=== PATIENT | male | born 1945 | race Caucasian/White ===

== ENCOUNTER 2018-06-08 05:07 | Day surgery (SDC) | payer MEDICARE, SELFPAY ==
[2018-06-04 15:15] VITALS: BMI 22.8
[2018-06-08] VITALS (7 sets, daily range): BP systolic 117–153; BP diastolic 70–90; PULSE 62–97; RESP 16–18; TEMP 36.5–36.9; O2SAT 95–98; BMI 22.2
--- NOTE | 2018-06-08 | COLBX_PTH ---
PATIENT: CHELE AHN LOC: EN U#:[id number] AGE/SX: 73/M ROOM: RE06/08/[address]: Dr. Juan Miguel Pulido MD : 1945 BED: DIS: 06/08/2018 SPEC #: [id number] RECD: 06/08/18 13:17 STATUS: DELON RERhea #: [id number] DELMI: 06/08/18 00:[address]: Juan Miguel Pulido DEPT: SURGICAL PATHOLOGY RECD BY: Isaias Bailey ENTERED: 06/08/18 13:20 SP TYPE: COLON BX OTHR DR: Dr. Genaro Pulido III, MD Tissues: Cecum, NOS Procedures: Surgery Specimen Level IV HEADER OPERATION: Colonoscopy (MAC) PRE-OP DIAGNOSIS: Family history of colon cancer TISSUE SUBMITTED: Cecal polyp MICROSCOPIC DIAGNOSIS Cecal polyp, biopsy: Fragments of tubular adenoma. Fragments of fecal material. SJ:mary 12/12/18 MICROSCOPIC DESCRIPTION Slides are reviewed. GROSS DESCRIPTION Received in fixative is one container labeled with the patient's name and designated cecal polyp. The specimen consists of multiple irregular fragments of armijo soft tissue mixed with fecal material that in aggregate measure 1.5 x 0.2 x 0.1 cm. The specimen is totally submitted in one cassette. / SJ:mary 06/08/18 TC:1 CPT: 01138
--- NOTE | 2018-06-08 07:00 | OP.ENDO_ITS ---
Patient Name: Cat Gonzalez Procedure Date: 06/08/2018 6:08 AM Date of : 1945 Age: 73 Procedure: Colonoscopy Indications: Family history of colon cancer in a first-degree relative Providers: Juan Miguel Pulido MD Referring MD: Juan Miguel Pulido MD Medicines: See the Anesthesia note for documentation of the administered medications Patient Profile: Last Colonoscopy: February 2013. Complications: No immediate complications. Procedure: Pre-Anesthesia Assessment: - Prior to the procedure, a History and Physical was performed, and patient medications and allergies were reviewed. The patient's tolerance of previous anesthesia was also reviewed. The risks and benefits of the procedure and the sedation options and risks were discussed with the patient. All questions were answered, and informed consent was obtained. Prior Anticoagulants: The patient has taken no previous anticoagulant or antiplatelet agents. ASA Grade Assessment: II - A patient with mild systemic disease. After reviewing the risks and benefits, the patient was deemed in satisfactory condition to undergo the procedure. After I obtained informed consent, the scope was passed under direct vision. Throughout the procedure, the patient's blood pressure, pulse, and oxygen saturations were monitored continuously. The Colonoscope was introduced through the anus and advanced to the cecum, identified by appendiceal orifice and ileocecal valve. The colonoscopy was performed without difficulty. The patient tolerated the procedure well. The quality of the bowel preparation was good. The ileocecal valve and the appendiceal orifice were photographed. Scope In: 6:40:54 AM Scope Withdrawal Time 0 hours 8 minutes 34 seconds Scope Out: 6:53:36 AM Total Procedure Duration Time 0 hours 12 minutes 42 seconds Findings: Hemorrhoids were found on perianal exam. Prostate normal Multiple diverticula were found in the sigmoid colon and descending colon. A 7 mm polyp was found in the cecum. The polyp was sessile. The polyp was removed with a cold snare. Resection and retrieval were complete. Impression: - Hemorrhoids found on perianal exam. - Diverticulosis in the sigmoid colon and in the descending colon. - One 7 mm polyp in the cecum, removed with a cold snare. Resected and retrieved. Recommendation: - Telephone my office for pathology results in 1 week. - Resume previous diet. - Continue present medications. - Repeat colonoscopy in 5 years for surveillance. Procedure Code(s): --- Professional --- 08238, Colonoscopy, flexible; with removal of tumor(s), polyp(s), or other lesion(s) by snare technique Diagnosis Code(s): --- Professional --- K64.9, Unspecified hemorrhoids D12.0, Benign neoplasm of cecum Z80.0, Family history of malignant neoplasm of digestive organs K57.30, Diverticulosis of large intestine without perforation or abscess without bleeding CPT copyright 2017 [employer]. All rights reserved. The codes documented in this report are preliminary and upon induction heating equipment setter review may be revised to meet current compliance requirements. Juan Miguel Pulido MD 06/08/2018 6:59:37 AM This report has been signed electronically. Number of Addenda: 0 Note Initiated On: 06/08/2018 6:08 AM
--- OUTSIDE RECORDS SUMMARY | 2018-07-25 04:42 | XMS RPT_ITS ---
:1945 Author Organization OHIP Care Team Providers Name Role Phone JACKELIN JAFFE (DIRECTOR OF SAFETY AND SECURITY) Referring Unavailable CEBUL IIIBUTCH Attending Unavailable CEBUL IIIBUTCH Attending Unavailable CEBUL IIIBUTCH Referring Unavailable MARIA T CORONA Referring Unavailable WILLIAM GARCIA (PA) Attending Unavailable CEBUL IIIBUTCH Attending Unavailable CEBUL IIIBUTCH Referring Unavailable RANI MATTSON ([facility]) Attending Unavailable CEBUL IIIBUTCH Attending Unavailable CEBUL IIIBUTCH Referring Unavailable RANI MATTSON ([facility]) Attending Unavailable BHARAT BELL Attending Unavailable CEBUL IIIBUTCH Referring Unavailable RANI MATTSON ([facility]) Attending Unavailable CEBUL IIIBUTCH Referring Unavailable CEBUL IIIBUTCH Attending Unavailable CEBUL IIIBUTCH Referring Unavailable CLAUDIO JOHNS Admitting Unavailable CLAUDIO JOHNS Attending Unavailable Juan Miguel Pulido Attending Unavailable RocklJuan Miguel Attending Unavailable Tess Juan Miguel Referring Unavailable Cebul IIIButch Primary Care Unavailable Juan Miguel Pulido Attending Unavailable Juan Miguel Pulido Referring Unavailable Cebul III, Butch Primary Care Unavailable Nurse, Surgery Attending Unavailable Cebul III, Butch Referring Unavailable RockJuan Miguel kilgore Attending Unavailable Bharat Bell Referring Unavailable PROBLEMS PROBLEMS DATE TYPE CONDITION / CODE ATTENDING STATUS SOURCE 07/19/2018 Active Other [place] [facility] NA Active [place] [facility] Main therapy / [place] Z79.899(ICD-10) Repository 07/13/2018 Unknown Z80.0 - Family CeJuan Miguel gonzalez Active [place] history of malignant Community neoplasm of Hospital digestive organs / Repository Z80.0(ICD-10) 07/13/2018 Unknown 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 Miguel 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 / Community D12.0(ICD-10) Hospital Repository 07/13/2018 Unknown K57.30 - CebulJuan Miguel Active [facility] Diverticulosis of [facility] large intestine Hospital without perforation Repository or abscess without bleeding / K57.30(ICD-10) 07/13/2018 Unknown K64.9 - Unspecified CebuJuan Miguel kilgore Active [facility] hemorrhoids / Community K64.9(ICD-10) Hospital Repository 06/04/2018 Unknown E04.2 - Nontoxic CebuJuan Miguel kilgore Active [place] multinodular goiter Community / E04.2(ICD-10) Hospital Repository 04/13/2018 Active Other intervertebral CLAUDIO JOHNS Active [place] disc degeneration, Clinic Other lumbosacral region / [place] M51.37(ICD-10) Repository 04/13/2018 Active Intervertebral disc CLAUDIO JOHNS Active [place] disorders with Clinic Other radiculopathy, [place] lumbar region / Repository M51.16(ICD-10) 11/19/2017 Active Benign prostatic NA Active [place] hyperplasia with Clinic Main lower urinary tract [place] symptoms / Repository N40.1(ICD-10) 11/19/2017 Active Other obstructive NA Active [place] and reflux uropathy Clinic Main / N13.8(ICD-10) [place] Repository 08/03/2017 Active Cough / R05(ICD-10) NA Active [facility] Main [place] Repository PROCEDURES PROCEDURES No Procedure Records FoundRESULTS RESULTS PROGRESS Observed: 07/20/2018 Status: COMPLETED Source: [place] 12:47 PM [facility] REPOSITORY HNO ID: [id number] Author: Butch Pulido III Service: (none) Author Type: Physician Type: Progress Notes Filed: 07/20/2018 12:47 PM Note Text: Pritesh, Good news?the lab results look fine. Continue healthy, balanced diet and stay physically active. Same medications. Butch Pulido III, MD, FAAFP PROGRESS Observed: 07/20/2018 Status: COMPLETED Source: [place] 10:30 AM [facility] REPOSITORY [facility] ID: [id number] Author: Butch Pulido III Service: (none) Author Type: Physician Type: Progress Notes Filed: 07/20/2018 11:50 AM Note Text: SUBJECTIVE: This is a 73 year old male that is here today for Chronic Medical Conditions. 1. ch insomnia--rare use of ambien [employer] will no longer pay for it. Needs to change to another med 2. paroxysmal atrial fib 3. SA node dysfunction 4. tachy-bora syndrome 5. moderate depression--improved. Smiling and laughing more. Getting out with friends. PAST MEDICAL HISTORY Diagnosis Date - A-fib ([facility]) - Arrhythmia - Asthma - Cardiac syncope 02/05/2016 - Chronic obstructive pulmonary disease (COPD) ([facility]) - Congestive heart failure ([facility]) - Degenerative cervical disc 02/05/2011 - Diverticulosis of colon (without mention of hemorrhage) Diverticulosis - Family history of other specified malignant neoplasm FX HX COLON CA - GERD (gastroesophageal reflux disease) 06/27/2011 - Hypertension 08/09/2012 - Hypertrophy of prostate without urinary obstruction and other lower urinary tract symptoms (LUTS) - Inguinal hernia without mention of obstruction or gangrene, bilateral, (not specified as recurrent) - Lumbar disc disease with radiculopathy 02/10/2014 - Mental disorder - Moderate episode of recurrent major depressive disorder (HCC) 03/24/2017 - Osteoporosis 07/15/2011 - Other and unspecified hyperlipidemia Hyperlipidemia - Other congenital hamartoses, 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 - Pacemaker - Peripheral vascular disease ([facility]) - Renal stone 09/05/2011 - Restless leg syndrome 07/30/2010 - Restless legs syndrome (RLS) 02/22/2015 - Tachy-bora syndrome (HCC) 11/19/2015 - Thyroid disorder - Unspecified functional disorder of intestine SPASTIC COLITIS - Unspecified hemorrhoids without mention of complication Hemorrhoids - Ventricular tachycardia (HCC) 06/28/13 flecainide - Vitamin D deficiency 07/17/2011 Current Outpatient Prescriptions on File Prior to Visit: Pramipexole 0.75 mg tablet TAKE 1 TABLET TWICE DAILY NEEDED atorvastatin (LIPITOR) 10 mg tablet Take 1 tablet by mouth once daily. For cholesterol. metoprolol succinate ER (TOPROL XL) 25 mg 24 hr tablet Take 1 tablet by mouth once daily. flecainide (TAMBOCOR) 100 mg tablet Take 1 tablet by mouth twice daily. tamsulosin ER (FLOMAX) 0.4 mg cap Take 1 capsule by mouth once daily. omeprazole (PRILOSEC) 20 mg capsule TAKE 1 CAPSULE EVERY DAY ON AN EMPTY STOMACH Cholecalciferol, Vitamin D3, 1,000 unit cap Take 1 capsule by mouth once daily. zolpidem (AMBIEN) 5 mg tablet Take 1 tablet by mouth at bedtime as needed for Sedation for up to 30 days. fluticasone (FLONASE) 50 mcg/actuation nasal spray Use 2 Sprays in each nostril once daily. Rinse mouth after use. No current facility-administered medications on file prior to visit. FAMILY HISTORY Problem Relation Age of Onset - Colon Cancer Father - Cancer Sister lung cancer - other (Parkinson's disease) Sister Social History Substance Use Topics - Smoking status: Former Smoker Packs/day: 0.10 Years: 2.00 Types: Cigarettes - Smokeless tobacco: Never Used Comment: 1975 - Alcohol use Yes Comment: occasionally BP 121/74 Pulse 71 Temp 36.1 ?C (96.9 ?F) (Right Tympanic) Resp 10 Wt 73.5 kg (162 lb) BMI 25.16 kg/m? . OBJECTIVE: APPEARANCE Well appearing, alert, in no acute distress, well-hydrated, well nourished. NECK Supple, no adenopathy; thyroid symmetric, normal size, no bruits HEART irregularly irregular pulse with normal S1 and S2, no murmurs, no gallops, no JVD appreciated LUNG clear to auscultation Appearance: well dressed well groomed, cooperative and pleasant Behavior: good eye contact and laughing and joking. Talking about missing his , but adding that he has to find a way to carry on Speech: fluent and coherent Mood: euthymic and happy Affect: appropriate Perceptions: none Thought process: goal directed Thought Content: normal Intelligence level: normal Insight: good Judgment: good Lab Results for Cat AHN ( ) as of 07/20/2018 11:24 Ref. Range 07/19/2018 09:55 Total Cholesterol, Nonfasting Latest Ref Range: <200 mg/dL 156 Triglycerides, Nonfasting Latest Ref Range: <150 mg/dL 141 HDL Cholesterol, Nonfasting Latest Ref Range: >39 mg/dL 43 LDL Cholesterol, Nonfasting Latest Ref Range: <100 mg/dL 85 Non HDL Cholesterol, Nonfasting Latest Ref Range: <130 mg/dL 113 VLDL Cholesterol, Nonfasting Latest Ref Range: <30 mg/dL 28 Total Chol/HDL Ratio, Nonfasting Latest Ref Range: <5.10 mg/dL 3.63 LDL/HDL Ratio, Nonfasting Latest Ref Range: <2.54 mg/dL 1.98 ASSESSMENT: atrial fibrillation--not on anticoagulant since 2013 sinus node dysfunction and tachy-bora syndrome--stable and s/p pacemaker- major depression--much improved normal grieving of 's -- depression /anxiety with insomnia--stable hyperlipidemia--at goal PLAN: healthy diet and stay active discontinue ambien and start hydroxyzine 50mg at bedtime as needed for sleep, You may cut trazodone in half if the med causes too much sedation same other medications Butch Pulido III MD CNOV Observed: 07/20/2018 Status: COMPLETED Source: [place] 10:20 AM [facility] REPOSITORY Office Visit (FAMPWS) Cat AHN ([id number]) 1945 M NFR Date Time Provider Department 07/20/18 10:20 AM BUTCH PULIDO IIIPWS During your visit today, we recorded the following information about you: Temperature Pulse Respiration Blood pressure 96.9 degrees 71/minute 10/minute 121/74 Weight 73.5 kg Butch Pulido III MD 07/20/2018 11:50 AM Signed SUBJECTIVE: This is a 73 year old male that is here today for Chronic Medical Conditions. 1. ch insomnia--rare use of ambien [employer] will no longer pay for it. Needs to change to another med 2. paroxysmal atrial fib 3. SA node dysfunction 4. tachy-bora syndrome 5. moderate depression--improved. Smiling and laughing more. Getting out with friends. PAST MEDICAL HISTORY Diagnosis Date - A-fib ([facility]) - Arrhythmia - Asthma - Cardiac syncope 02/05/2016 - Chronic obstructive pulmonary disease (COPD) ([facility]) - Congestive heart failure ([facility]) - Degenerative cervical disc 02/05/2011 - Diverticulosis of colon (without mention of hemorrhage) Diverticulosis - Family history of other specified malignant neoplasm FX HX COLON CA - GERD (gastroesophageal reflux disease) 06/27/2011 - Hypertension 08/09/2012 - Hypertrophy of prostate without urinary obstruction and other lower urinary tract symptoms (LUTS) - Inguinal hernia without mention of obstruction or gangrene, bilateral, (not specified as recurrent) - Lumbar disc disease with radiculopathy 02/10/2014 - Mental disorder - Moderate episode of recurrent major depressive disorder ([facility]) 03/24/2017 - Osteoporosis 07/15/2011 - Other and unspecified hyperlipidemia Hyperlipidemia - Other congenital hamartoses, not elsewhere classified ([facility]) skull - Pacemaker - Peripheral vascular disease ([facility]) - Renal stone 09/05/2011 - Restless leg syndrome 07/30/2010 - Restless legs syndrome (RLS) 02/22/2015 - Tachy-bora syndrome ([facility]) 11/19/2015 - Thyroid disorder - Unspecified functional disorder of intestine SPASTIC COLITIS - Unspecified hemorrhoids without mention of complication Hemorrhoids - Ventricular tachycardia ([facility]) 06/28/13 flecainide - Vitamin D deficiency 07/17/2011 Current Outpatient Prescriptions on File Prior to Visit: Pramipexole 0.75 mg tablet TAKE 1 TABLET TWICE DAILY NEEDED atorvastatin (LIPITOR) 10 mg tablet Take 1 tablet by mouth once daily. For cholesterol. metoprolol succinate ER (TOPROL XL) 25 mg 24 hr tablet Take 1 tablet by mouth once daily. flecainide (TAMBOCOR) 100 mg tablet Take 1 tablet by mouth twice daily. tamsulosin ER (FLOMAX) 0.4 mg cap Take 1 capsule by mouth once daily. omeprazole (PRILOSEC) 20 mg capsule TAKE 1 CAPSULE EVERY DAY ON AN EMPTY STOMACH Cholecalciferol, Vitamin D3, 1,000 unit cap Take 1 capsule by mouth once daily. zolpidem (AMBIEN) 5 mg tablet Take 1 tablet by mouth at bedtime as needed for Sedation for up to 30 days. fluticasone (FLONASE) 50 mcg/actuation nasal spray Use 2 Sprays in each nostril once daily. Rinse mouth after use. No current facility-administered medications on file prior to visit. FAMILY HISTORY Problem Relation Age of Onset - Colon Cancer Father - Cancer Sister lung cancer - other (Parkinson's disease) Sister Social History Substance Use Topics - Smoking status: Former Smoker Packs/day: 0.10 Years: 2.00 Types: Cigarettes - Smokeless tobacco: Never Used Comment: 1975 - Alcohol use Yes Comment: occasionally BP 121/74 Pulse 71 Temp 36.1 ?C (96.9 ?F) (Right Tympanic) Resp 10 Wt 73.5 kg (162 lb) BMI 25.16 kg/m? . OBJECTIVE: APPEARANCE Well appearing, alert, in no acute distress, well- hydrated, well nourished. NECK Supple, no adenopathy; thyroid symmetric, normal size, no bruits HEART irregularly irregular pulse with normal S1 and S2, no murmurs, no gallops, no JVD appreciated LUNG clear to auscultation Appearance: well dressed well groomed, cooperative and pleasant Behavior: good eye contact and laughing and joking. Talking about missing his , but adding that he has to find a way to carry on Speech: fluent and coherent Mood: euthymic and happy Affect: appropriate Perceptions: none Thought process: goal directed Thought Content: normal Intelligence level: normal Insight: good Judgment: good Lab Results for Cat AHN ( ) as of 07/20/2018 11:24 Ref. Range 07/19/2018 09:55 Total Cholesterol, Nonfasting Latest Ref Range: <200 mg/dL 156 Triglycerides, Nonfasting Latest Ref Range: <150 mg/dL 141 HDL Cholesterol, Nonfasting Latest Ref Range: >39 mg/dL 43 LDL Cholesterol, Nonfasting Latest Ref Range: <100 mg/dL 85 Non HDL Cholesterol, Nonfasting Latest Ref Range: <130 mg/dL 113 VLDL Cholesterol, Nonfasting Latest Ref Range: <30 mg/dL 28 Total Chol/HDL Ratio, Nonfasting Latest Ref Range: <5.10 mg/dL 3.63 LDL/HDL Ratio, Nonfasting Latest Ref Range: <2.54 mg/dL 1.98 ASSESSMENT: atrial fibrillation--not on anticoagulant since 2013 sinus node dysfunction and tachy-bora syndrome--stable and s/p pacemaker- major depression--much improved normal grieving of 's -- depression /anxiety with insomnia--stable hyperlipidemia--at goal PLAN: healthy diet and stay active discontinue ambien and start hydroxyzine 50mg at bedtime as needed for sleep, You may cut trazodone in half if the med causes too much sedation same other medications SANIA Ramon MD, III MD 07/20/2018 10:48 AM Signed PLAN: healthy diet and stay active discontinue ambien and start hydroxyzine 50mg at bedtime as needed for sleep, You may cut trazodone in half if the med causes too much sedation same other medications Butch Pulido III MD Referring Provider: BUTCH PULIDO III [[id number]] Allergies As of Date: 07/20/2018 (No Known Allergies) Date Reviewed: 07/20/2018 Reviewed by: Izabella Silverman Ma - Fully Assessed Reason for Visit: Medication Follow-up [270] Primary Visit Diagnosis:Paroxysmal atrial fibrillation (HCC) [I48.0] Other Visit Diagnoses:Essential hypertension [I10] Tachy-bora syndrome (HCC) [I49.5] Sinus node dysfunction (HCC) [I49.5] Moderate episode of recurrent major depressive disorder (HCC) [F33.1] Pacemaker [Z95.0] Chronic insomnia [F51.04] Hyperlipidemia, unspecified hyperlipidemia type [E78.5] Order(s):traZODone (DESYREL) 50 mg tabletTake 1 tablet by mouth daily at bedtime. as needed for sleepDisp: 90 tabletRfl: 3 Prescriptions as of 07/20/2018 Sig: PRAMIPEXOLE 0.75 MG TABLET TAKE 1 TABLET TWICE DAILY * ATORVASTATIN 10 MG TABLET Take 1 tablet by mouth once d* METOPROLOL SUCCINATE ER 25 MG* Take 1 tablet by mouth once d* FLECAINIDE 100 MG TABLET Take 1 tablet by mouth twice * TAMSULOSIN 0.4 MG CAPSULE Take 1 capsule by mouth once * OMEPRAZOLE 20 MG CAPSULE,CHATA* TAKE 1 CAPSULE EVERY DAY ON A* CHOLECALCIFEROL (VITAMIN D3) * Take 1 capsule by mouth once * TRAZODONE 50 MG TABLET Take 1 tablet by mouth daily * FLUTICASONE 50 MCG/ACTUATION * Use 2 Sprays in each nostril * More... More... More... Problem List As Of Date 07/20/2018 Noted Resolved Unspecified functional disorder of intestine [K* 2018 More... FAMILY HX-MALIGNANCY NEC [Z80.8] More... Inguinal hernia without mention of obstruction * 06/06/2014 ESOPHAGEAL REFLUX [K21.9] INVALID FOR* Anxiety state, unspecified [F41.1] INVALID FOR*07/20/2018 Disorders of bursae and tendons in shoulder reg*INVALID FOR*07/10/2016 HEMORRHOIDS EXTERNAL THROMBOSED [K64.5] INVALID FOR*07/10/2016 MITRAL/AORTIC FAB INSUFF [I08.0] INVALID FOR*10/20/2007 BPH with obstruction/lower urinary tract sympto*INVALID FOR* Chest pain, unspecified [R07.9] INVALID FOR*07/10/2016 LUMB/LUMBOSAC DISC DEGEN [M51.37] INVALID FOR* Skin cancer of anterior chest [C44.509] INVALID FOR*07/20/2018 Restless leg syndrome [G25.81] INVALID FOR* Degenerative cervical disc [M50.30] INVALID FOR* GERD (gastroesophageal reflux disease) [K21.9] INVALID FOR* Osteoporosis [M81.0] INVALID FOR* Vitamin D deficiency [E55.9] INVALID FOR* Renal stone [N20.0] INVALID FOR* Erectile dysfunction [N52.9] INVALID FOR* Testalgia [N50.819] INVALID FOR*07/10/2016 Noncompliance [Z91.19] INVALID FOR*06/06/2014 Paroxysmal atrial fibrillation (HCC) [I48.0] INVALID FOR* More... Congestive heart failure (HCC) [I50.9] INVALID FOR*06/06/2014 More... 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 Mitral valve regurgitation [I34.0] INVALID FOR* More... Hyperlipidemia [E78.5] INVALID FOR* More... More... More... Mechanically assisted ventilation [Z99.11] INVALID FOR*08/07/2012 More... Stress hyperglycemia [R73.9] INVALID FOR*06/06/2014 More... Atelectasis [J98.11] INVALID FOR*06/06/2014 More... Hypotension, unspecified [I95.9] INVALID FOR*08/09/2012 More... Hypertension [I10] INVALID FOR* More... More... SUMMARY [V999.95] INVALID FOR* More... Leukocytosis [D72.829] INVALID FOR*2018 More... Multiple thyroid nodules [E04.2] INVALID FOR* S/P cervical spinal fusion [Z98.1] INVALID FOR* Cervical strain [S16.1XXA] INVALID FOR*2018 Myofascial pain [M79.18] INVALID FOR*2018 Nonsustained ventricular tachycardia (HCC) [I47*INVALID FOR*06/06/2014 Near syncope [R55] INVALID FOR*06/06/2014 S/P mitral valve repair [Z98.890] INVALID FOR* Ventricular tachycardia [I47.2] INVALID FOR* Lumbar disc disease with radiculopathy [M51.16] INVALID FOR*2018 Hip arthritis [M16.10] INVALID FOR*2018 Prostate cancer (HCC) [C61] INVALID FOR* Displacement of lumbar intervertebral disc with*INVALID FOR*2018 Situational depression [F43.21] INVALID FOR*2018 Restless legs syndrome (RLS) [G25.81] INVALID FOR* IT band syndrome [M76.30] INVALID FOR*11/19/2015 Tachy-bora syndrome (HCC) [I49.5] INVALID FOR* Lumbar facet arthropathy (HCC) [M47.816] INVALID FOR* Trochanteric bursitis of left hip [M70.62] INVALID FOR*2018 Sinus node dysfunction (HCC) [I49.5] INVALID FOR* Cardiac syncope [R55] INVALID FOR* Impaired swallowing [R13.10] INVALID FOR* Moderate episode of recurrent major depressive *INVALID FOR* Pacemaker [Z95.0] INVALID FOR* Lumbar disc disease with radiculopathy [M51.16] INVALID FOR*07/20/2018 More... Lumbar disc herniation with radiculopathy [M51.*INVALID FOR*07/20/2018 More... Displacement of lumbar intervertebral disc with*INVALID FOR*07/20/2018 Other instructions from your clinician: PLAN: healthy diet and stay active discontinue ambien and start hydroxyzine 50mg at bedtime as needed for sleep, You may cut trazodone in half if the med causes too much sedation same other medications Butch Pulido III MD Prescriptions ordered this encounter Disp Refills Start End TRAZODONE 50 MG TABLET 90 t* 3 07/20/2018 Route: ORAL Sig: Take 1 tablet by mouth daily at bedtime. as needed for sleep Medications Discontinued During This Encounter zolpidem (AMBIEN) 5 mg tablet 30 t* 2 09/11/2017 07/20/2018 Class: Print RX Route: ORAL Sig: Take 1 tablet by mouth at bedtime as needed for Sedation for up to 30 days. Disc: Not on Formulary Encounter Status:Closed by BUTCH PULIDO III, MD on 07/20/18 LIPID PANEL, NONFAST Collected: 07/19/2018 Status: F Source: [place] 9:55 AM [facility] [place] REPOSITORY TYPE CODE TESTS RESULT OUT OF REFERENCE UNITS RANGE LAB CHOLNF <200 mg/dL Total Cholesterol NF 156 Result Comment: <200 mg/dL, Desirable 200-239 mg/dL, Borderline high >239 mg/dL, High LAB TRIGNF <150 mg/dL Triglycerides, NF 141 Result Comment: <150 mg/dL, Normal 150-199 mg/dL, Borderline high 200-499 mg/dL, High >499 mg/dL, Very high LAB HDLNF >39 mg/dL HDL Cholesterol, NF 43 Result Comment: 40-59 mg/dL, Acceptable >59 mg/dL, High: Negative risk factor for coronary heart disease <40 mg/dL, Low: Positive risk factor for coronary heart disease LAB LDLNF <100 mg/dL LDL Cholesterol, NF 85 Result Comment: <100 mg/dL, Optimal 100-129 mg/dL, Near optimal/above optimal 130-159 mg/dL, Borderline high 160-189 mg/dL, High >189 mg/dL, Very high Secondary prevention optimal LDL Cholesterol levels are recommended to be < 70 mg/dL LAB NOHDLN <130 mg/dL Non HDL Chol, 113 NF Result Comment: <130 mg/dL, Optimal 130-159 mg/dL, Near optimal/above optimal 160-189 mg/dL, Borderline high 190-219 mg/dL, High >219 mg/dL, Very high Secondary prevention optimal non HDL Cholesterol levels are recommended to be < 100 mg/dL LAB VLDLNF <30 mg/dL VLDL Cholesterol, NF 28 LAB TCHDLN <5.10 mg/dL T Chol/HDL Ratio NF 3.63 LAB LDLHDN <2.54 mg/dL LDL/HDL Ratio, NF 1.98 Result Comment: Reference: 1. National Cholesterol Education Program ATP III Guideline At-A-Glance Quick Desk Reference: National Heart, Lung, and Blood [place]. National Institutes of Health. 2001: NIH Publication No. 01-3305. 2. An International Atherosclerosis Society position paper: global recommendations for the management of dyslipidemia: executive summary, Atherosclerosis. 2014: 232(2):410-413. Performed By: #### LIPNF #### [facility] [address] [id number] BASIC METABOLIC PANL Collected: 07/19/2018 Status: F Source: [place] 9:52 AM [facility] REPOSITORY TYPE CODE TESTS RESULT OUT OF REFERENCE UNITS RANGE LAB GLU 74-99 mg/dL Glucose 97 Result Comment: The [place] Diabetes Association (ADA) provides guidance for cutoff values for fasting glucose and random glucose. The ADA defines fasting as no caloric intake for at least 8 hours. Fas ting plasma glucose results between 100 to 125 mg/dL indicate increased risk for diabetes (prediabetes). Fasting plasma glucose results greater than or equal to 126 mg/dL meet the criteria for diagnosis of diabetes. In the absence of unequivocal hyperglycemia, results should be confirmed by repeat testing. In a patient with classic symptoms of hyperglycemia or hyperglycemic crisis, random plasma glucose results greater than or equal to 200 mg/dL meet the criteria for diagnosis of diabetes. Reference: Standards of Medical Care in Diabetes 2016, [place] [employer]. Diabetes Care. 2016.39(Suppl 1). LAB BUN 9-24 mg/dL BUN High 25 LAB CRET 0.73-1.22 mg/dL Creatinine 0.81 LAB NA 136-144 mmol/L Sodium 139 LAB K 3.7-5.1 mmol/L Potassium 4.0 LAB CL 97-105 mmol/L Chloride 102 LAB CO2 22-30 mmol/L CO2 26 LAB AGAP 9-18 mmol/L Anion Gap 11 LAB CA 8.5-10.2 mg/dL Calcium, Total 9.1 LAB GFRAA eGFR- Amer. >60 LAB GFRNAA . eGFR-All Other Races >60 Result Comment: eGFR (Estimated GFR) Units of measure: mL/min/1.73 meters squared eGFR is derived from the reexpressed MDRD Study equation using the following parameters: serum creatinine, age, gender and race. The creatinine assay has been calibrated to be traceable to IDMS. An eGFR <60 mL/min/1.73m2 for >3 months is consistent with chronic kidney disease. Refer to KDOQI guidelines for clinical interpretation. In patients with unstable renal function, e.g. those with acute kidney injury, the eGFR may not accurately reflect actual GFR. Performed By: #### BMP #### [facility] [place], [place] [address] CNOV Observed: 06/14/2018 Status: COMPLETED Source: [place] 9:00 AM [facility] RE[facility] Office Visit (PNMDNA) Cat AHN ([id number]) 1945 M NFR Date Time Provider Department 06/14/18 9:00 AM RANI MATTSON (LUIS F) PNMDMEME During your visit today, we recorded the following information about you: Pulse Weight Height 93/minute 73 kg 1.709 m Rani Mattson APRN.CNP 06/14/2018 9:34 AM Signed SUBJECTIVE: Cat Ahn presents to [facility] for a followup appointment for low back post injection. Since the last visit, Cat Ahn states the pain has been improving. Current pain intensity is 0 on a scale of 0-10. Pain located in Back area and does not radiate. Pain described as N/A The patient Denies weakness, numbness, tingling, morning stiffness, leg pain and leg weakness. Symptoms interfere with nothing. Pain is exacerbated by nothing. Pain is mitigated by nothing. The patient is overall improved with the injections by 99%. REVIEW OF SYSTEMS: Constitutional: (-) Fever (-) Night Sweats (-) Weight Gain (-) Weight Loss (-) Fatigue Cardiovascular: (-) Chest Pain (-) Palpitations (-) Lightheadedness (-) Swelling of Ankles (+) Hx Heart Surgery Respiratory: (-) Shortness of Breath (-) Cough (-) Wheezing (+) Snoring Gastrointestinal: (-) Incontinence (-) Abdominal Pain (-) Diarrhea (-) Constipation (-) Nausea/Vomiting (+) Heart Burn Endocrine: (+) Thyroid Disorder (-) Diabetes Hematologic: (-) Prolonged Bleeding (-) Easy Bruising Genitourinary: (-) Incontinence (-) Frequency (-) Urinary Urgency Skin: (-) Rashes (-) Itching (-) Other Lesions Neurologic: (-) Headache (-) Double Vision (-) Confusion (-) Paralysis Psychiatric: (-) Depression (-) Anxiety (-) Delusions (-) Hallucinations (-) Personal History of Alcohol or Substance Abuse (+) Family History of Alcohol or Substance Abuse OBJECTIVE: Pulse 93 Ht 5' 7.283 (1.71m) Wt 161 lb (73.0kg) SpO2 96% BMI 25.00 kg/(m2). PHYSICAL EXAMINATION: General appearance: Well appearing, in no acute distress, alert Skin: Skin color, texture, turgor normal, no rashes or lesions Neck: No pain to palpation over the cervical paraspinous muscles. No pain with neck flexion, extension, or lateral flexion Cardiovascular: Regular rate Lungs: Normal respiratory rate and rhythm Abdomen: Abdomen soft and non-tender. Back: Intact range of motion with pain reproduction. Facet:positive facet loading Spine: Reports Tenderness on palpation: Lumbar/Pelvic axial Extremities: No deformities, edema, or skin discoloration. Good capillary refill. Musculoskeletal: Joint pain denies Neuro: No loss of sensation is noted. Station and Gait: Normal stance, normal gait. Motor: Exhibits full strength in all four extremities. Trigger points: none. ASSESSMENT: Assessment : Patient reports lower back pain, denies radicular symptoms He had a bilateral L4, 5, S1 facet injections on 11?8?18 and reports 99% improvement He takes baclofen and [place] when necessary Encounter Diagnosis ICD-10-CM 1. Lumbar disc disease with radiculopathy M51.16 2. Lumbar facet arthropathy M47.816 3. Degeneration of lumbar or lumbosacral intervertebral disc M51.37 4. Displacement of lumbar intervertebral disc without myelopathy M51.26 PDMP website checked and validated. All prescriptions have been APPROPRIATELY filled. No suspicious activity was identified. 06/14/2018 by Mahogany Abreu Ma Narcotic Agreement reviewed and signed?: N/A on June 14, 2018 The pain panel was N/A PLAN: Injection history was reviewed. Medication use and compliance were reviewed. 1. Continue medication management through the Pain Management [facility] 2. No refills needed for the baclofen Signed Prescriptions Disp Refills HYDROcodone-acetaminophen (NORCO) 5-325 mg per tablet 12 tablet 0 Sig: Take 1 tablet by mouth every 6 hours as needed for up to 3 days. MIMA Class: C-II JOLIE: No 3. Interventional procedure options discussed. None at this time 4. Encouraged regular home exercise program. 5) F/U in 6 months This note was partially generated using [email or web address] voice recognition system. The above plan and management options were discussed at length with patient. Patient is in agreement with the above and verbalized understanding. Rani Mattson APRN, DIRECTOR OF SAFETY AND SECURITY June 14, 2018 Referring Provider: SELF [200] Allergies As of Date: 06/14/2018 (No Known Allergies) Date Reviewed: 06/14/2018 Reviewed by: Mahogany Abreu Ma - Fully Assessed Reason for Visit: Follow Up [171] Primary Visit Diagnosis:Lumbar disc disease with radiculopathy [M51.16] Other Visit Diagnoses:Lumbar facet arthropathy [M47.816] Degeneration of lumbar or lumbosacral intervertebral disc [M51.37] Displacement of lumbar intervertebral disc without myelopathy [M51.26] Order(s):HYDROcodone-acetaminophen (NORCO) 5-325 mg per tabletTake 1 tablet by mouth every 6 hours as needed for up to 3 days.Disp: 12 tabletRfl: 0 Prescriptions as of 06/14/2018 Sig: ATORVASTATIN 10 MG TABLET Take 1 tablet by mouth once d* CHOLECALCIFEROL (VITAMIN D3) * Take 1 capsule by mouth once * FLECAINIDE 100 MG TABLET Take 1 tablet by mouth twice * FLUTICASONE 50 MCG/ACTUATION * Use 2 Sprays in each nostril * METOPROLOL SUCCINATE ER 25 MG* Take 1 tablet by mouth once d* OMEPRAZOLE 20 MG CAPSULE,CHATA* TAKE 1 CAPSULE EVERY DAY ON A* PRAMIPEXOLE 0.75 MG TABLET Take 0.75 mg by mouth twice d* TAMSULOSIN 0.4 MG CAPSULE Take 1 capsule by mouth once * ZOLPIDEM 5 MG TABLET Take 1 tablet by mouth at bed* HYDROCODONE 5 MG-ACETAMINOPHE* Take 1 tablet by mouth every * More... More... More... Problem List As Of Date 06/14/2018 Noted Resolved Unspecified functional disorder of intestine [K* 2018 More... FAMILY HX-MALIGNANCY NEC [Z80.8] More... Inguinal hernia without mention of obstruction * 06/06/2014 ESOPHAGEAL REFLUX [K21.9] INVALID FOR* ANXIETY STATE NOS [F41.1] INVALID FOR* Disorders of bursae and tendons in shoulder reg*INVALID FOR*07/10/2016 HEMORRHOIDS EXTERNAL THROMBOSED [K64.5] INVALID FOR*07/10/2016 MITRAL/AORTIC FAB INSUFF [I08.0] INVALID FOR*10/20/2007 BPH with obstruction/lower urinary tract sympto*INVALID FOR* HYPERTONICITY OF BLADDER [N31.8] INVALID FOR* Chest pain, unspecified [R07.9] INVALID FOR*07/10/2016 LUMB/LUMBOSAC DISC DEGEN [M51.37] INVALID FOR* Skin Cancer of Anterior Chest [C44.519] INVALID FOR* Restless leg syndrome [G25.81] INVALID FOR* Degenerative cervical disc [M50.30] INVALID FOR* GERD (gastroesophageal reflux disease) [K21.9] INVALID FOR* Osteoporosis [M81.0] INVALID FOR* Vitamin D deficiency [E55.9] INVALID FOR* Renal stone [N20.0] INVALID FOR* Erectile dysfunction [N52.9] INVALID FOR* Testalgia [N50.819] INVALID FOR*07/10/2016 Noncompliance [Z91.19] INVALID FOR*06/06/2014 Paroxysmal atrial fibrillation (HCC) [I48.0] INVALID FOR* More... Congestive heart failure (HCC) [I50.9] INVALID FOR*06/06/2014 More... 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 Mitral valve regurgitation [I34.0] INVALID FOR* More... Hyperlipidemia [E78.5] INVALID FOR* More... More... More... Mechanically assisted ventilation [Z99.11] INVALID FOR*08/07/2012 More... Stress hyperglycemia [R73.9] INVALID FOR*06/06/2014 More... Atelectasis [J98.11] INVALID FOR*06/06/2014 More... Hypotension, unspecified [I95.9] INVALID FOR*08/09/2012 More... Hypertension [I10] INVALID FOR* More... More... SUMMARY [V999.95] INVALID FOR* More... Leukocytosis [D72.829] INVALID FOR*2018 More... Multiple thyroid nodules [E04.2] INVALID FOR* History of atrial fibrillation [Z86.79] INVALID FOR* DDD (degenerative disc disease), cervical [M50.*INVALID FOR* S/P cervical spinal fusion [Z98.1] INVALID FOR* Cervical strain [S16.1XXA] INVALID FOR*2018 Myofascial pain [M79.18] INVALID FOR*2018 Nonsustained ventricular tachycardia (HCC) [I47*INVALID FOR*06/06/2014 Near syncope [R55] INVALID FOR*06/06/2014 S/P mitral valve repair [Z98.890] INVALID FOR* Ventricular tachycardia [I47.2] INVALID FOR* Lumbar disc disease with radiculopathy [M51.16] INVALID FOR*2018 Hip arthritis [M16.10] INVALID FOR*2018 Prostate cancer (HCC) [C61] INVALID FOR* Displacement of lumbar intervertebral disc with*INVALID FOR*2018 Elevated prostate specific antigen (PSA) [R97.2*INVALID FOR* Situational depression [F43.21] INVALID FOR*2018 Restless legs syndrome (RLS) [G25.81] INVALID FOR* IT band syndrome [M76.30] INVALID FOR*11/19/2015 Tachy-bora syndrome (HCC) [I49.5] INVALID FOR* History of lumbar surgery [Z98.890] INVALID FOR* Lumbar facet arthropathy (HCC) [M47.816] INVALID FOR* Trochanteric bursitis of left hip [M70.62] INVALID FOR*2018 Sinus node dysfunction (HCC) [I49.5] INVALID FOR* Cardiac syncope [R55] INVALID FOR* Impaired swallowing [R13.10] INVALID FOR* Moderate episode of recurrent major depressive *INVALID FOR* Pacemaker [Z95.0] INVALID FOR* Lumbar disc disease with radiculopathy [M51.16] INVALID FOR* Degeneration of lumbosacral intervertebral disc*INVALID FOR* More... Lumbar disc herniation with radiculopathy [M51.*INVALID FOR* More... Displacement of lumbar intervertebral disc with*INVALID FOR* Prescriptions ordered this encounter Disp Refills Start End HYDROCODONE 5 MG-ACETAMINOPHEN 325 M* 12 t* 0 06/14/2018 06/17/2018 Class: Print RX Route: ORAL Sig: Take 1 tablet by mouth every 6 hours as needed for up to 3 days. Medications Discontinued During This Encounter HYDROcodone-acetaminophen (NORCO) 5-* 12 t* 0 12/24/2017 06/14/2018 Class: Print RX Route: ORAL Sig: Take 1 tablet by mouth every 6 hours as needed for up to 3 days. Disc: Reason for discontinue is not on file. Encounter Status:Closed by RANI MATTSON on 06/14/18 PROGRESS Observed: 06/14/2018 Status: COMPLETED Source: [place] 8:59 AM [facility] REPOSITORY O ID: [id number] Author: Rani Lazo (Survey Supervisor) Kelly Service: (none) Author Type: Nurse Practitioner Type: Progress Notes Filed: 06/14/2018 9:34 AM Note Text: SUBJECTIVE: [facility] for a followup appointment for low back post injection. Since the last visit, Cat Ahn states the pain has been improving. Current pain intensity is 0 on a scale of 0-10. Pain located in Back area and does not radiate. Pain described as N/A The patient Denies weakness, numbness, tingling, morning stiffness, leg pain and leg weakness. Symptoms interfere with nothing. Pain is exacerbated by nothing. Pain is mitigated by nothing. The patient is overall improved with the injections by 99%. REVIEW OF SYSTEMS: Constitutional: (-) Fever (-) Night Sweats (-) Weight Gain (-) Weight Loss (-) Fatigue Cardiovascular: (-) Chest Pain (-) Palpitations (-) Lightheadedness (-) Swelling of Ankles (+) Hx Heart Surgery Respiratory: (-) Shortness of Breath (-) Cough (-) Wheezing (+) Snoring Gastrointestinal: (-) Incontinence (-) Abdominal Pain (-) Diarrhea (-) Constipation (-) Nausea/Vomiting (+) Heart Burn Endocrine: (+) Thyroid Disorder (-) Diabetes Hematologic: (-) Prolonged Bleeding (-) Easy Bruising Genitourinary: (-) Incontinence (-) Frequency (-) Urinary Urgency Skin: (-) Rashes (-) Itching (-) Other Lesions Neurologic: (-) Headache (-) Double Vision (-) Confusion (-) Paralysis Psychiatric: (-) Depression (-) Anxiety (-) Delusions (-) Hallucinations (-) Personal History of Alcohol or Substance Abuse (+) Family History of Alcohol or Substance Abuse OBJECTIVE: Pulse 93 Ht 5' 7.283 (1.71m) Wt 161 lb (73.0kg) SpO2 96% BMI 25.00 kg/(m2). PHYSICAL EXAMINATION: General appearance: Well appearing, in no acute distress, alert Skin: Skin color, texture, turgor normal, no rashes or lesions Neck: No pain to palpation over the cervical paraspinous muscles. No pain with neck flexion, extension, or lateral flexion Cardiovascular: Regular rate Lungs: Normal respiratory rate and rhythm Abdomen: Abdomen soft and non-tender. Back: Intact range of motion with pain reproduction. Facet:positive facet loading Spine: Reports Tenderness on palpation: Lumbar/Pelvic axial Extremities: No deformities, edema, or skin discoloration. Good capillary refill. Musculoskeletal: Joint pain denies Neuro: No loss of sensation is noted. Station and Gait: Normal stance, normal gait. Motor: Exhibits full strength in all four extremities. Trigger points: none. ASSESSMENT: Assessment : Patient reports lower back pain, denies radicular symptoms He had a bilateral L4, 5, S1 facet injections on ? and reports 99% improvement He takes baclofen and [place] when necessary Encounter Diagnosis ICD-10-CM 1. Lumbar disc disease with radiculopathy M51.16 2. Lumbar facet arthropathy M47.816 3. Degeneration of lumbar or lumbosacral intervertebral disc M51.37 4. Displacement of lumbar intervertebral disc without myelopathy M51.26 PDMP website checked and validated. All prescriptions have been APPROPRIATELY filled. No suspicious activity was identified. 06/14/2018 by Mahogany Abreu Ma Narcotic Agreement reviewed and signed?: N/A on June 14, 2018 The pain panel was N/A PLAN: Injection history was reviewed. Medication use and compliance were reviewed. 1. Continue medication management through the Pain Management Center 2. No refills needed for the baclofen Signed Prescriptions Disp Refills HYDROcodone-acetaminophen (NORCO) 5-325 mg per tablet 12 tablet 0 Sig: Take 1 tablet by mouth every 6 hours as needed for up to 3 days. MIMA Class: C-II JOLIE: No 3. Interventional procedure options discussed. None at this time 4. Encouraged regular home exercise program. 5) F/U in 6 months This note was partially generated using [email or web address] voice recognition system. The above plan and management options were discussed at length with patient. Patient is in agreement with the above and verbalized understanding. Rani Mattson APRN, DIRECTOR OF SAFETY AND SECURITY June 14, 2018 THYROID Observed: 06/09/2018 Status: F Source: [place] 10:34 AM [facility] REPOSITORY [facility] Imaging Services [address] [place] [address] Thyroid MR#: [id number] Acct: [id number] Name: Cat AHN Rep #: [id number] : 1945 M 73 From: José Mendez MD PCP: Butch Pulido III, MD Status: REG CLI Study: Thyroid Date of Exam: 06/09/18 Exam# [id number] Ordering Dr: Juan Miguel Pulido MD STUDY: THYROID ULTRASOUND REASON FOR EXAM: Male, 73 years old. Nodules TECHNIQUE: Ultrasound evaluation of the thyroid was performed with real-time and static xavier-scale imaging. COMPARISON: None. FINDINGS: RIGHT LOBE: The right lobe of the thyroid gland measures 4.1 x 1.7 x 1.5 cm. There is a homogeneous echotexture. There is a solid hypoechoic 1.5 x 0.7 x 0.8 cm nodule LEFT LOBE: The left lobe of the thyroid gland measures 4.3 x 2.0 x 2.2 cm. There is a homogeneous echotexture. There are multiple hypoechoic nodules, pick and shovel worker notes at least 5 measuring between 0.5 and 1.8 cm. ISTHMUS: The isthmus measures 2 mm. The regional lymph nodes are normal. US/Thyroid IMPRESSION: Normal sized homogeneous thyroid gland with multiple bilateral solid nodules more numerous in the left lobe than the right. Findings suggest goiter. However, sonography cannot distinguish between benign and aggressive nodules and further evaluation with thyroid uptake study is recommended to assess uptake characteristics. If there are suspicious uptake characteristics, biopsy would be recommended. If not a six-month follow-up would be recommended to assure stability Electronically Signed: Pierre Mendez MD at 10:23 EST , Service support , CC: Butch Pulido III, MD; Juan Miguel Pulido MD Brand Marketing Specialist: Signed OPERATIVE REPORT - Observed: 06/08/2018 Status: F Source: [place] ENDOSCOPY 7:00 AM [facility] REPOSITORY [facility] Medical Records Department [address] [place] [address] Operative Report - Endoscopy MR#: [id number] Acct: [id number] Name: Cat AHN Rep #: [id number] : 1945 73 From: Juan Miguel Pulido MD PCP: Butch Pulido III, MD Status: REG [facility] Patient Name: Cat Ahn Procedure Date: 06/08/2018 6:08 AM Date of : 1945 Age: 73 Procedure: Colonoscopy Indications: Family history of colon cancer in a first-degree relative Providers: Juan Miguel Pulido MD Referring MD: Juan Miguel Pulido MD Medicines: See the Anesthesia note for documentation of the administered medications Patient Profile: Last Colonoscopy: February 2013. Complications: No immediate complications. Procedure: Pre-Anesthesia Assessment: - Prior to the procedure, a History and Physical was performed, and patient medications and allergies were reviewed. The patient's tolerance of previous anesthesia was also reviewed. The risks and benefits of the procedure and the sedation options and risks were discussed with the patient. All questions were answered, and informed consent was obtained. Prior Anticoagulants: The patient has taken no previous anticoagulant or antiplatelet agents. ASA Grade Assessment: II - A patient with mild systemic disease. After reviewing the risks and benefits, the patient was deemed in satisfactory condition to undergo the procedure. After I obtained informed consent, the scope was passed under direct vision. Throughout the procedure, the patient's blood pressure, pulse, and oxygen saturations were monitored continuously. The Colonoscope was introduced through the anus and advanced to the cecum, identified by appendiceal orifice and ileocecal valve. The colonoscopy was performed without difficulty. The patient tolerated the procedure well. The quality of the bowel preparation was good. The ileocecal valve and the appendiceal orifice were photographed. Scope In: 6:40:54 AM Scope Withdrawal Time 0 hours 8 minutes 34 seconds Scope Out: 6:53:36 AM Total Procedure Duration Time 0 hours 12 minutes 42 seconds Findings: Hemorrhoids were found on perianal exam. Prostate normal Multiple diverticula were found in the sigmoid colon and descending colon. A 7 mm polyp was found in the cecum. The polyp was sessile. The polyp was removed with a cold snare. Resection and retrieval were complete. Impression: - Hemorrhoids found on perianal exam. - Diverticulosis in the sigmoid colon and in the descending colon. - One 7 mm polyp in the cecum, removed with a cold snare. Resected and retrieved. Recommendation: - Telephone my office for pathology results in 1 week. - Resume previous diet. - Continue present medications. - Repeat colonoscopy in 5 years for surveillance. Procedure Code(s): --- Professional --- 62445, Colonoscopy, flexible; with removal of tumor(s), polyp(s), or other lesion(s) by snare technique Diagnosis Code(s): --- Professional --- K64.9, Unspecified hemorrhoids D12.0, Benign neoplasm of cecum Z80.0, Family history of malignant neoplasm of digestive organs K57.30, Diverticulosis of large intestine without perforation or abscess without bleeding CPT copyright 2017 [employer]. All rights reserved. The codes documented in this report are preliminary and upon senior maintenance mechanic review may be revised to meet current compliance requirements. Juan Miguel Pulido MD 06/08/2018 6:59:37 AM This report has been signed electronically. Number of Addenda: 0 Note Initiated On: 06/08/2018 6:08 AM 06/08/1859 Date Juan Miguel Pulido MD Cosigner Signature: Date (if indicated) CC: Butch Pulido III, MD; Juan Miguel Pulido MD Date Dictated: 06/08/18607 Date Transcribed: Brand Marketing Specialist: KAMINI Signed COLON BIOPSY (CHOOSE Observed: 06/08/2018 Status: F Source: [place] SITE) 12:00 AM [facility] REPOSITORY Patient: Cat AHN : 1945 (73/M) Acct Num: [id number] Phys: Juan Miguel Pulido MD Unit Num: [id number] Loc: EN Specimen: [id number] Received: 06/08/18 - 1317 Spec Type: COLON BX TISSUES 1 TISSUES: Cecum, NOS GROSS DESCRIPTION Received in fixative is one container labeled with the patient's name and designated cecal polyp. The specimen consists of multiple irregular fragments of armijo soft tissue mixed with fecal material that in aggregate measure 1.5 x 0.2 x 0.1 cm. The specimen is totally submitted in one cassette. / Zia 06/08/18 TC:1 CPT: 42601 HEADER OPERATION: Colonoscopy (MAC) PRE-OP DIAGNOSIS: Family history of colon cancer TISSUE SUBMITTED: Cecal polyp MICROSCOPIC DESCRIPTION Slides are reviewed. MICROSCOPIC DIAGNOSIS Cecal polyp, biopsy: Fragments of tubular adenoma. Fragments of fecal material. Zia 06/09/18 Signed Scott Sutton 06/09/18 <signature on file> Performed By: #### PCOLBX #### [facility] [address] [place], [address] SURGERY VISIT REPORT Observed: 06/04/2018 Status: F Source: [place] 4:05 PM [facility] REPOSITORY [facility] [address] [place] [address] OFFICE VISIT Date of Service: 06/04/18 MR#: [id number] Acct: [id number] Name: Cat AHN Rep #: [id number] : 1945 Provider: Juan Miguel Pulido MD Age/Sex: 73/M Location: [facility] Status: Signed Intake Vital Signs06/04/18 Height 5 ft 9.5 in 06/04/18 Weight: 157 lb 1 oz 06/04/18 Body Mass Index (BMI) 22.8 06/04/18 Blood Pressure 174/74 H Intake Visit Reasons: C-SCOPE ADEEL PER DR BELL Chief Complaint: discuss colonoscopy, fam hx colon cancer Planting Material Unloader Required: No Is patient in pain?: No Allergies levofloxacin [From Levaquin] Adverse Reaction (Verified 06/04/18 15:16) Unknown Medications Cholecalciferol (Vitamin D3) [Vitamin D3] 1,000 unit PO DAILY 06/08/13 [History Confirmed 06/04/18] Omeprazole [Prilosec] 20 mg PO DAILY 06/08/13 [History Confirmed 06/04/18] Flecainide [Tambocor] 100 mg PO BID #60 tab 06/10/13 [Rx Confirmed 06/04/18] atorvastatin 10 mg tablet 10 mg PO DAILY 06/04/18 [History Confirmed 06/04/18] metoprolol succinate ER 25 mg tablet,extended release 24 hr 25 mg PO DAILY 06/04/18 [History Confirmed 06/04/18] pramipexole 0.75 mg tablet 0.75 mg PO BID PRN tab 06/04/18 [History Confirmed 06/04/18] tamsulosin 0.4 mg capsule 0.4 mg PO DAILY 06/04/18 [History Confirmed 06/04/18] [facility] Medical History Multiple thyroid nodules (Acute) Family history of colon cancer in father (Acute) History of sleep apnea (Chronic) History of mitral valve prolapse (Chronic) History of hyperlipidemia (Chronic) History of atrial fibrillation (Chronic) BPH (benign prostatic hyperplasia) (Acute) Depression (Acute) GERD (gastroesophageal reflux disease) (Acute) PVD (peripheral vascular disease) (Acute) Renal calculi (Acute) Spastic colon (Acute) Thyroid nodule (Acute) Ventricular tachycardia (Acute) HTN (hypertension) (Chronic) Surgical History History of arthroscopy of shoulder (Acute) History of colonoscopy (Acute) History of esophagogastroduodenoscopy (EGD) (Acute) History of heart surgery (Acute) History of hemorrhoidectomy (Acute) History of mitral valve replacement (Acute) History of rotator cuff surgery (Acute) History of spinal surgery (Acute) History of total knee replacement (Acute) S/P TURP (status post transurethral resection of prostate) (Acute) Status post placement of cardiac pacemaker (Acute) Family History Father Colon cancer Sister Cancer lung Social History Smoking Status: Former smoker HPI HPI HPI: H CARLOS, is a 73 M who presents to the office today for surgical planning for a colonoscopy. He also has multi nodular thyroid disease. 73-year-old gentleman. He lost his to ovarian cancer this past year. He has had a very difficult time. His primary care physician is Dr. Butch Pulido III and his freight sales broker is Dr. Toan Bell. The patient has had a mitral valve repair. He has paroxysmal atrial fibrillation. He is supposed to be on anticoagulation for his A. fib. He has made it very clearly known today that he is not interested in resuming anticoagulation. His most recent colonoscopy was February 2013. The patient has a family history with a father who had colon cancer. It is additionally of note that October 02, 2016 he had a thyroid ultrasound performed. At that time the largest nodule in the left was 2.4 cm with an additional 1.7 and an additional 1.7 cm nodule. On the right there is a small 0.7 cm nodule. This was unchanged from previous exams. It is of note that previously 2012 I performed an ultrasound- guided fine-needle aspiration of the left thyroid consistent with benign disease. He has had some mild intermittent left lower quadrant spasm type pain. No bright red blood per rectum or melena. He has had a modified barium swallow study performed at the [facility] October 23, 2016 which was essentially normal. It is of additional note that he has a left chest pacemaker in place ROS General General: Yes weight change and fatigue; no appetite, colon cancer, breast cancer or weakness HEENT HEENT: No difficulty swallowing, eye injury, eye surgery, swollen glands or hoarseness Endo Endocrine: Yes thyroid disease; no diabetes mellitus, thyroid cancer, Hair loss, heat intolerance or cold intolerance Musc Musculoskeletal: Yes arthritis; no back problems, rheumatoid arthritis, gout or joint pain Cardio Cardiovascular: Yes pacemaker, heart disease and high blood pressure; no murmur, atrial fibrillation, heart attack, heart stent, palpitations, shortness of breat with exertion or chest pain Resp Respiratory: No shortness of breath, No sleep apnea, No cough, No COPD, No asthma, No emphysema, No wheezing Gastro Gastrointestinal: No abdominal pain, No nausea or vomiting, No diarrhea, No constipation, No blood in stool, Yes acid reflux, Yes hemorrhoids, No ulcers, No gallbladder problem, No black,tarry stools Ken Hematologic: No blood thinners, No blood disorders, No bleeding, No anemia, No blood clots Neuro Neurologic: No weakness Exam Const General: cooperative, healthy appearing, comfortable Nutritional Appearance: average body habitus Orientation: alert, awake [facility] Head: normal to inspection Neck Other: Kyphosis noted. Anterior neck is nontender. Thyroid is actually difficult to feel Resp Effort AND Inspection: normal respiratory effort Cardio Rate: regular rate Heart Sounds: no murmurs GI Inspection: normal to inspection Palpation: soft, no hepatosplenomegaly Auscultation: normal bowel sounds Extrem General: no clubbing, cyanosis or edema Psych Other: Speech and thoughts consistent with grieving for his Assessment AND Plan Problems 1. Family history of colon cancer in father Z80.0 2. Multiple thyroid nodules E04.2 Plan I have recommended the patient an updated thyroid ultrasound. He has had an opportunity to ask and have questions answered and is comfortable with this. I am recommending the patient a colonoscopy with possible biopsy or polypectomy is indicated. He has had an opportunity to ask and have questions answered. We will provided MiraLAX split prep. We will utilize monitored anesthesia care because of the patient's history of mitral valve repair and pacemaker placement. He is not currently on anticoagulation and is noted above he declines resuming it. CC: Dr. Butch Pulido III and Dr. Toan Pulido M.D., F.A.C.S. Orders Orders: Coding Level of Care Code Off vis,est,level 3 Diagnoses Family history of colon cancer in father Z80.0 Multiple thyroid nodules E04.2 06/04/18 1605 <Electronically signed by Juna Miguel Pulido MD> Date Juan Miguel Pulido MD Cosigner Signature: Date (if applicable) CC: Butch Pulido III, MD; Bharat Bell MD PROGRESS Observed: 06/01/2018 Status: COMPLETED Source: [place] 5:00 PM [facility] RE[facility] HNO ID: [id number] Author: Bharat Bell Service: (none) Author Type: Physician Type: Progress Notes Filed: 06/01/2018 5:08 PM Note Text: PERTINENT CARDIAC HISTORY Severe mitral regurgitation due to mitral valve prolapse corrected by mitral valve repair 08/07/12 (Dr. Tate) Pt had MAZE and Left atrial appendage ligation at time of surgery Non-cardiac chest pain (normal coronaries on cath 08/06/12) Pre and Post op atrial fibrillation. Recurrent PAF with DCC 11/09/12 SSS - PPM 2016 HL ADHERENCE TO GUIDELINES LORI-I or ARB for HF with prior LVEF<40 (NQF 0081) - N/A ASA or Plavix for ASHD (NQF 0067) - N/A Beta ishmael for ASHD with prior MN or prior LVEF<40 (NQF 0070) - N/A Beta ishmael for HF with prior LVEF<40 (NQF 0083) - N/A LORI-I or ARB for ASHD with DM or prior LVEF<40 (NQF 0066) - N/A Statin therapy for ASHD or FHL or DM - met BMI documented and plan if >25 (NQF 0421) - lifestyle recommendation form Tobacco use screening and referral (NQ 0028) - lifestyle recommendation form Recommendation for whole food, plant based diet - lifestyle recommendation form CLINICAL IMPRESSION/PLAN: Cat Ahn is clinically stable. There is no evidence of decompensated ischemia, arrhythmia or heart failure. He is well compensated. There is no contraindication to colonoscopy as planned. No further studies are recommended. Risk of perioperative cardiac complications is low. No guarantees are made. We will have him get an extra device check so we can see if he has been having atrial fibrillation. I will start him on anti-coagulation following his colonoscopy, if there is evidence for atrial fibrillation. There is no recent evidence of ventricular ectopy. This appears to be well suppressed with flecainide. His current medication will be continued. I will see him in 4 months, at which time we will do an echocardiogram for follow-up of his valvular heart disease. Written and verbal health teaching given to patient, patient verbalizes understanding and agrees with treatment plan. DIAGNOSIS FOR VISIT: Preoperative risk assessment Mitral valve repair HISTORY OF PRESENT ILLNESS Cat Ahn returns for preoperative cardiac risk assessment. He has multiple cardiac issues, as noted above. He was previously followed by Dr. Sequeira. He has been caring for his , who recently . He has been very active. He's had no pacemaker check, since his device was implanted 2 years ago. He was lost to follow-up at that time. His phone checks have shown no atrial or ventricular tachycardia events. He Reports Stable Exercise Tolerance. He's Had No Chest Discomfort. He Denies Orthopnea, Edema, Syncope, Palpitations, TIAs, Amaurosis and Claudication. ALLERGIES: ALLERGIES No Known Allergies CURRENT OUTPATIENT MEDICATIONS: atorvastatin (LIPITOR) 10 mg tablet Take 1 tablet by mouth once daily. For cholesterol. metoprolol succinate ER (TOPROL XL) 25 mg 24 hr tablet Take 1 tablet by mouth once daily. flecainide (TAMBOCOR) 100 mg tablet Take 1 tablet by mouth twice daily. tamsulosin ER (FLOMAX) 0.4 mg cap Take 1 capsule by mouth once daily. omeprazole (PRILOSEC) 20 mg capsule TAKE 1 CAPSULE EVERY DAY ON AN EMPTY STOMACH zolpidem (AMBIEN) 5 mg tablet Take 1 tablet by mouth at bedtime as needed for Sedation for up to 30 days. fluticasone (FLONASE) 50 mcg/actuation nasal spray Use 2 Sprays in each nostril once daily. Rinse mouth after use. Pramipexole (MIRAPEX) 0.75 mg tablet Take 0.75 mg by mouth twice daily as needed. Cholecalciferol, Vitamin D3, 1,000 unit cap Take 1 capsule by mouth once daily. PAST MEDICAL HISTORY Diagnosis Date - A-fib ([facility]) - Arrhythmia - Asthma - Cardiac syncope 02/05/2016 - Chronic obstructive pulmonary disease (COPD) ([facility]) - Congestive heart failure ([facility]) - Degenerative cervical disc 02/05/2011 - Diverticulosis of colon (without mention of hemorrhage) Diverticulosis - Family history of other specified malignant neoplasm FX HX COLON CA - GERD (gastroesophageal reflux disease) 06/27/2011 - Hypertension 08/09/2012 - Hypertrophy of prostate without urinary obstruction and other lower urinary tract symptoms (LUTS) - Inguinal hernia without mention of obstruction or gangrene, bilateral, (not specified as recurrent) - Lumbar disc disease with radiculopathy 02/10/2014 - Mental disorder - Moderate episode of recurrent major depressive disorder ([facility]) 03/24/2017 - Osteoporosis 07/15/2011 - Other and unspecified hyperlipidemia Hyperlipidemia - Other congenital hamartoses, 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 - Peripheral vascular disease ([facility]) - Renal stone 09/05/2011 - Restless leg syndrome 07/30/2010 - Restless legs syndrome (RLS) 02/22/2015 - Tachy-bora syndrome ([facility]) 11/19/2015 - Thyroid disorder - Unspecified functional disorder of intestine SPASTIC COLITIS - Unspecified hemorrhoids without mention of complication Hemorrhoids - Ventricular tachycardia ([facility]) 06/28/13 flecainide - Vitamin D deficiency 07/17/2011 PAST SURGICAL HISTORY Procedure Laterality Date - IRAIS REDMAN IGE - ARTHROSCOPIC RELEASE SHOULDER JOINT 09/05 adhesive capsulitis L shoulder - COLONOSCOP W/ OR W/O BRSH SPEC 07/05/2001 - COLONOSCOP W/ OR W/O BRSH SPEC 12/08/2006 Colonoscopy - COLONOSCOP W/ OR W/O BRSH SPEC 03/21/13 Colonoscopy - EGD W/O OR W/BRUSH/WASH - EGD W/O OR W/BRUSH/WASH 03/21/13 EGD - FNA WITH IMAGING 7/17/13 U/S FNA left thyroid x 2 - HEART SURGERY HX Mitral valve repair- Jul 2012 - INCISE EXTERNAL HEMORRHOID 04/22/06 - INCISE EXTERNAL HEMORRHOID 11/30/13 Exc. 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 - MAZE PROCEDURE 2012 - PAST SURGICAL HISTORY OF 05/2011 C5-6-7 diskectomy, fusion - REPAIR ING HERNIA,5+Y/O,REDUCIBL LAPAROSCOPIC, BILAT - REPAIR ROTATOR CUFF,ACUTE 08/2005 R Rotator cuff repair - REPLACEMENT OF MITRAL VALVE 2012 - TOTAL KNEE REPLACEMENT Knee replacement, total - TRANSURETHRAL ELEC-SURG PROSTATECTOM 07/08 FAMILY HISTORY Problem Relation Age of Onset - Colon Cancer Father - Cancer Sister lung cancer - other (Parkinson's disease) Sister Social History Marital status: Spouse name: Betsy Years of education: Number of children: 2 Occupational History Occupation Employer [employer] Social History Main Topics Smoking status: Former Smoker Packs/day: 0.10 Years: 2.00 Types: Cigarettes Smokeless tobacco: Never Used Comment: 1974 Alcohol use: Yes Comment: occasionally Drug use: No Sexual activity: Yes Partners with: Female REVIEW OF SYSTEMS: General: No chills, fever, weight loss, night sweats. Respiratory: No productive cough. Cardiac: As noted above. GI: No melena. : No dysuria. Musculoskeletal: No myalgias. PHYSICAL EXAMINATION: S/he is alert and in no distress. VITAL SIGNS: BP 126/70 Pulse 80 Resp 17 Wt 157 lb (71.2kg) SHEENT: Skin is warm and dry. No xanthelasmas appreciated. Pharynx is benign. There is no oral cyanosis. Neck: supple. No adenopathy or thyroid enlargement. Chest: Clear to auscultation. Trachea is midline. Air entry is equal. There is no chest wall tenderness. Cardiac: Regular rhythm. S1 and S2 are normal. PMI is nondisplaced. There is a soft systolic ejection murmur without radiation. No mitral insufficiency is heard.. Carotids are brisk without bruits. JVP is less than 10 cm. Abdomen: Soft and nontender. There are no pulsatile masses or bruits. No liver enlargement. Bowel sounds are active. Extremities: No edema. Pulses are intact and symmetrical. No clubbing or cyanosis. No femoral bruits. Neurologic: Grossly normal motor and sensory. S/he is alert and oriented x4. EKG shows a supraventricular rhythm, possibly atrial fibrillation. There is significant baseline artifact despite multiple attempts. The rhythm is slightly irregular. No convincing atrial pacing artifact is noted. Most recent transtelephonic pacemaker check was reviewed. This showed no evidence of atrial or ventricular tachycardia events. Extensive previous record was reviewed. His most recent echocardiogram was 3 years ago. Recent labs were reviewed. CBC was normal. Renal function is normal. LDL was 80. Electronically Signed: Bharat Bell MD June 01, 2018 5:00 PM CC:Butch Pulido III MD EKG1 Observed: 06/01/2018 Status: F Source: [place] 4:20 PM [facility] REPOSIT[facility] NAME : Cat AHN PID : [id number] : 1945 Gender : Male Race : ORD : Procedure Date : Jun 01 2018 16:20:35 Edit Date : Jun 03 2018 08:53:56 Diagnosis:ELECTRONIC ATRIAL PACEMAKER WITH 1ST DEGREE AV BLOCK INCOMPLETE LEFT BUNDLE BRANCH BLOCK NON-SPECIFIC ST AND T WAVE CHANGES BORDERLINE ECG PPM IS NEW Confirmed by BHARAT BELL MD ([id number]) on 06/03/2018 8:53:51 AM Ventricular Rate : 81 BPM Atrial Rate : 96 BPM QRS Duration : 116 ms Q-T Interval : 404 ms QTC Calculation(Bezet) : 469 ms R [place] : -9 degrees T [place] : 3 degrees Test Reason : Location : 136 : [place] Overread By : BHARAT BELL MD Edited By : BHARAT BELL MD Referred By : BUTCH PULIDO III Acquired by : LUISA REYNOLDS Observed: 06/01/2018 Status: COMPLETED Source: [place] 3:15 PM [facility] RE[facility] Office Visit ([facility]) Cat AHN ([id number]) 1945 M NFR Date Time Provider Department 06/01/18 3:15 PM BHARAT BELL During your visit today, we recorded the following information about you: Pulse Respiration Blood pressure Weight 80/minute 17/minute 126/70 71.2 kg Bharat Bell MD 06/01/2018 5:08 PM Signed PERTINENT CARDIAC HISTORY Severe mitral regurgitation due to mitral valve prolapse corrected by mitral valve repair 08/07/12 (Dr. Tate) Pt had MAZE and Left atrial appendage ligation at time of surgery Non-cardiac chest pain (normal coronaries on cath 08/06/12) Pre and Post op atrial fibrillation. Recurrent PAF with DCC 11/09/12 SSS - PPM 2015 HL ADHERENCE TO GUIDELINES LORI-I or ARB for HF with prior LVEF<40 (NQF 0081) - N/A ASA or Plavix for ASHD (NQF 0067) - N/A Beta ishmael for ASHD with prior MN or prior LVEF<40 (NQF 0070) - N/A Beta ishmael for HF with prior LVEF<40 (NQF 0083) - N/A LORI-I or ARB for ASHD with DM or prior LVEF<40 (NQF 0066) - N/A Statin therapy for ASHD or FHL or DM - met BMI documented and plan if >25 (NQF 0421) - lifestyle recommendation form Tobacco use screening and referral (NQF 0028) - lifestyle recommendation form Recommendation for whole food, plant based diet - lifestyle recommendation form CLINICAL IMPRESSION/PLAN: Cat Ahn is clinically stable. There is no evidence of decompensated ischemia, arrhythmia or heart failure. He is well compensated. There is no contraindication to colonoscopy as planned. No further studies are recommended. Risk of perioperative cardiac complications is low. No guarantees are made. We will have him get an extra device check so we can see if he has been having atrial fibrillation. I will start him on anti-coagulation following his colonoscopy, if there is evidence for atrial fibrillation. There is no recent evidence of ventricular ectopy. This appears to be well suppressed with flecainide. His current medication will be continued. I will see him in 4 months, at which time we will do an echocardiogram for follow-up of his valvular heart disease. Written and verbal health teaching given to patient, patient verbalizes understanding and agrees with treatment plan. DIAGNOSIS FOR VISIT: Preoperative risk assessment Mitral valve repair HISTORY OF PRESENT ILLNESS Cat Ahn returns for preoperative cardiac risk assessment. He has multiple cardiac issues, as noted above. He was previously followed by Dr. Sequeira. He has been caring for his , who recently . He has been very active. He's had no pacemaker check, since his device was implanted 2 years ago. He was lost to follow-up at that time. His phone checks have shown no atrial or ventricular tachycardia events. He Reports Stable Exercise Tolerance. He's Had No Chest Discomfort. He Denies Orthopnea, Edema, Syncope, Palpitations, TIAs, Amaurosis and Claudication. ALLERGIES: ALLERGIES No Known Allergies CURRENT OUTPATIENT MEDICATIONS: atorvastatin (LIPITOR) 10 mg tablet Take 1 tablet by mouth once daily. For cholesterol. metoprolol succinate ER (TOPROL XL) 25 mg 24 hr tablet Take 1 tablet by mouth once daily. flecainide (TAMBOCOR) 100 mg tablet Take 1 tablet by mouth twice daily. tamsulosin ER (FLOMAX) 0.4 mg cap Take 1 capsule by mouth once daily. omeprazole (PRILOSEC) 20 mg capsule TAKE 1 CAPSULE EVERY DAY ON AN EMPTY STOMACH zolpidem (AMBIEN) 5 mg tablet Take 1 tablet by mouth at bedtime as needed for Sedation for up to 30 days. fluticasone (FLONASE) 50 mcg/actuation nasal spray Use 2 Sprays in each nostril once daily. Rinse mouth after use. Pramipexole (MIRAPEX) 0.75 mg tablet Take 0.75 mg by mouth twice daily as needed. Cholecalciferol, Vitamin D3, 1,000 unit cap Take 1 capsule by mouth once daily. PAST MEDICAL HISTORY Diagnosis Date - A-fib (HCC) - Arrhythmia - Asthma - Cardiac syncope 02/05/2016 - Chronic obstructive pulmonary disease (COPD) ([facility]) - Congestive heart failure ([facility]CC) - Degenerative cervical disc 02/05/2011 - Diverticulosis of colon (without mention of hemorrhage) Diverticulosis - Family history of other specified malignant neoplasm FX HX COLON CA - GERD (gastroesophageal reflux disease) 06/27/2011 - Hypertension 08/09/2012 - Hypertrophy of prostate without urinary obstruction and other lower urinary tract symptoms (LUTS) - Inguinal hernia without mention of obstruction or gangrene, bilateral, (not specified as recurrent) - Lumbar disc disease with radiculopathy 02/10/2014 - Mental disorder - Moderate episode of recurrent major depressive disorder (HCC) 03/24/2017 - Osteoporosis 07/15/2011 - Other and unspecified hyperlipidemia Hyperlipidemia - Other congenital hamartoses, 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 - Peripheral vascular disease (HCC) - Renal stone 09/05/2011 - Restless leg syndrome 07/30/2010 - Restless legs syndrome (RLS) 02/22/2015 - Tachy-bora syndrome (HCC) 11/19/2015 - Thyroid disorder - Unspecified functional disorder of intestine SPASTIC COLITIS - Unspecified hemorrhoids without mention of complication Hemorrhoids - Ventricular tachycardia (HCC) 06/28/13 flecainide - Vitamin D deficiency 07/17/2011 PAST SURGICAL HISTORY Procedure Laterality Date - IRAIS REDMAN IGE - ARTHROSCOPIC RELEASE SHOULDER JOINT 09/05 adhesive capsulitis L shoulder - COLONOSCOP W/ OR W/O BRSH SPEC 07/05/2001 - COLONOSCOP W/ OR W/O BRSH SPEC 12/08/2006 Colonoscopy - COLONOSCOP W/ OR W/O BRSH SPEC 03/21/13 Colonoscopy - EGD W/O OR W/BRUSH/WASH - EGD W/O OR W/BRUSH/WASH 03/21/13 EGD - FNA WITH IMAGING 01/12/13 U/S FNA left thyroid x 2 - HEART SURGERY HX Mitral valve repair- Jul 2012 - INCISE EXTERNAL HEMORRHOID 04/22/06 - INCISE EXTERNAL HEMORRHOID 11/30/13 Exc. 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 - MAZE PROCEDURE 2012 - PAST SURGICAL HISTORY OF 05/2011 C5-6-7 diskectomy, fusion - REPAIR ING HERNIA,5+Y/O,REDUCIBL LAPAROSCOPIC, BILAT - REPAIR ROTATOR CUFF,ACUTE 08/2005 R Rotator cuff repair - REPLACEMENT OF MITRAL VALVE 2012 - TOTAL KNEE REPLACEMENT Knee replacement, total - TRANSURETHRAL ELEC-SURG PROSTATECTOM 07/08 FAMILY HISTORY Problem Relation Age of Onset - Colon Cancer Father - Cancer Sister lung cancer - other (Parkinson's disease) Sister Social History Marital status: Spouse name: Betsy Years of education: Number of children: 2 Occupational History Occupation Employer Comment [employer] Social History Main Topics Smoking status: Former Smoker Packs/day: 0.10 Years: 2.00 Types: Cigarettes Smokeless tobacco: Never Used Comment: 1974 Alcohol use: Yes Comment: occasionally Drug use: No Sexual activity: Yes Partners with: Female REVIEW OF SYSTEMS: General: No chills, fever, weight loss, night sweats. Respiratory: No productive cough. Cardiac: As noted above. GI: No melena. : No dysuria. Musculoskeletal: No myalgias. PHYSICAL EXAMINATION: S/he is alert and in no distress. VITAL SIGNS: BP 126/70 Pulse 80 Resp 17 Wt 157 lb (71.2kg) SHEENT: Skin is warm and dry. No xanthelasmas appreciated. Pharynx is benign. There is no oral cyanosis. Neck: supple. No adenopathy or thyroid enlargement. Chest: Clear to auscultation. Trachea is midline. Air entry is equal. There is no chest wall tenderness. Cardiac: Regular rhythm. S1 and S2 are normal. PMI is nondisplaced. There is a soft systolic ejection murmur without radiation. No mitral insufficiency is heard.. Carotids are brisk without bruits. JVP is less than 10 cm. Abdomen: Soft and nontender. There are no pulsatile masses or bruits. No liver enlargement. Bowel sounds are active. Extremities: No edema. Pulses are intact and symmetrical. No clubbing or cyanosis. No femoral bruits. Neurologic: Grossly normal motor and sensory. S/he is alert and oriented x4. EKG shows a supraventricular rhythm, possibly atrial fibrillation. There is significant baseline artifact despite multiple attempts. The rhythm is slightly irregular. No convincing atrial pacing artifact is noted. Most recent transtelephonic pacemaker check was reviewed. This showed no evidence of atrial or ventricular tachycardia events. Extensive previous record was reviewed. His most recent echocardiogram was 3 years ago. Recent labs were reviewed. CBC was normal. Renal function is normal. LDL was 80. Electronically Signed: Bharat Bell MD June 01, 2018 5:00 PM CC:SANIA Ramon MD, MD 06/01/2018 5:08 PM Signed LIFESTYLE CHANGE A healthy lifestyle is the most important component of your overall treatment plan. Please give serious thought to the following areas and commit to making [facility] changes. EAT A WHOLE FOOD, PLANT BASED DIET The nutrition your body gets is more important than the medicine you take. What matters most is the overall way you eat. We encourage you to minimize the use of animal products (which include dairy and all meats except fatty fish) and use whole, unprocessed plant foods to provide your protein, vitamins and other nutrients. We have a lot of information to share with you on this topic. This is not a diet. It is a way of life that you will keep with you. EXERCISE REGULARLY It is not important to spend hours in the gym, lifting weights and perspiring heavily. A total of 2-3 hours per week of aerobic (causing you to be moderately short of breath) exercise is sufficient to improve your health. Talk to us before you begin a new exercise program, if you have heart disease or experience shortness of breath or chest pain. REDUCE STRESS Chronic emotional and physical stress leads to disease. Ways of reducing stress include meditation, visualization, prayer, yoga and other forms of relaxation therapy. Consistency is the littlejohn. Find a technique that works for you and do it every day. CULTIVATE RELATIONSHIPS Loneliness and isolation have a major negative impact on health. Seek out others who can love, care for and nurture you. Avoid hurtful relationships. MAINTAIN IDEAL BODY WEIGHT The best way to do this is to do all the things above. Our bodies naturally find the right weight if we keep moving and feed ourselves the right food. If your BMI is greater than 25, we strongly recommend a referral to a weight management program. Please speak to us or your family physician about available programs. AVOID NICOTINE IN ALL FORMS This includes all tobacco products, whether chewed, smoked, vaped, or rubbed on the skin. Smoking cessation programs, which can make use of tobacco substitutes, medications to suppress cravings and behavior management, are available. Please contact your family physician about programs in your area. Neris Pate MA 06/02/2018 8:58 AM Signed Addended by: NERIS PATE MA on: 06/02/2018 08:58 AM Modules accepted: Orders Bharat Bell MD 06/03/2018 9:41 AM Signed Addended by: BHARAT BELL MD on: 06/03/2018 09:41 AM Modules accepted: Orders Referring Provider: BUTCH PULIDO III [[id number]] Allergies As of Date: 06/01/2018 (No Known Allergies) Date Reviewed: 06/01/2018 Reviewed by: Cherelle Daniel LPN - Fully Assessed Reason for Visit: Established Patient [175] Cmt: AF Primary Visit Diagnosis:Preop cardiovascular exam [Z01.810] Other Visit Diagnosis:S/P MVR (mitral valve replacement) [Z95.2] Order(s):COMPLETE ECG [] Order #: [id number]. #:[id number]--[id number]: 1 ECHO [[id number]] Order #: [id number]: 1 FUTURE ECG COMPLETE W INTERPRETATION [ECG01] Order #: [id number] FUTURE Prescriptions as of 06/01/2018 Sig: ATORVASTATIN 10 MG TABLET Take 1 tablet by mouth once d* METOPROLOL SUCCINATE ER 25 MG* Take 1 tablet by mouth once d* FLECAINIDE 100 MG TABLET Take 1 tablet by mouth twice * TAMSULOSIN 0.4 MG CAPSULE Take 1 capsule by mouth once * OMEPRAZOLE 20 MG CAPSULE,CHATA* TAKE 1 CAPSULE EVERY DAY ON A* ZOLPIDEM 5 MG TABLET Take 1 tablet by mouth at bed* FLUTICASONE 50 MCG/ACTUATION * Use 2 Sprays in each nostril * PRAMIPEXOLE 0.75 MG TABLET Take 0.75 mg by mouth twice d* CHOLECALCIFEROL (VITAMIN D3) * Take 1 capsule by mouth once * More... More... More... Problem List As Of Date 06/01/2018 Noted Resolved Unspecified functional disorder of intestine [K* 2018 More... FAMILY HX-MALIGNANCY NEC [Z80.8] More... Inguinal hernia without mention of obstruction * 06/06/2014 ESOPHAGEAL REFLUX [K21.9] INVALID FOR* ANXIETY STATE NOS [F41.1] INVALID FOR* Disorders of bursae and tendons in shoulder reg*INVALID FOR*07/10/2016 HEMORRHOIDS EXTERNAL THROMBOSED [K64.5] INVALID FOR*07/10/2016 MITRAL/AORTIC FAB INSUFF [I08.0] INVALID FOR*10/20/2007 BPH with obstruction/lower urinary tract sympto*INVALID FOR* HYPERTONICITY OF BLADDER [N31.8] INVALID FOR* Chest pain, unspecified [R07.9] INVALID FOR*07/10/2016 LUMB/LUMBOSAC DISC DEGEN [M51.37] INVALID FOR* Skin Cancer of Anterior Chest [C44.519] INVALID FOR* Restless leg syndrome [G25.81] INVALID FOR* Degenerative cervical disc [M50.30] INVALID FOR* GERD (gastroesophageal reflux disease) [K21.9] INVALID FOR* Osteoporosis [M81.0] INVALID FOR* Vitamin D deficiency [E55.9] INVALID FOR* Renal stone [N20.0] INVALID FOR* Erectile dysfunction [N52.9] INVALID FOR* Testalgia [N50.819] INVALID FOR*07/10/2016 Noncompliance [Z91.19] INVALID FOR*06/06/2014 Paroxysmal atrial fibrillation (HCC) [I48.0] INVALID FOR* More... Congestive heart failure (HCC) [I50.9] INVALID FOR*06/06/2014 More... 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 Mitral valve regurgitation [I34.0] INVALID FOR* More... Hyperlipidemia [E78.5] INVALID FOR* More... More... More... Mechanically assisted ventilation [Z99.11] INVALID FOR*08/07/2012 More... Stress hyperglycemia [R73.9] INVALID FOR*06/06/2014 More... Atelectasis [J98.11] INVALID FOR*06/06/2014 More... Hypotension, unspecified [I95.9] INVALID FOR*08/09/2012 More... Hypertension [I10] INVALID FOR* More... More... SUMMARY [V999.95] INVALID FOR* More... Leukocytosis [D72.829] INVALID FOR*2018 More... Multiple thyroid nodules [E04.2] INVALID FOR* History of atrial fibrillation [Z86.79] INVALID FOR* DDD (degenerative disc disease), cervical [M50.*INVALID FOR* S/P cervical spinal fusion [Z98.1] INVALID FOR* Cervical strain [S16.1XXA] INVALID FOR*2018 Myofascial pain [M79.18] INVALID FOR*2018 Nonsustained ventricular tachycardia (HCC) [I47*INVALID FOR*06/06/2014 Near syncope [R55] INVALID FOR*06/06/2014 S/P mitral valve repair [Z98.890] INVALID FOR* Ventricular tachycardia [I47.2] INVALID FOR* Lumbar disc disease with radiculopathy [M51.16] INVALID FOR*2018 Hip arthritis [M16.10] INVALID FOR*2018 Prostate cancer (HCC) [C61] INVALID FOR* Displacement of lumbar intervertebral disc with*INVALID FOR*2018 Elevated prostate specific antigen (PSA) [R97.2*INVALID FOR* Situational depression [F43.21] INVALID FOR*2018 Restless legs syndrome (RLS) [G25.81] INVALID FOR* IT band syndrome [M76.30] INVALID FOR*11/19/2015 Tachy-bora syndrome (HCC) [I49.5] INVALID FOR* History of lumbar surgery [Z98.890] INVALID FOR* Lumbar facet arthropathy (HCC) [M47.816] INVALID FOR* Trochanteric bursitis of left hip [M70.62] INVALID FOR*2018 Sinus node dysfunction (HCC) [I49.5] INVALID FOR* Cardiac syncope [R55] INVALID FOR* Impaired swallowing [R13.10] INVALID FOR* Moderate episode of recurrent major depressive *INVALID FOR* Pacemaker [Z95.0] INVALID FOR* Lumbar disc disease with radiculopathy [M51.16] INVALID FOR* Degeneration of lumbosacral intervertebral disc*INVALID FOR* More... Lumbar disc herniation with radiculopathy [M51.*INVALID FOR* More... Other instructions from your clinician: LIFESTYLE CHANGE A healthy lifestyle is the most important component of your overall treatment plan. 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 EAT A WHOLE FOOD, PLANT BASED DIET The nutrition your body gets is more important than the medicine you take. What matters most is the overall way you eat. We encourage you to minimize the use of animal products (which include dairy and all meats except fatty fish) and use whole, unprocessed plant foods to provide your protein, vitamins and other nutrients. We have a lot of information to share with you on this topic. This is not a diet. It is a way of life that you will keep with you. EXERCISE REGULARLY It is not important to spend hours in the gym, lifting weights and perspiring heavily. A total of 2-3 hours per week of aerobic (causing you to be moderately short of breath) exercise is sufficient to improve your health. Talk to us before you begin a new exercise program, if you have heart disease or experience shortness of breath or chest pain. REDUCE STRESS Chronic emotional and physical stress leads to disease. Ways of reducing stress include meditation, visualization, prayer, yoga and other forms of relaxation therapy. Consistency is the littlejohn. Find a technique that works for you and do it every day. CULTIVATE RELATIONSHIPS Loneliness and isolation have a major negative impact on health. Seek out others who can love, care for and nurture you. Avoid hurtful relationships. MAINTAIN IDEAL BODY WEIGHT The best way to do this is to do all the things above. Our bodies naturally find the right weight if we keep moving and feed ourselves the right food. If your BMI is greater than 25, we strongly recommend a referral to a weight management program. Please speak to us or your family physician about available programs. AVOID NICOTINE IN ALL FORMS This includes all tobacco products, whether chewed, smoked, vaped, or rubbed on the skin. Smoking cessation programs, which can make use of tobacco substitutes, medications to suppress cravings and behavior management, are available. Please contact your family physician about programs in your area. Follow-up and Disposition History Recorded Encounter Status:Closed by BHARAT BELL MD on 06/01/18 CNNURSE Observed: 06/01/2018 Status: COMPLETED Source: [place] 11:30 AM [facility] REPOSITORY Nurse Visit ([facility]) Cat AHN ([id number]) 1945 M NFR Date Time Provider Department 06/01/18 11:30 AM NURSE CARD ADMIN [facility] During your visit today, we recorded the following information about you: Sami Eng RN 06/03/2018 11:52 AM Signed Ekg completed per order. Pt tolerated procedure without distress. Sami Eng RN Referring Provider: BHARAT BELL [[id number]] Allergies As of Date: 06/01/2018 (No Known Allergies) Date Reviewed: 06/01/2018 Reviewed by: Cherelle Daniel LPN - Fully Assessed Reason for Visit: Nurse Visit [792] Visit Diagnoses:Preop cardiovascular exam [Z01.810] S/P MVR (mitral valve replacement) [Z95.2] Prescriptions as of 06/01/2018 Sig: ATORVASTATIN 10 MG TABLET Take 1 tablet by mouth once d* METOPROLOL SUCCINATE ER 25 MG* Take 1 tablet by mouth once d* FLECAINIDE 100 MG TABLET Take 1 tablet by mouth twice * TAMSULOSIN 0.4 MG CAPSULE Take 1 capsule by mouth once * OMEPRAZOLE 20 MG CAPSULE,CHATA* TAKE 1 CAPSULE EVERY DAY ON A* FLUTICASONE 50 MCG/ACTUATION * Use 2 Sprays in each nostril * PRAMIPEXOLE 0.75 MG TABLET Take 0.75 mg by mouth twice d* CHOLECALCIFEROL (VITAMIN D3) * Take 1 capsule by mouth once * More... More... More... Problem List As Of Date 06/01/2018 Noted Resolved Unspecified functional disorder of intestine [K* 2018 More... FAMILY HX-MALIGNANCY NEC [Z80.8] More... Inguinal hernia without mention of obstruction * 06/06/2014 ESOPHAGEAL REFLUX [K21.9] INVALID FOR* ANXIETY STATE NOS [F41.1] INVALID FOR* Disorders of bursae and tendons in shoulder reg*INVALID FOR*07/10/2016 HEMORRHOIDS EXTERNAL THROMBOSED [K64.5] INVALID FOR*07/10/2016 MITRAL/AORTIC FAB INSUFF [I08.0] INVALID FOR*10/20/2007 BPH with obstruction/lower urinary tract sympto*INVALID FOR* HYPERTONICITY OF BLADDER [N31.8] INVALID FOR* Chest pain, unspecified [R07.9] INVALID FOR*07/10/2016 LUMB/LUMBOSAC DISC DEGEN [M51.37] INVALID FOR* Skin Cancer of Anterior Chest [C44.519] INVALID FOR* Restless leg syndrome [G25.81] INVALID FOR* Degenerative cervical disc [M50.30] INVALID FOR* GERD (gastroesophageal reflux disease) [K21.9] INVALID FOR* Osteoporosis [M81.0] INVALID FOR* Vitamin D deficiency [E55.9] INVALID FOR* Renal stone [N20.0] INVALID FOR* Erectile dysfunction [N52.9] INVALID FOR* Testalgia [N50.819] INVALID FOR*07/10/2016 Noncompliance [Z91.19] INVALID FOR*06/06/2014 Paroxysmal atrial fibrillation (HCC) [I48.0] INVALID FOR* More... Congestive heart failure (HCC) [I50.9] INVALID FOR*06/06/2014 More... 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 Mitral valve regurgitation [I34.0] INVALID FOR* More... Hyperlipidemia [E78.5] INVALID FOR* More... More... More... Mechanically assisted ventilation [Z99.11] INVALID FOR*08/07/2012 More... Stress hyperglycemia [R73.9] INVALID FOR*06/06/2014 More... Atelectasis [J98.11] INVALID FOR*06/06/2014 More... Hypotension, unspecified [I95.9] INVALID FOR*08/09/2012 More... Hypertension [I10] INVALID FOR* More... More... SUMMARY [V999.95] INVALID FOR* More... Leukocytosis [D72.829] INVALID FOR*2018 More... Multiple thyroid nodules [E04.2] INVALID FOR* History of atrial fibrillation [Z86.79] INVALID FOR* DDD (degenerative disc disease), cervical [M50.*INVALID FOR* S/P cervical spinal fusion [Z98.1] INVALID FOR* Cervical strain [S16.1XXA] INVALID FOR*2018 Myofascial pain [M79.18] INVALID FOR*2018 Nonsustained ventricular tachycardia (HCC) [I47*INVALID FOR*06/06/2014 Near syncope [R55] INVALID FOR*06/06/2014 S/P mitral valve repair [Z98.890] INVALID FOR* Ventricular tachycardia [I47.2] INVALID FOR* Lumbar disc disease with radiculopathy [M51.16] INVALID FOR*2018 Hip arthritis [M16.10] INVALID FOR*2018 Prostate cancer (HCC) [C61] INVALID FOR* Displacement of lumbar intervertebral disc with*INVALID FOR*2018 Elevated prostate specific antigen (PSA) [R97.2*INVALID FOR* Situational depression [F43.21] INVALID FOR*2018 Restless legs syndrome (RLS) [G25.81] INVALID FOR* IT band syndrome [M76.30] INVALID FOR*11/19/2015 Tachy-bora syndrome (HCC) [I49.5] INVALID FOR* History of lumbar surgery [Z98.890] INVALID FOR* Lumbar facet arthropathy (HCC) [M47.816] INVALID FOR* Trochanteric bursitis of left hip [M70.62] INVALID FOR*2018 Sinus node dysfunction (HCC) [I49.5] INVALID FOR* Cardiac syncope [R55] INVALID FOR* Impaired swallowing [R13.10] INVALID FOR* Moderate episode of recurrent major depressive *INVALID FOR* Pacemaker [Z95.0] INVALID FOR* Lumbar disc disease with radiculopathy [M51.16] INVALID FOR* Degeneration of lumbosacral intervertebral disc*INVALID FOR* More... Lumbar disc herniation with radiculopathy [M51.*INVALID FOR* More... Visit Notes: >> Sami Eng RN Kathy Jun 03, 2018 11:52 AM Status: Signed Ekg completed per order. Pt tolerated procedure without distress. Sami Eng RN Encounter Status:Closed by SAMI ENG RN on 06/03/18 NURSING PROG Observed: 05/06/2018 Status: COMPLETED Source: [place] 10:40 AM [facility] OTHER [facility]AMPUS REPOSITORY HNO ID: [id number] Author: Kimberly (Rn) DALTON Rosenthal Service: Nursing Author Type: Registered Nurse Type: Nursing Progress Note Filed: 05/06/2018 11:03 AM Note Text: Nursing Progress Note Patient Name: Cat Ahn Patient Location: ID Surgery/ME Surgery 1032 Pt received in PACU on cart from Endo post injection. VSS. Snack given. This note was completed by: Kimberly Rosenthal RN 1045 IV removed. Site without redness or swelling. Homegoing instructions given. Pt verbalizes understanding. Pt able to stand and ambulate with steady gait. 1100 Pt discharged to home via wheelchair to car accomp by staff and family in stable cond. PT ED Observed: 05/06/2018 Status: COMPLETED Source: [place] 10:39 AM [facility] REPOSITORY HNO ID: [id number] Author: Kimberly (Rn) DALTON Rosenthal Service: Nursing Author Type: Registered Nurse Type: Patient Education Filed: 05/06/2018 10:40 AM Note Text: POST OP LEARNING RESPONSE INSTRUCTION PROVIDED TO: Patient METHOD OF INSTRUCTION: Individual instruction Written instruction - handouts Verbal instruction PATIENT / FAMILY RESPONSE: Information received as demonstrated by interest and questions FOLLOW-UP PLAN: Patient instructed to call with any further issues SUPPLEMENTAL MATERIAL: Post op discharge instructions REFERRAL (RECOMMENDATION): None Electronically Signed By: Kimberly Rosenthal RN In Department: [facility] SURGERY XR FLUOROSCOPY Observed: 05/06/2018 Status: F Source: [place] 10:31 AM [facility] REPOSITORY * * *Final Report* * * DATE OF EXAM: May 06 2018 10:31AM [id number] - XR FLUOROSCOPY / PROCEDURE REASON: pain * * * * Physician Interpretation * * * * INDICATION: Pain management TECHNIQUE: 4 submitted fluoroscopic spot images Fluoroscopic Radiation Summary: Plane A, Air Kerma: 7.3 mGy Plane B, Air Kerma: 0.0 mGy Dose Area Product (DAP): 1008.5 mGy*cmS2 Fluoro time: 0:34 min:sec FINDINGS/ IMPRESSION: 4 submitted fluoroscopic spot images demonstrate multiple needles directed at the lower lumbar spine/lumbosacral junction bilaterally. Refer to the procedure note for details regarding this procedure. Brand Marketing Specialist: OSWALDO Transcribe Date/Time: May 06 2018 10:46A Dictated by : MARCOS SHRESTHA MD This examination was interpreted and the report reviewed and electronically signed by: MARCOS SHRESTHA MD on May 06 2018 10:47AM EST [id number] OPERATIVE NO Observed: 05/06/2018 Status: COMPLETED Source: [place] 10:29 AM [facility] OTHER CAMPUS REPOSITORY O ID: [id number] Author: Claudio Johns Service: Pain Management Author Type: Physician Type: Operative Report Filed: 05/06/2018 10:30 AM Note Text: PATIENT NAME: Cat Ahn SERVICE DATE: 05/06/2018 PROCEDURE NOTE PREOPERATIVE DIAGNOSIS(ES) Lumbar degenerative disc disease. Lumbar spondylosis. Lumbar facet arthropathy POSTOPERATIVE DIAGNOSIS(ES): same OPERATION:?Bilateral L4-5, L5-S1 facet??Lumbar Facet Medial Branch Nerve Blockunder fluoroscopy. ? ANESTHESIA: Versed 3 mg IV ? INDICATIONS:??Cat Ahn presents for facet joint injection.??The pain is persistent. Cat Ahn denies any new neurological or pain complaints. The patient has spondylosis at lower lumbar segments with predominant changes at L4-5 and L5-S1 levels.??As discussed in the office and confirmed today, the plan is to proceed with lumbar facet joint injection.??The risks and benefits of the procedure were discussed.??Specifically, the risks of bleeding, infection, inadvertent dural puncture, spinal heaches, vasovagal reaction, epidural hematoma, partial or permanent nerve injury were covered. The potential side effects of medications used in procedures including increase in lumbar pain, headaches, facial redness or warmth (flushing),??anxiety or mood swings, sleeplessness, fever, high blood sugar,??brief reduction in immunity were discussed.??The patient expressed understanding of potential risks and wishes to proceed with the procedure. ? ? OPERATIVE PROCEDURE: The patient was brought to the OR. The patient was positioned prone on the fluoroscopy table. Continuous hemodynamic monitoring was initiated including blood pressure, EKG, and pulse oximetry. IV sedation was administered incrementally to allow the patient to remain comfortable and conversant throughout the procedure. The area of the lumbar spine was prepped povidone-iodine three times and draped into a sterile field. Fluoroscopy was rotated to right oblique projection to identify the location of the L4-5 and L5-S1 medial branch nerves at the junctions of the superior articular process and the transverse processes of L4, L5, and the sacral ala respectively. Skin anesthesia was achieved using 10 cc of marcaine 0.25% over the injection sites. A 22 gauge, 3 1/2 spinal needle was slowly inserted at each level using AP, lateral and oblique fluoroscopic imaging. Negative aspiration for blood or CSF was confirmed. The fluoroscopy was then rotated to the contralateral side and the needle placement sites were identified.??Same technique was used to place the needles on the contralateral side.??There were total of 6 needle placements. A combination of 6ml marcaine 0.25% and 40 mg of Kenalog was injected. A total of 6 sites were injected in equal and divided doses. The needles were removed and bleeding was nil. A sterile dressing was applied.??The patient tolerated the procedure well. The patient was taken to the recovery room in stable condition. EBL: nil Start time: 10:19 AM End time: 10:27 AM I was present the entire time and personally performed the procedure. SIGNATURE: Claudio Johns MD DATE: May 06, 2018 TIME: 10:29 AM HISTORY PHYSICAL Observed: 05/06/2018 Status: COMPLETED Source: [place] 9:49 AM [facility] REPOSITORY [facility] ID: [id number] Author: Claudio Johns Service: Pain Management Author Type: Physician Type: HANDP Filed: 05/06/2018 9:49 AM Note Text: HISTORY AND PHYSICAL EXAMINATION PATIENT NAME: Cat Ahn DATE of SERVICE: 05/06/2018 Cat Ahn is here for the pain mangement procedure. The patient presents with persistent pain complaints. Cat Ahn denies any interval changes or new pain complaints or focal neurologic deficits. PAST MEDICAL HISTORY Diagnosis Date - A-fib ([facility]) - Arrhythmia - Asthma - Cardiac syncope 02/05/2016 - Chronic obstructive pulmonary disease (COPD) ([facility]) - Congestive heart failure (HCC) - Degenerative cervical disc 02/05/2011 - Diverticulosis of colon (without mention of hemorrhage) Diverticulosis - Family history of other specified malignant neoplasm FX HX COLON CA - GERD (gastroesophageal reflux disease) 06/27/2011 - Hypertension 08/09/2012 - Hypertrophy of prostate without urinary obstruction and other lower urinary tract symptoms (LUTS) - Inguinal hernia without mention of obstruction or gangrene, bilateral, (not specified as recurrent) - Lumbar disc disease with radiculopathy 02/10/2014 - Mental disorder - Moderate episode of recurrent major depressive disorder (HCC) 03/24/2017 - Osteoporosis 07/15/2011 - Other and unspecified hyperlipidemia Hyperlipidemia - Other congenital hamartoses, 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 - Peripheral vascular disease (HCC) - Renal stone 09/05/2011 - Restless leg syndrome 07/30/2010 - Restless legs syndrome (RLS) 02/22/2015 - Tachy-bora syndrome (HCC) 11/19/2015 - Thyroid disorder - Unspecified functional disorder of intestine SPASTIC COLITIS - Unspecified hemorrhoids without mention of complication Hemorrhoids - Ventricular tachycardia (HCC) 06/28/13 flecainide - Vitamin D deficiency 07/17/2011 PAST SURGICAL HISTORY Procedure Laterality Date - ALGN JUSTYNAA IGE - ARTHROSCOPIC RELEASE SHOULDER JOINT 09/05 adhesive capsulitis L shoulder - COLONOSCOP W/ OR W/O BRS SPEC 07/05/2001 - COLONOSCOP W/ OR W/O BRSH SPEC 12/08/2006 Colonoscopy - COLONOSCOP W/ OR W/O BRS SPEC 03/21/13 Colonoscopy - EGD W/O OR W/BRUSH/WASH - EGD W/O OR W/BRUSH/WASH 03/21/13 EGD - FNA WITH IMAGING 01/12/13 U/S FNA left thyroid x 2 - HEART SURGERY HX Mitral valve repair- Jul 2012 - INCISE EXTERNAL HEMORRHOID 04/22/06 - INCISE EXTERNAL HEMORRHOID 11/30/13 Exc. 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 - MAZE PROCEDURE 2012 - PAST SURGICAL HISTORY OF 05/2011 C5-6-7 diskectomy, fusion - REPAIR ING HERNIA,5+Y/O,REDUCIBL LAPAROSCOPIC, BILAT - REPAIR ROTATOR CUFF,ACUTE 08/2005 R Rotator cuff repair - REPLACEMENT OF MITRAL VALVE 2012 - TOTAL KNEE REPLACEMENT Knee replacement, total - TRANSURETHRAL ELEC-SURG PROSTATECTOM 07/08 Social History Marital status: Spouse name: Betsy Years of education: Number of children: 2 Occupational History Occupation Employer Comment [employer] Social History Main Topics Smoking status: Former Smoker Packs/day: 0.10 Years: 2.00 Types: Cigarettes Smokeless tobacco: Never Used Comment: 1974 Alcohol use: Yes Comment: occasionally Drug use: No Sexual activity: Yes Partners with: Female FAMILY HISTORY Problem Relation Age of Onset - Colon Cancer Father - Cancer Sister lung cancer - other (Parkinson's disease) Sister ALLERGIES No Known Allergies No current facility-administered medications for this encounter. Physical Exam: Performed in conjunction with observation. The patient is alert and oriented x3. The patient is in no acute distress. Neck: Supple. The range of motion is intact. Lungs: clear CVR: RRR. Extremities: no reported edema or erythema. Examination indicates no changes Impression: Lumbar spondylosis Lumbar facet arthropathy Plan: The informed consent has been obtained. The plan is to proceed with the procedure as planned. SIGNATURE: Claudio Johns MD DATE: May 06, 2018 TIME: 9:49 AM PT ED Observed: 05/06/2018 Status: COMPLETED Source: [place] 9:02 AM [facility] OTHER [place] REPOSITORY HNO ID: [id number] Author: Fiorella (Rn) DALTON Montero Service: (none) Author Type: Registered Nurse Type: Patient Education Filed: 05/06/2018 9:03 AM Note Text: PRE OP LEARNING ASSESSMENT PROCEDURE/SURGERY: SURGERY: Nerve block READINESS TO LEARN COGNITIVE ABILITY: Alert and oriented MOTIVATION TO LEARN: Interested FAMILY SUPPORT: Unable to assess - Family not present PATIENT LEARNS BEST BY: Individual Instruction Verbal Instruction FACTORS AFFECTING LEARNING: None PHYSICAL LIMITATIONS AFFECTING LEARNING: None Electronically Signed By: Fiorella Montero RN In Department: [facility] SURGERY CNNURSE Observed: 04/23/2018 Status: COMPLETED Source: [place] 10:00 AM [facility] [place] REPOSITORY Nurse Visit (FAMPWS) Cat AHN ([id number]) 1945 M NFR Date Time Provider Department 04/23/18 10:00 AM [place] NURSE [facility] During your visit today, we recorded the following information about you: Temperature 96.7 degrees Sharla Palener TRAFFIC CONTROL TECHNICIAN 04/23/2018 9:49 AM Signed 73 year old male here for INACTIVATED INFLUENZA VACCINE. Season Patient is identified by name and date of : Yes [] CONTRAINDICATIONS color enhanced section Age less than 6 months? No Allergy to eggs, chicken, chicken feathers, or chicken dander? No Allergy to thimerosal (a preservative) or formaldehyde, gelatin? No History of severe reaction to any vaccine component or a previous dose of influenza vaccination? No History of Guillain-Clio Syndrome within 6 weeks after a previous influenza vaccine? No Patient is not moderately or severely ill? No Current temperature greater or equal to 100.4F? No History of Bone Marrow Transplant prior 6 months or solid organ transplant in the past 3 months ? No History of fainting after a prior injection or medical procedure? No- ? If patient has fainted in the past, the CDC recommends sitting or lying down for 15 minutes after the vaccination. [] VERIFICATION color enhanced section Was the answer Yes for any of the above contraindications? No contraindications present. Acceptable to proceed with vaccine. Patient/guardian agrees the above answers are true to the best of their knowledge? Yes Flu vaccine information sheet given? Yes See immunization activity in [facility] for details of immunizations adminstered today. Patient age: [age] year old For The Flu Season 6-35 months old: Fluzone 0.25 ml - IM (Preservative Free) 3 years of age: Fluzone 0.5 ml - IM (Preservative Free) 3 years and older: Fluzone 0.5 ml- IM-(with Preservatives) 65+ years old: 2-49 years old Fluzone High-Dose 0.5 ml - IM (Preservative Free) FLUMIST- intranasal REMEMBER: If patient is less than 9 years of age and this is the first vaccine of Influenza to be received in any flu season, they should receive a second dose in one months time. Referring Provider: SELF [[id number]] Allergies As of Date: 04/23/2018 (No Known Allergies) Date Reviewed: 04/13/2018 Reviewed by: Tabitha Vasquez MA - Fully Assessed Reason for Visit: Imm/Inj [58] Cmt: Flu Vaccine Primary Visit Diagnosis:Need for vaccination [Z23] Order(s):INFLUENZA SEASONAL HIGH DOSE AGE 65+ [[id number]] Order #: [id number] Prescriptions as of 04/23/2018 Sig: ATORVASTATIN 10 MG TABLET Take 1 tablet by mouth once d* METOPROLOL SUCCINATE ER 25 MG* Take 1 tablet by mouth once d* FLECAINIDE 100 MG TABLET Take 1 tablet by mouth twice * TAMSULOSIN 0.4 MG CAPSULE Take 1 capsule by mouth once * OMEPRAZOLE 20 MG CAPSULE,CHATA* TAKE 1 CAPSULE EVERY DAY ON A* ZOLPIDEM 5 MG TABLET Take 1 tablet by mouth at bed* FLUTICASONE 50 MCG/ACTUATION * Use 2 Sprays in each nostril * PRAMIPEXOLE 0.75 MG TABLET Take 0.75 mg by mouth twice d* CHOLECALCIFEROL (VITAMIN D3) * Take 1 capsule by mouth once * More... More... More... Problem List As Of Date 04/23/2018 Noted Resolved Unspecified functional disorder of intestine [K* 2018 More... FAMILY HX-MALIGNANCY NEC [Z80.8] More... Inguinal hernia without mention of obstruction * 06/06/2014 ESOPHAGEAL REFLUX [K21.9] INVALID FOR* ANXIETY STATE NOS [F41.1] INVALID FOR* Disorders of bursae and tendons in shoulder reg*INVALID FOR*07/10/2016 HEMORRHOIDS EXTERNAL THROMBOSED [K64.5] INVALID FOR*07/10/2016 MITRAL/AORTIC FAB INSUFF [I08.0] INVALID FOR*10/20/2007 BPH with obstruction/lower urinary tract sympto*INVALID FOR* HYPERTONICITY OF BLADDER [N31.8] INVALID FOR* Chest pain, unspecified [R07.9] INVALID FOR*07/10/2016 LUMB/LUMBOSAC DISC DEGEN [M51.37] INVALID FOR* Skin Cancer of Anterior Chest [C44.519] INVALID FOR* Restless leg syndrome [G25.81] INVALID FOR* Degenerative cervical disc [M50.30] INVALID FOR* GERD (gastroesophageal reflux disease) [K21.9] INVALID FOR* Osteoporosis [M81.0] INVALID FOR* Vitamin D deficiency [E55.9] INVALID FOR* Renal stone [N20.0] INVALID FOR* Erectile dysfunction [N52.9] INVALID FOR* Testalgia [N50.819] INVALID FOR*07/10/2016 Noncompliance [Z91.19] INVALID FOR*06/06/2014 Paroxysmal atrial fibrillation (HCC) [I48.0] INVALID FOR* Priority: A More... Congestive heart failure (HCC) [I50.9] INVALID FOR*06/06/2014 More... 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 Mitral valve regurgitation [I34.0] INVALID FOR* Priority: A More... Hyperlipidemia [E78.5] INVALID FOR* Priority: E More... More... More... Mechanically assisted ventilation [Z99.11] INVALID FOR*08/07/2012 Priority: B More... Stress hyperglycemia [R73.9] INVALID FOR*06/06/2014 Priority: E More... Atelectasis [J98.11] INVALID FOR*06/06/2014 Priority: B More... Hypotension, unspecified [I95.9] INVALID FOR*08/09/2012 Priority: C More... Hypertension [I10] INVALID FOR* Priority: D More... More... SUMMARY [V999.95] INVALID FOR* Priority: Mild More... Leukocytosis [D72.829] INVALID FOR*2018 Priority: D More... Multiple thyroid nodules [E04.2] INVALID FOR* History of atrial fibrillation [Z86.79] INVALID FOR* DDD (degenerative disc disease), cervical [M50.*INVALID FOR* S/P cervical spinal fusion [Z98.1] INVALID FOR* Cervical strain [S16.1XXA] INVALID FOR*2018 Myofascial pain [M79.18] INVALID FOR*2018 Nonsustained ventricular tachycardia (HCC) [I47*INVALID FOR*06/06/2014 Near syncope [R55] INVALID FOR*06/06/2014 S/P mitral valve repair [Z98.890] INVALID FOR* Ventricular tachycardia [I47.2] INVALID FOR* Lumbar disc disease with radiculopathy [M51.16] INVALID FOR*2018 Hip arthritis [M16.10] INVALID FOR*2018 Prostate cancer (HCC) [C61] INVALID FOR* Displacement of lumbar intervertebral disc with*INVALID FOR*2018 Elevated prostate specific antigen (PSA) [R97.2*INVALID FOR* Situational depression [F43.21] INVALID FOR*2018 Restless legs syndrome (RLS) [G25.81] INVALID FOR* IT band syndrome [M76.30] INVALID FOR*11/19/2015 Tachy-bora syndrome (HCC) [I49.5] INVALID FOR* History of lumbar surgery [Z98.890] INVALID FOR* Lumbar facet arthropathy (HCC) [M47.816] INVALID FOR* Trochanteric bursitis of left hip [M70.62] INVALID FOR*2018 Sinus node dysfunction (HCC) [I49.5] INVALID FOR* Cardiac syncope [R55] INVALID FOR* Impaired swallowing [R13.10] INVALID FOR* Moderate episode of recurrent major depressive *INVALID FOR* Pacemaker [Z95.0] INVALID FOR* Lumbar disc disease with radiculopathy [M51.16] INVALID FOR* Degeneration of lumbosacral intervertebral disc*INVALID FOR* More... Lumbar disc herniation with radiculopathy [M51.*INVALID FOR* More... Encounter Status:Closed by SHARLA COBOS LPN on 04/23/18 PROGRESS Observed: 04/23/2018 Status: COMPLETED Source: [place] 9:47 AM [facility] REPOSITORY O ID: [id number] Author: Sharla Cobos LPN Service: (none) Author Type: (none) Type: Progress Notes Filed: 04/23/2018 9:49 AM Note Text: 73 year old male here for INACTIVATED INFLUENZA VACCINE. [id number] Season Patient is identified by name and date of : Yes [] CONTRAINDICATIONS color enhanced section Age less than 6 months? No Allergy to eggs, chicken, chicken feathers, or chicken dander? No Allergy to thimerosal (a preservative) or formaldehyde, gelatin? No History of severe reaction to any vaccine component or a previous dose of influenza vaccination? No History of Guillain-Clio Syndrome within 6 weeks after a previous influenza vaccine? No Patient is not moderately or severely ill? No Current temperature greater or equal to 100.4F? No History of Bone Marrow Transplant prior 6 months or solid organ transplant in the past 3 months ? No History of fainting after a prior injection or medical procedure? No- ? If patient has fainted in the past, the CDC recommends sitting or lying down for 15 minutes after the vaccination. [] VERIFICATION color enhanced section Was the answer Yes for any of the above contraindications? No contraindications present. Acceptable to proceed with vaccine. Patient/guardian agrees the above answers are true to the best of their knowledge? Yes Flu vaccine information sheet given? Yes See immunization activity in [facility] for details of immunizations adminstered today. Patient age: [age] year old For The 0848-7246 Flu Season 6-35 months old: Fluzone 0.25 ml - IM (Preservative Free) 3 years of age: Fluzone 0.5 ml - IM (Preservative Free) 3 years and older: Fluzone 0.5 ml- IM-(with Preservatives) 65+ years old: 2-49 years old Fluzone High-Dose 0.5 ml - IM (Preservative Free) FLUMIST- intranasal REMEMBER: If patient is less than 9 years of age and this is the first vaccine of Influenza to be received in any flu season, they should receive a second dose in one months time. CNOV Observed: 04/13/2018 Status: COMPLETED Source: [place] 10:30 AM [facility] REPOSITORY Office Visit (PNMDNA) Cat AHN ([id number]) 1945 M NFR Date Time Provider Department 04/13/18 10:30 AM RANI MATTSON (LUIS F) PNMDMEME During your visit today, we recorded the following information about you: Pulse Weight 88/minute 71.7 kg Rani Mattson APRN.CNP 04/13/2018 12:05 PM Signed SUBJECTIVE: Cat Ahn presents to [facility] for a followup appointment for low back and right hip. Since the last visit, Cat Ahn states the pain has been staying the same. Current pain intensity is 5 on a scale of 0-10. Pain located in Back and right hip area and radiates down the posterior leg. Pain described as aching The patient Reports morning stiffness. Symptoms interfere with physical activity. Pain is exacerbated by standing, forward flexion, lifting, getting up from sitting and walking. Pain is mitigated by ice and heat. The medications are effective. The patient states the last dose of Baclofen was taken two nights ago. REVIEW OF SYSTEMS: Constitutional: (-) Fever (-) Night Sweats (-) Weight Gain (-) Weight Loss (+) Fatigue Cardiovascular: (-) Chest Pain (-) Palpitations (-) Lightheadedness (-) Swelling of Ankles (+) Hx Heart Surgery Respiratory: (-) Shortness of Breath (-) Cough (-) Wheezing (+) Snoring Gastrointestinal: (-) Incontinence (-) Abdominal Pain (-) Diarrhea (-) Constipation (-) Nausea/Vomiting (-) Heart Burn Endocrine: (+) Thyroid Disorder (-) Diabetes Hematologic: (-) Prolonged Bleeding (-) Easy Bruising Genitourinary: (-) Incontinence (-) Frequency (-) Urinary Urgency Skin: (-) Rashes (-) Itching (-) Other Lesions Neurologic: (-) Headache (-) Double Vision (-) Confusion (-) Paralysis Psychiatric: (-) Depression (-) Anxiety (-) Delusions (-) Hallucinations (-) Personal History of Alcohol or Substance Abuse (-) Family History of Alcohol or Substance Abuse OBJECTIVE: Pulse 88 Wt 158 lb (71.7kg) SpO2 97% PHYSICAL EXAMINATION: General appearance: Well appearing, in no acute distress, alert Skin: Skin color, texture, turgor normal, no rashes or lesions Neck: No pain to palpation over the cervical paraspinous muscles. No pain with neck flexion, extension, or lateral flexion Cardiovascular: Regular rate Lungs: Normal respiratory rate and rhythm Abdomen: Abdomen soft and non-tender. Back: Intact range of motion without pain reproduction. Facet:positive facet loading bilaterally Spine: Reports Tenderness on palpation: Lumbar/Pelvic axial Extremities: No deformities, edema, or skin discoloration. Good capillary refill. Musculoskeletal: Joint pain denies Neuro: No loss of sensation is noted. Station and Gait: antalgic gait Motor: Exhibits full strength in all four extremities. Trigger points: none. ASSESSMENT: Assessment : Patient reports lower back pain, denies radicular symptoms down the lower extremities He had a bilateral L4, 5, S1 facet injections 11?16?17. He would like to repeat He takes baclofen and [place] very sparingly He still continues to grieve for his that 11 months ago. He reports that he has support with his family and friends Encounter Diagnosis ICD-10-CM 1. Lumbar disc disease with radiculopathy M51.16 2. Lumbar facet arthropathy M47.816 3. Degeneration of lumbar or lumbosacral intervertebral disc M51.37 PDMP website checked and validated. All prescriptions have been APPROPRIATELY filled. No suspicious activity was identified. 04/13/2018 by Tabitha Vasquez MA Narcotic Agreement reviewed and signed?: N/A on April 13, 2018 The pain panel was N/A PLAN: Injection history was reviewed. Medication use and compliance were reviewed. 1. Continue medication management through the [facility] 2. He takes baclofen and [place] 5/325 very sparingly. No refills needed today 3. Interventional procedure options discussed. Ordered and schedule bilateral L4, 5, S1 facet injections 4. Patient is active his pain is tolerated 5) F/U in 3 months This note was partially generated using [email or web address] voice recognition system. The above plan and management options were discussed at length with patient. Patient is in agreement with the above and verbalized understanding. Rani Mattson APRN, DIRECTOR OF SAFETY AND SECURITY April 13, 2018 Referring Provider: SELF [200] Allergies As of Date: 04/13/2018 (No Known Allergies) Date Reviewed: 04/13/2018 Reviewed by: Tabitha Vasquez MA - Fully Assessed Reason for Visit: Established Patient [175] Low Back Pain [126] Right Hip Pain [1554] Primary Visit Diagnosis:Lumbar disc disease with radiculopathy [M51.16] Other Visit Diagnoses:Lumbar facet arthropathy [M47.816] Degeneration of lumbar or lumbosacral intervertebral disc [M51.37] Order(s):NJX DX/THER AGT PVRT FACET JT LMBR/SAC 1 LEVEL [[id number]] Order #: [id number] NJX DX/THER AGT PVRT FACET JT LMBR/SAC 2ND LEVEL [[id number]] Order #: [id number] Prescriptions as of 04/13/2018 Sig: ATORVASTATIN 10 MG TABLET Take 1 tablet by mouth once d* METOPROLOL SUCCINATE ER 25 MG* Take 1 tablet by mouth once d* FLECAINIDE 100 MG TABLET Take 1 tablet by mouth twice * TAMSULOSIN 0.4 MG CAPSULE Take 1 capsule by mouth once * OMEPRAZOLE 20 MG CAPSULE,CHATA* TAKE 1 CAPSULE EVERY DAY ON A* FLUTICASONE 50 MCG/ACTUATION * Use 2 Sprays in each nostril * PRAMIPEXOLE 0.75 MG TABLET Take 0.75 mg by mouth twice d* CHOLECALCIFEROL (VITAMIN D3) * Take 1 capsule by mouth once * ZOLPIDEM 5 MG TABLET Take 1 tablet by mouth at bed* More... More... More... Problem List As Of Date 04/13/2018 Noted Resolved Unspecified functional disorder of intestine [K* 2018 More... FAMILY HX-MALIGNANCY NEC [Z80.8] More... Inguinal hernia without mention of obstruction * 06/06/2014 ESOPHAGEAL REFLUX [K21.9] INVALID FOR* ANXIETY STATE NOS [F41.1] INVALID FOR* Disorders of bursae and tendons in shoulder reg*INVALID FOR*07/10/2016 HEMORRHOIDS EXTERNAL THROMBOSED [K64.5] INVALID FOR*07/10/2016 MITRAL/AORTIC FAB INSUFF [I08.0] INVALID FOR*10/20/2007 BPH with obstruction/lower urinary tract sympto*INVALID FOR* HYPERTONICITY OF BLADDER [N31.8] INVALID FOR* Chest pain, unspecified [R07.9] INVALID FOR*07/10/2016 LUMB/LUMBOSAC DISC DEGEN [M51.37] INVALID FOR* Skin Cancer of Anterior Chest [C44.519] INVALID FOR* Restless leg syndrome [G25.81] INVALID FOR* Degenerative cervical disc [M50.30] INVALID FOR* GERD (gastroesophageal reflux disease) [K21.9] INVALID FOR* Osteoporosis [M81.0] INVALID FOR* Vitamin D deficiency [E55.9] INVALID FOR* Renal stone [N20.0] INVALID FOR* Erectile dysfunction [N52.9] INVALID FOR* Testalgia [N50.819] INVALID FOR*07/10/2016 Noncompliance [Z91.19] INVALID FOR*06/06/2014 Paroxysmal atrial fibrillation (HCC) [I48.0] INVALID FOR* Priority: A More... Congestive heart failure (HCC) [I50.9] INVALID FOR*06/06/2014 More... 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 Mitral valve regurgitation [I34.0] INVALID FOR* Priority: A More... Hyperlipidemia [E78.5] INVALID FOR* Priority: E More... More... More... Mechanically assisted ventilation [Z99.11] INVALID FOR*08/07/2012 Priority: B More... Stress hyperglycemia [R73.9] INVALID FOR*06/06/2014 Priority: E More... Atelectasis [J98.11] INVALID FOR*06/06/2014 Priority: B More... Hypotension, unspecified [I95.9] INVALID FOR*08/09/2012 Priority: C More... Hypertension [I10] INVALID FOR* Priority: D More... More... SUMMARY [V999.95] INVALID FOR* Priority: Mild More... Leukocytosis [D72.829] INVALID FOR*2018 Priority: D More... Multiple thyroid nodules [E04.2] INVALID FOR* History of atrial fibrillation [Z86.79] INVALID FOR* DDD (degenerative disc disease), cervical [M50.*INVALID FOR* S/P cervical spinal fusion [Z98.1] INVALID FOR* Cervical strain [S16.1XXA] INVALID FOR*2018 Myofascial pain [M79.18] INVALID FOR*2018 Nonsustained ventricular tachycardia (HCC) [I47*INVALID FOR*06/06/2014 Near syncope [R55] INVALID FOR*06/06/2014 S/P mitral valve repair [Z98.890] INVALID FOR* Ventricular tachycardia [I47.2] INVALID FOR* Lumbar disc disease with radiculopathy [M51.16] INVALID FOR*2018 Hip arthritis [M16.10] INVALID FOR*2018 Prostate cancer (HCC) [C61] INVALID FOR* Displacement of lumbar intervertebral disc with*INVALID FOR*2018 Elevated prostate specific antigen (PSA) [R97.2*INVALID FOR* Situational depression [F43.21] INVALID FOR*2018 Restless legs syndrome (RLS) [G25.81] INVALID FOR* IT band syndrome [M76.30] INVALID FOR*11/19/2015 Tachy-bora syndrome (HCC) [I49.5] INVALID FOR* History of lumbar surgery [Z98.890] INVALID FOR* Lumbar facet arthropathy (HCC) [M47.816] INVALID FOR* Trochanteric bursitis of left hip [M70.62] INVALID FOR*2018 Sinus node dysfunction (HCC) [I49.5] INVALID FOR* Cardiac syncope [R55] INVALID FOR* Impaired swallowing [R13.10] INVALID FOR* Moderate episode of recurrent major depressive *INVALID FOR* Pacemaker [Z95.0] INVALID FOR* Lumbar disc disease with radiculopathy [M51.16] INVALID FOR* Degeneration of lumbosacral intervertebral disc*INVALID FOR* More... Lumbar disc herniation with radiculopathy [M51.*INVALID FOR* More... Encounter Status:Closed by RANI MATTSON on 04/13/18 PROGRESS Observed: 04/13/2018 Status: COMPLETED Source: [place] 10:18 AM [facility] REPOSITORY HNO ID: [id number] Author: Rani Lazo (Agnieszka Mattson Service: (none) Author Type: Nurse Practitioner Type: Progress Notes Filed: 04/13/2018 12:05 PM Note Text: SUBJECTIVE: Cat Ahn presents to [facility] for a followup appointment for low back and right hip. Since the last visit, Cat Ahn states the pain has been staying the same. Current pain intensity is 5 on a scale of 0-10. Pain located in Back and right hip area and radiates down the posterior leg. Pain described as aching The patient Reports morning stiffness. Symptoms interfere with physical activity. Pain is exacerbated by standing, forward flexion, lifting, getting up from sitting and walking. Pain is mitigated by ice and heat. The medications are effective. The patient states the last dose of Baclofen was taken two nights ago. REVIEW OF SYSTEMS: Constitutional: (-) Fever (-) Night Sweats (-) Weight Gain (-) Weight Loss (+) Fatigue Cardiovascular: (-) Chest Pain (-) Palpitations (-) Lightheadedness (-) Swelling of Ankles (+) Hx Heart Surgery Respiratory: (-) Shortness of Breath (-) Cough (-) Wheezing (+) Snoring Gastrointestinal: (-) Incontinence (-) Abdominal Pain (-) Diarrhea (-) Constipation (-) Nausea/Vomiting (-) Heart Burn Endocrine: (+) Thyroid Disorder (-) Diabetes Hematologic: (-) Prolonged Bleeding (-) Easy Bruising Genitourinary: (-) Incontinence (-) Frequency (-) Urinary Urgency Skin: (-) Rashes (-) Itching (-) Other Lesions Neurologic: (-) Headache (-) Double Vision (-) Confusion (-) Paralysis Psychiatric: (-) Depression (-) Anxiety (-) Delusions (-) Hallucinations (-) Personal History of Alcohol or Substance Abuse (-) Family History of Alcohol or Substance Abuse OBJECTIVE: Pulse 88 Wt 158 lb (71.7kg) SpO2 97% PHYSICAL EXAMINATION: General appearance: Well appearing, in no acute distress, alert Skin: Skin color, texture, turgor normal, no rashes or lesions Neck: No pain to palpation over the cervical paraspinous muscles. No pain with neck flexion, extension, or lateral flexion Cardiovascular: Regular rate Lungs: Normal respiratory rate and rhythm Abdomen: Abdomen soft and non-tender. Back: Intact range of motion without pain reproduction. Facet:positive facet loading bilaterally Spine: Reports Tenderness on palpation: Lumbar/Pelvic axial Extremities: No deformities, edema, or skin discoloration. Good capillary refill. Musculoskeletal: Joint pain denies Neuro: No loss of sensation is noted. Station and Gait: antalgic gait Motor: Exhibits full strength in all four extremities. Trigger points: none. ASSESSMENT: Assessment : Patient reports lower back pain, denies radicular symptoms down the lower extremities He had a bilateral L4, 5, S1 facet injections 11?16?17. He would like to repeat He takes baclofen and [place] very sparingly He still continues to grieve for his that 11 months ago. He reports that he has support with his family and friends Encounter Diagnosis ICD-10-CM 1. Lumbar disc disease with radiculopathy M51.16 2. Lumbar facet arthropathy M47.816 3. Degeneration of lumbar or lumbosacral intervertebral disc M51.37 PDMP website checked and validated. All prescriptions have been APPROPRIATELY filled. No suspicious activity was identified. 04/13/2018 by Tabitha Vasquez MA Narcotic Agreement reviewed and signed?: N/A on April 13, 2018 The pain panel was N/A PLAN: Injection history was reviewed. Medication use and compliance were reviewed. 1. Continue medication management through the [facility] 2. He takes baclofen and [place] 5/325 very sparingly. No refills needed today 3. Interventional procedure options discussed. Ordered and schedule bilateral L4, 5, S1 facet injections 4. Patient is active his pain is tolerated 5) F/U in 3 months This note was partially generated using [email or web address] voice recognition system. The above plan and management options were discussed at length with patient. Patient is in agreement with the above and verbalized understanding. Rani Mattson APRN, LUIS F April 13, 2018 HOSP Observed: 04/13/2018 Status: COMPLETED Source: [place] 12:00 AM CLINIC OTHER CAMPUS REPOSITORY Patient:Cat Ahn MRN: <[id number]> Height:5' 10(1.778 m) Weight:150 lb (68.04 kg) Outpatient Medications as of 05/06/18: atorvastatin (LIPITOR) 10 mg tablet metoprolol succinate ER (TOPROL XL) 25 mg 24 hr tablet flecainide (TAMBOCOR) 100 mg tablet tamsulosin ER (FLOMAX) 0.4 mg cap omeprazole (PRILOSEC) 20 mg capsule zolpidem (AMBIEN) 5 mg tablet fluticasone (FLONASE) 50 mcg/actuation nasal spray Pramipexole (MIRAPEX) 0.75 mg tablet Cholecalciferol, Vitamin D3, 1,000 unit cap Admission/Clinic Administered Medications as of 05/06/18: Patient has no admission medications. 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] Degeneration of lumbar or lumbosacral intervertebral disc [M51.37] Skin cancer of anterior chest [C44.519] Restless leg syndrome [G25.81] Degenerative cervical disc [M50.30] GERD (gastroesophageal reflux disease) [K21.9] Osteoporosis [M81.0] Vitamin D deficiency [E55.9] Renal stone [N20.0] Erectile dysfunction [N52.9] Paroxysmal atrial fibrillation (HCC) [I48.0] Mitral valve regurgitation [I34.0] Hyperlipidemia [E78.5] Hypertension [I10] SUMMARY [V999.95] Multiple thyroid nodules [E04.2] History of atrial fibrillation [Z86.79] DDD (degenerative disc disease), cervical [M50.30] S/P cervical spinal fusion [Z98.1] S/P mitral valve repair [Z98.890] Ventricular tachycardia (HCC) [I47.2] Prostate cancer (HCC) [C61] Elevated prostate specific antigen (PSA) [R97.20] Restless legs syndrome (RLS) [G25.81] Tachy-bora syndrome (HCC) [I49.5] History of lumbar surgery [Z98.890] Lumbar facet arthropathy [M47.816] Sinus node dysfunction (HCC) [I49.5] Cardiac syncope [R55] Impaired swallowing [R13.10] Moderate episode of recurrent major depressive disorder (HCC) [F33.1] Pacemaker [Z95.0] Lumbar disc disease with radiculopathy [M51.16] Degeneration of lumbosacral intervertebral disc [M51.37] Lumbar disc herniation with radiculopathy [M51.16] Allergies: No Known Allergies Date Verified:05/06/18 Lab Values No results within the last 30 days for the following basenames: K,HCT Progress Notes ([facility]): Sharla Cobos MENDY 04/23/2018 9:49 AM Signed 73 year old male here for INACTIVATED INFLUENZA VACCINE. Season Patient is identified by name and date of : Yes [] CONTRAINDICATIONS color enhanced section Age less than 6 months? No Allergy to eggs, chicken, chicken feathers, or chicken dander? No Allergy to thimerosal (a preservative) or formaldehyde, gelatin? No History of severe reaction to any vaccine component or a previous dose of influenza vaccination? No History of Guillain-Clio Syndrome within 6 weeks after a previous influenza vaccine? No Patient is not moderately or severely ill? No Current temperature greater or equal to 100.4F? No History of Bone Marrow Transplant prior 6 months or solid organ transplant in the past 3 months ? No History of fainting after a prior injection or medical procedure? No- ? If patient has fainted in the past, the CDC recommends sitting or lying down for 15 minutes after the vaccination. [] VERIFICATION color enhanced section Was the answer Yes for any of the above contraindications? No contraindications present. Acceptable to proceed with vaccine. Patient/guardian agrees the above answers are true to the best of their knowledge? Yes Flu vaccine information sheet given? Yes See immunization activity in [facility] for details of immunizations adminstered today. Patient age: [age] year old For The [id number] Flu Season 6-35 months old: Fluzone 0.25 ml - IM (Preservative Free) 3 years of age: Fluzone 0.5 ml - IM (Preservative Free) 3 years and older: Fluzone 0.5 ml- IM-(with Preservatives) 65+ years old: 2-49 years old Fluzone High-Dose 0.5 ml - IM (Preservative Free) FLUMIST- intranasal REMEMBER: If patient is less than 9 years of age and this is the first vaccine of Influenza to be received in any flu season, they should receive a second dose in one months time. Progress Notes ([facility]): Rani Mattson APRN.DIRECTOR OF SAFETY AND SECURITY 04/13/2018 12:05 PM Signed SUBJECTIVE: Cat Ahn presents to [facility] for a followup appointment for low back and right hip. Since the last visit, Cat Ahn states the pain has been staying the same. Current pain intensity is 5 on a scale of 0-10. Pain located in Back and right hip area and radiates down the posterior leg. Pain described as aching The patient Reports morning stiffness. Symptoms interfere with physical activity. Pain is exacerbated by standing, forward flexion, lifting, getting up from sitting and walking. Pain is mitigated by ice and heat. The medications are effective. The patient states the last dose of Baclofen was taken two nights ago. REVIEW OF SYSTEMS: Constitutional: (-) Fever (-) Night Sweats (-) Weight Gain (-) Weight Loss (+) Fatigue Cardiovascular: (-) Chest Pain (-) Palpitations (-) Lightheadedness (-) Swelling of Ankles (+) Hx Heart Surgery Respiratory: (-) Shortness of Breath (-) Cough (-) Wheezing (+) Snoring Gastrointestinal: (-) Incontinence (-) Abdominal Pain (-) Diarrhea (-) Constipation (-) Nausea/Vomiting (-) Heart Burn Endocrine: (+) Thyroid Disorder (-) Diabetes Hematologic: (-) Prolonged Bleeding (-) Easy Bruising Genitourinary: (-) Incontinence (-) Frequency (-) Urinary Urgency Skin: (-) Rashes (-) Itching (-) Other Lesions Neurologic: (-) Headache (-) Double Vision (-) Confusion (-) Paralysis Psychiatric: (-) Depression (-) Anxiety (-) Delusions (-) Hallucinations (-) Personal History of Alcohol or Substance Abuse (-) Family History of Alcohol or Substance Abuse OBJECTIVE: Pulse 88 Wt 158 lb (71.7kg) SpO2 97% PHYSICAL EXAMINATION: General appearance: Well appearing, in no acute distress, alert Skin: Skin color, texture, turgor normal, no rashes or lesions Neck: No pain to palpation over the cervical paraspinous muscles. No pain with neck flexion, extension, or lateral flexion Cardiovascular: Regular rate Lungs: Normal respiratory rate and rhythm Abdomen: Abdomen soft and non-tender. Back: Intact range of motion without pain reproduction. Facet:positive facet loading bilaterally Spine: Reports Tenderness on palpation: Lumbar/Pelvic axial Extremities: No deformities, edema, or skin discoloration. Good capillary refill. Musculoskeletal: Joint pain denies Neuro: No loss of sensation is noted. Station and Gait: antalgic gait Motor: Exhibits full strength in all four extremities. Trigger points: none. ASSESSMENT: Assessment : Patient reports lower back pain, denies radicular symptoms down the lower extremities He had a bilateral L4, 5, S1 facet injections 11?16?17. He would like to repeat He takes baclofen and [place] very sparingly He still continues to grieve for his that 11 months ago. He reports that he has support with his family and friends Encounter Diagnosis ICD-10-CM 1. Lumbar disc disease with radiculopathy M51.16 2. Lumbar facet arthropathy M47.816 3. Degeneration of lumbar or lumbosacral intervertebral disc M51.37 PDMP website checked and validated. All prescriptions have been APPROPRIATELY filled. No suspicious activity was identified. 04/13/2018 by Tabitha Vasquez MA Narcotic Agreement reviewed and signed?: N/A on April 13, 2018 The pain panel was N/A PLAN: Injection history was reviewed. Medication use and compliance were reviewed. 1. Continue medication management through the [facility] 2. He takes baclofen and [place] 5/325 very sparingly. No refills needed today 3. Interventional procedure options discussed. Ordered and schedule bilateral L4, 5, S1 facet injections 4. Patient is active his pain is tolerated 5) F/U in 3 months This note was partially generated using [email or web address] voice recognition system. The above plan and management options were discussed at length with patient. Patient is in agreement with the above and verbalized understanding. Rani Mattson APRN, DIRECTOR OF SAFETY AND SECURITY April 13, 2018 Previous Version PROGRESS Observed: 2018 Status: COMPLETED Source: [place] 9:56 AM [facility] RE[facility]IT[facility] ID: [id number] Author: Butch Pulido III Service: (none) Author Type: Physician Type: Progress Notes Filed: 2018 12:32 PM Note Text: SUBJECTIVE: This is a 73 year old male that is here today for 1. med refills 2. discuss screening colonoscopy. States he is weak from colon prep. Father with colon cancer. Reviewed colonoscopy report from 02/2013=normal 3. past 3 mos he has been more tearful and emotional. Notes that he is grieving , anniversary, her birthday during past 3 mos. he is not suicidal, and experience December, and still has ambition to do things. He repeatedly refused to take a medication for depression. PAST MEDICAL HISTORY Diagnosis Date - A-fib ([facility]) - Arrhythmia - Asthma - Cardiac syncope 02/05/2016 - Chronic obstructive pulmonary disease (COPD) ([facility]) - Congestive heart failure ([facility]) - Degenerative cervical disc 02/05/2011 - Diverticulosis of colon (without mention of hemorrhage) Diverticulosis - Family history of other specified malignant neoplasm FX HX COLON CA - GERD (gastroesophageal reflux disease) 06/27/2011 - Hypertension 08/09/2012 - Hypertrophy of prostate without urinary obstruction and other lower urinary tract symptoms (LUTS) - Inguinal hernia without mention of obstruction or gangrene, bilateral, (not specified as recurrent) - Lumbar disc disease with radiculopathy 02/10/2014 - Mental disorder - Moderate episode of recurrent major depressive disorder (HCC) 03/24/2017 - Osteoporosis 07/15/2011 - Other and unspecified hyperlipidemia Hyperlipidemia - Other congenital hamartoses, 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 - Peripheral vascular disease ([facility]) - Renal stone 09/05/2011 - Restless leg syndrome 07/30/2010 - Restless legs syndrome (RLS) 02/22/2015 - Tachy-bora syndrome (HCC) 11/19/2015 - Thyroid disorder - Unspecified functional disorder of intestine SPASTIC COLITIS - Unspecified hemorrhoids without mention of complication Hemorrhoids - Ventricular tachycardia (HCC) 06/28/13 flecainide - Vitamin D deficiency 07/17/2011 Current Outpatient Prescriptions on File Prior to Visit: omeprazole (PRILOSEC) 20 mg capsule TAKE 1 CAPSULE EVERY DAY ON AN EMPTY STOMACH flecainide (TAMBOCOR) 100 mg tablet Take 1 tablet by mouth twice daily. zolpidem (AMBIEN) 5 mg tablet Take 1 tablet by mouth at bedtime as needed for Sedation for up to 30 days. fluticasone (FLONASE) 50 mcg/actuation nasal spray Use 2 Sprays in each nostril once daily. Rinse mouth after use. tamsulosin ER (FLOMAX) 0.4 mg cp24 Take 1 capsule by mouth once daily. metoprolol succinate ER (TOPROL XL) 25 mg 24 hr tablet Take 1 tablet by mouth once daily. Pramipexole (MIRAPEX) 0.75 mg tablet Take 0.75 mg by mouth twice daily as needed. Cholecalciferol, Vitamin D3, 1,000 unit cap Take 1 capsule by mouth once daily. atorvastatin (LIPITOR) 10 mg tablet Take 1 tablet by mouth once daily. For cholesterol. (Patient not taking: Reported on 2018 ) albuterol (PROVENTIL) 5 mg/mL nebu Inhale 0.5 mL as instructed one time only for 1 dose. 1 DOSE NOW - BACK OFFICE. PLACE 0.5 ML PER DROPPER AND 2.5 ML OF NORMAL SALINE INTO RESERVOIR. Nebulizer NEBULIZER FOR HOME USE. (Patient not taking: Reported on 2018 ) albuterol (PROVENTIL) 2.5 mg /3 mL (0.083 %) nebulizer solution Use 3 mL via nebulizer every 4 hours as needed for Wheezing/Shortness of Breath. Use over 5-15minutes. (Patient not taking: Reported on 2018 ) sertraline (ZOLOFT) 50 mg tablet Take 2 tablets by mouth once daily. (Patient not taking: Reported on 11/19/2017 ) HYDROcodone-acetaminophen (NORCO) 5-325 mg per tablet Take 1-2 tablets by mouth every 6 hours as needed for Pain. (Patient not taking: Reported on 2018 ) No current facility-administered medications on file prior to visit. FAMILY HISTORY Problem Relation Age of Onset - Colon Cancer Father - Cancer Sister lung cancer - other (Parkinson's disease) Sister Social History Substance Use Topics - Smoking status: Former Smoker Packs/day: 0.10 Years: 2.00 Types: Cigarettes - Smokeless tobacco: Never Used Comment: 1975 - Alcohol use Yes Comment: occasionally BP 129/75 Pulse 71 Resp 16 Ht 176.5 cm (5' 9.5) Wt 69.9 kg (154 lb) BMI 22.42 kg/m? . OBJECTIVE: APPEARANCE Well appearing, alert, in no acute distress, well-hydrated, well nourished. and Appearance: well dressed well groomed, cooperative and pleasant Behavior: poor eye contact Speech: fluent and coherent Mood: depressed Affect: constricted Perceptions: none Thought process: goal directed Thought Content: normal Intelligence level: normal Insight: fair Judgment: fair ASSESSMENT: situational depression grieving paroxysmal atrial fibrillation BPH with outlet obstruction PLAN: healthy diet and stay active remain socially active and connected with family and friends same medications Butch Pulido III MD CNOV Observed: 2018 Status: COMPLETED Source: [place] 9:40 AM [facility] REPOSIT[facility] Office Visit ([facility]) Cat AHN ([id number]) 1945 M NF Date Time Provider Department 03/15/18 9:40 AM BUTCH PULIDO III During your visit today, we recorded the following information about you: Pulse Respiration Blood pressure Weight 71/minute 16/minute 129/75 69.9 kg Height 1.765 m Butch Pulido III MD 2018 12:32 PM Signed SUBJECTIVE: This is a 73 year old male that is here today for 1. med refills 2. discuss screening colonoscopy. States he is weak from colon prep. Father with colon cancer. Reviewed colonoscopy report from 02/2013=normal 3. past 3 mos he has been more tearful and emotional. Notes that he is grieving , anniversary, her birthday during past 3 mos. he is not suicidal, and experience December, and still has ambition to do things. He repeatedly refused to take a medication for depression. PAST MEDICAL HISTORY Diagnosis Date - A-fib (HCC) - Arrhythmia - Asthma - Cardiac syncope 02/05/2016 - Chronic obstructive pulmonary disease (COPD) ([facility]) - Congestive heart failure ([facility]) - Degenerative cervical disc 02/05/2011 - Diverticulosis of colon (without mention of hemorrhage) Diverticulosis - Family history of other specified malignant neoplasm FX HX COLON CA - GERD (gastroesophageal reflux disease) 06/27/2011 - Hypertension 08/09/2012 - Hypertrophy of prostate without urinary obstruction and other lower urinary tract symptoms (LUTS) - Inguinal hernia without mention of obstruction or gangrene, bilateral, (not specified as recurrent) - Lumbar disc disease with radiculopathy 02/10/2014 - Mental disorder - Moderate episode of recurrent major depressive disorder ([facility]) 03/24/2017 - Osteoporosis 07/15/2011 - Other and unspecified hyperlipidemia Hyperlipidemia - Other congenital hamartoses, 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 - Peripheral vascular disease ([facility]) - Renal stone 09/05/2011 - Restless leg syndrome 07/30/2010 - Restless legs syndrome (RLS) 02/22/2015 - Tachy-bora syndrome ([facility]) 11/19/2015 - Thyroid disorder - Unspecified functional disorder of intestine SPASTIC COLITIS - Unspecified hemorrhoids without mention of complication Hemorrhoids - Ventricular tachycardia ([facility]) 06/28/13 flecainide - Vitamin D deficiency 07/17/2011 Current Outpatient Prescriptions on File Prior to Visit: omeprazole (PRILOSEC) 20 mg capsule TAKE 1 CAPSULE EVERY DAY ON AN EMPTY STOMACH flecainide (TAMBOCOR) 100 mg tablet Take 1 tablet by mouth twice daily. zolpidem (AMBIEN) 5 mg tablet Take 1 tablet by mouth at bedtime as needed for Sedation for up to 30 days. fluticasone (FLONASE) 50 mcg/actuation nasal spray Use 2 Sprays in each nostril once daily. Rinse mouth after use. tamsulosin ER (FLOMAX) 0.4 mg cp24 Take 1 capsule by mouth once daily. metoprolol succinate ER (TOPROL XL) 25 mg 24 hr tablet Take 1 tablet by mouth once daily. Pramipexole (MIRAPEX) 0.75 mg tablet Take 0.75 mg by mouth twice daily as needed. Cholecalciferol, Vitamin D3, 1,000 unit cap Take 1 capsule by mouth once daily. atorvastatin (LIPITOR) 10 mg tablet Take 1 tablet by mouth once daily. For cholesterol. (Patient not taking: Reported on 2018 ) albuterol (PROVENTIL) 5 mg/mL nebu Inhale 0.5 mL as instructed one time only for 1 dose. 1 DOSE NOW - BACK OFFICE. PLACE 0.5 ML PER DROPPER AND 2.5 ML OF NORMAL SALINE INTO RESERVOIR. Nebulizer NEBULIZER FOR HOME USE. (Patient not taking: Reported on 2018 ) albuterol (PROVENTIL) 2.5 mg /3 mL (0.083 %) nebulizer solution Use 3 mL via nebulizer every 4 hours as needed for Wheezing/Shortness of Breath. Use over 5-15minutes. (Patient not taking: Reported on 2018 ) sertraline (ZOLOFT) 50 mg tablet Take 2 tablets by mouth once daily. (Patient not taking: Reported on 11/19/2017 ) HYDROcodone-acetaminophen (NORCO) 5-325 mg per tablet Take 1-2 tablets by mouth every 6 hours as needed for Pain. (Patient not taking: Reported on 2018 ) No current facility-administered medications on file prior to visit. FAMILY HISTORY Problem Relation Age of Onset - Colon Cancer Father - Cancer Sister lung cancer - other (Parkinson's disease) Sister Social History Substance Use Topics - Smoking status: Former Smoker Packs/day: 0.10 Years: 2.00 Types: Cigarettes - Smokeless tobacco: Never Used Comment: 1975 - Alcohol use Yes Comment: occasionally BP 129/75 Pulse 71 Resp 16 Ht 176.5 cm (5' 9.5) Wt 69.9 kg (154 lb) BMI 22.42 kg/m? . OBJECTIVE: APPEARANCE Well appearing, alert, in no acute distress, well- hydrated, well nourished. and Appearance: well dressed well groomed, cooperative and pleasant Behavior: poor eye contact Speech: fluent and coherent Mood: depressed Affect: constricted Perceptions: none Thought process: goal directed Thought Content: normal Intelligence level: normal Insight: fair Judgment: fair ASSESSMENT: situational depression grieving paroxysmal atrial fibrillation BPH with outlet obstruction PLAN: healthy diet and stay active remain socially active and connected with family and friends same medications SANIA Ramon MD, III MD 2018 10:19 AM Signed PLAN: healthy diet and stay active remain socially active and connected with family and friends same medications Butch Pulido III MD Referring Provider: BUTCH PULIDO III [[id number]] Allergies As of Date: 2018 (No Known Allergies) Date Reviewed: 2018 Reviewed by: Suni ([facility]) KITTY Dominguez - Fully Assessed Reason for Visit: 6 month check up [Other] Primary Visit Diagnosis:Grieving [F43.21] Other Visit Diagnoses:History of atrial fibrillation [Z86.79] Ventricular tachycardia (HCC) [I47.2] Sinus node dysfunction (HCC) [I49.5] Paroxysmal atrial fibrillation (HCC) [I48.0] Moderate episode of recurrent major depressive disorder (HCC) [F33.1] Screening for colon cancer [Z12.11] Order(s):metoprolol succinate ER (TOPROL XL) 25 mg 24 hr tabletTake 1 tablet by mouth once daily.Disp: 90 tabletRfl: 3 flecainide (TAMBOCOR) 100 mg tabletTake 1 tablet by mouth twice daily.Disp: 180 tabletRfl: 3 tamsulosin ER (FLOMAX) 0.4 mg capTake 1 capsule by mouth once daily.Disp: 90 capsuleRfl: 3 CONSULT TO GENERAL SURGERY [9011] Order #: [id number]: 1 Prescriptions as of 2018 Sig: METOPROLOL SUCCINATE ER 25 MG* Take 1 tablet by mouth once d* FLECAINIDE 100 MG TABLET Take 1 tablet by mouth twice * TAMSULOSIN 0.4 MG CAPSULE Take 1 capsule by mouth once * OMEPRAZOLE 20 MG CAPSULE,CHATA* TAKE 1 CAPSULE EVERY DAY ON A* ZOLPIDEM 5 MG TABLET Take 1 tablet by mouth at bed* FLUTICASONE 50 MCG/ACTUATION * Use 2 Sprays in each nostril * PRAMIPEXOLE 0.75 MG TABLET Take 0.75 mg by mouth twice d* CHOLECALCIFEROL (VITAMIN D3) * Take 1 capsule by mouth once * More... More... More... Problem List As Of Date 2018 Noted Resolved Unspecified functional disorder of intestine [K* 2018 More... FAMILY HX-MALIGNANCY NEC [Z80.8] More... Inguinal hernia without mention of obstruction * 06/06/2014 ESOPHAGEAL REFLUX [K21.9] INVALID FOR* ANXIETY STATE NOS [F41.1] INVALID FOR* Disorders of bursae and tendons in shoulder reg*INVALID FOR*07/10/2016 HEMORRHOIDS EXTERNAL THROMBOSED [K64.5] INVALID FOR*07/10/2016 MITRAL/AORTIC FAB INSUFF [I08.0] INVALID FOR*10/20/2007 BPH with obstruction/lower urinary tract sympto*INVALID FOR* HYPERTONICITY OF BLADDER [N31.8] INVALID FOR* Chest pain, unspecified [R07.9] INVALID FOR*07/10/2016 LUMB/LUMBOSAC DISC DEGEN [M51.37] INVALID FOR* Skin Cancer of Anterior Chest [C44.519] INVALID FOR* Restless leg syndrome [G25.81] INVALID FOR* Degenerative cervical disc [M50.30] INVALID FOR* GERD (gastroesophageal reflux disease) [K21.9] INVALID FOR* Osteoporosis [M81.0] INVALID FOR* Vitamin D deficiency [E55.9] INVALID FOR* Renal stone [N20.0] INVALID FOR* Erectile dysfunction [N52.9] INVALID FOR* Testalgia [N50.819] INVALID FOR*07/10/2016 Noncompliance [Z91.19] INVALID FOR*06/06/2014 Paroxysmal atrial fibrillation (HCC) [I48.0] INVALID FOR* Priority: A More... Congestive heart failure (HCC) [I50.9] INVALID FOR*06/06/2014 More... 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 Mitral valve regurgitation [I34.0] INVALID FOR* Priority: A More... Hyperlipidemia [E78.5] INVALID FOR* Priority: E More... More... More... Mechanically assisted ventilation [Z99.11] INVALID FOR*08/07/2012 Priority: B More... Stress hyperglycemia [R73.9] INVALID FOR*06/06/2014 Priority: E More... Atelectasis [J98.11] INVALID FOR*06/06/2014 Priority: B More... Hypotension, unspecified [I95.9] INVALID FOR*08/09/2012 Priority: C More... Hypertension [I10] INVALID FOR* Priority: D More... More... SUMMARY [V999.95] INVALID FOR* Priority: Mild More... Leukocytosis [D72.829] INVALID FOR*2018 Priority: D More... Multiple thyroid nodules [E04.2] INVALID FOR* History of atrial fibrillation [Z86.79] INVALID FOR* DDD (degenerative disc disease), cervical [M50.*INVALID FOR* S/P cervical spinal fusion [Z98.1] INVALID FOR* Cervical strain [S16.1XXA] INVALID FOR*2018 Myofascial pain [M79.18] INVALID FOR*2018 Nonsustained ventricular tachycardia (HCC) [I47*INVALID FOR*06/06/2014 Near syncope [R55] INVALID FOR*06/06/2014 S/P mitral valve repair [Z98.890] INVALID FOR* Ventricular tachycardia [I47.2] INVALID FOR* Lumbar disc disease with radiculopathy [M51.16] INVALID FOR*2018 Hip arthritis [M16.10] INVALID FOR*2018 Prostate cancer (HCC) [C61] INVALID FOR* Displacement of lumbar intervertebral disc with*INVALID FOR*2018 Elevated prostate specific antigen (PSA) [R97.2*INVALID FOR* Situational depression [F43.21] INVALID FOR*2018 Restless legs syndrome (RLS) [G25.81] INVALID FOR* IT band syndrome [M76.30] INVALID FOR*11/19/2015 Tachy-bora syndrome (HCC) [I49.5] INVALID FOR* History of lumbar surgery [Z98.890] INVALID FOR* Lumbar facet arthropathy (HCC) [M47.816] INVALID FOR* Trochanteric bursitis of left hip [M70.62] INVALID FOR*2018 Sinus node dysfunction (HCC) [I49.5] INVALID FOR* Cardiac syncope [R55] INVALID FOR* Impaired swallowing [R13.10] INVALID FOR* Moderate episode of recurrent major depressive *INVALID FOR* Other instructions from your clinician: PLAN: healthy diet and stay active remain socially active and connected with family and friends same medications Butch Pulido III MD Prescriptions ordered this encounter Disp Refills Start End METOPROLOL SUCCINATE ER 25 MG TABLET* 90 t* 3 2018 Route: ORAL Sig: Take 1 tablet by mouth once daily. FLECAINIDE 100 MG TABLET 180 * 3 2018 Route: ORAL Sig: Take 1 tablet by mouth twice daily. TAMSULOSIN 0.4 MG CAPSULE 90 c* 3 2018 Route: ORAL Sig: Take 1 capsule by mouth once daily. Medications Discontinued During This Encounter atorvastatin (LIPITOR) 10 mg tablet 90 t* 3 09/11/2017 2018 Route: ORAL Sig: Take 1 tablet by mouth once daily. For cholesterol. Patient not taking: Reported on 2018 Disc: Discontinued by Patient HYDROcodone-acetaminophen (NORCO) 5-* 50 t* 0 01/01/2016 2018 Class: Print RX Route: ORAL Sig: Take 1-2 tablets by mouth every 6 hours as needed for Pain. Patient not taking: Reported on 2018 Disc: Course of therapy completed sertraline (ZOLOFT) 50 mg tablet 270 * 3 07/16/2017 2018 Class: Med Update Route: ORAL Sig: Take 2 tablets by mouth once daily. Patient not taking: Reported on 11/19/2017 Disc: Course of therapy completed Nebulizer 1 Kit 0 08/03/2017 2018 Class: Print RX Sig: NEBULIZER FOR HOME USE. Patient not taking: Reported on 2018 Disc: Course of therapy completed albuterol (PROVENTIL) 2.5 mg /3 mL (* 1 Pa* 0 08/03/2017 2018 Route: NEBULIZATION -UNSPEC Sig: Use 3 mL via nebulizer every 4 hours as needed for Wheezing/Shortness of Breath. Use over 5-15minutes. Patient not taking: Reported on 2018 Disc: Course of therapy completed albuterol (PROVENTIL) 5 mg/mL nebu 0.5 * 0 08/03/2017 2018 Class: Back Office Route: INHALATION Sig: Inhale 0.5 mL as instructed one time only for 1 dose. 1 DOSE NOW - BACK OFFICE. PLACE 0.5 ML PER DROPPER AND 2.5 ML OF NORMAL SALINE INTO RESERVOIR. Disc: Course of therapy completed metoprolol succinate ER (TOPROL XL) * 90 t* 3 03/24/2017 2018 Class: [employer] Route: ORAL Sig: Take 1 tablet by mouth once daily. Disc: Reason for discontinue is not on file. flecainide (TAMBOCOR) 100 mg tablet 180 * 1 11/10/2017 2018 Class: [employer] Route: ORAL Sig: Take 1 tablet by mouth twice daily. Disc: Reason for discontinue is not on file. tamsulosin ER (FLOMAX) 0.4 mg cp24 90 c* 3 04/23/2017 2018 Class: [employer] Route: ORAL Sig: Take 1 capsule by mouth once daily. Disc: Reason for discontinue is not on file. Encounter Status:Closed by BUTCH PULIDO III, MD on 03/15/18 PROGRESS Observed: 12/24/2017 Status: COMPLETED Source: [place] 9:55 AM [facility] ID: [id number] Author: Rani Lazo (Agniezska Mattson Service: (none) Author Type: Nurse Practitioner Type: Progress Notes Filed: 12/24/2017 10:42 AM Note Text: SUBJECTIVE: Cat Ahn presents to [facility] for a followup appointment for staus post injection and right shoulder pain. Since the last visit, Cat Ahn states the pain has been staying about the same. Current pain intensity is 6 on a scale of 0-10. Pain located in Back and Right shoulder area and radiates down the posterior leg. Pain described as aching The patient Reports weakness and morning stiffness. Symptoms interfere with physical activity. Pain is exacerbated by standing, lifting, getting up from sitting and walking. Pain is mitigated by medications and ice . The patient is overall improved with the injections by 90%. REVIEW OF SYSTEMS: Constitutional: (-) Fever (-) Night Sweats (-) Weight Gain (-) Weight Loss (+) Fatigue Cardiovascular: (-) Chest Pain (-) Palpitations (-) Lightheadedness (-) Swelling of Ankles (-) Hx Heart Surgery Respiratory: (-) Shortness of Breath (-) Cough (-) Wheezing (+) Snoring Gastrointestinal: (-) Incontinence (-) Abdominal Pain (-) Diarrhea (-) Constipation (-) Nausea/Vomiting (+) Heart Burn Endocrine: (+) Thyroid Disorder (-) Diabetes Hematologic: (-) Prolonged Bleeding (-) Easy Bruising Genitourinary: (-) Incontinence (-) Frequency (-) Urinary Urgency Skin: (-) Rashes (-) Itching (-) Other Lesions Neurologic: (-) Headache (-) Double Vision (-) Confusion (-) Paralysis Psychiatric: (+) Depression (-) Anxiety (-) Delusions (-) Hallucinations (-) Personal History of Alcohol or Substance Abuse (-) Family History of Alcohol or Substance Abuse OBJECTIVE: Pulse 84 Wt 161 lb (73.0kg) SpO2 97% PHYSICAL EXAMINATION: General appearance: Well appearing, in no acute distress, alert Skin: Skin color, texture, turgor normal, no rashes or lesions Neck: No pain to palpation over the cervical paraspinous muscles. No pain with neck flexion, extension, or lateral flexion Cardiovascular: Regular rate Lungs: Normal respiratory rate and rhythm Abdomen: Abdomen soft and non-tender. Back: Intact range of motion with mild pain reproduction. Spine: Reports Tenderness on palpation: Lumbar/Pelvic, axial Extremities: No deformities, edema, or skin discoloration. Good capillary refill. Musculoskeletal: Bilateral upper and lower extremity strength is normal and symmetric. No atrophy or tone abnormalities are noted. Neuro: No loss of sensation is noted. Station and Gait: antalgic gait Motor: Exhibits full strength in all four extremities. Trigger points: right periscapular muscles. ASSESSMENT: Assessment : Pt reports lower back pain that radiates intermittently left lateral LE to mid thigh He is experiencing right periscapular muscle spasms with pain that radiates into the right shoulder. He has taken baclofen to help with the spasms Pt reports he had a TPI in the periscapular region in 2011 which was very helpful. It pain persists he would like to have repeated He had a bilateral L4,5,S1 facet injection in 05-14-2017 with great results. He is going to try and wait to repeat the facet injection. Encounter Diagnosis ICD-10-CM 1. Displacement of lumbar intervertebral disc without myelopathy M51.26 HYDROcodone-acetaminophen (NORCO) 5-325 mg per tablet 2. Lumbar disc disease with radiculopathy M51.16 HYDROcodone-acetaminophen (NORCO) 5-325 mg per tablet 3. Lumbar facet arthropathy (HCC) M46.96 HYDROcodone-acetaminophen (NORCO) 5-325 mg per tablet OARRS website checked and validated. All prescriptions have been APPROPRIATELY filled. No suspicious activity was identified.- 12/24/2017 by Tabitha Vasquez MA Narcotic Agreement reviewed and signed?: N/A on December 24, 2017 The pain panel was N/A PLAN: 1) Short rx for norco 5/325 mg #12 pills for acute exacerbation of pain 2) Continue baclofen 10 mg prn for muscle spams 3) Pt remains active as pain is tolerated 4) Pt will call to schedule an appt with Andreas Burgos for TPI if pain is persistent in the right scapular region 5) RTC 6 months The above plan and management options were discussed at length with patient. Patient is in agreement with the above and verbalized understanding. Rani Mattson APRN, CNP December 24, 2017 CNOV Observed: 12/24/2017 Status: COMPLETED Source: [place] 9:40 AM [facility] Office Visit (PNMDNA) Cat AHN ([id number]) 1945 M NFR Date Time Provider Department 12/24/17 9:40 AM RANI MATTSON (LUIS F) FELIPE During your visit today, we recorded the following information about you: Pulse Weight 84/minute 73 kg Rani Mattson APRN.LUIS F 12/24/2017 10:42 AM Signed SUBJECTIVE: Cat Ahn presents to [facility] for a followup appointment for staus post injection and right shoulder pain. Since the last visit, Cat Jose Carlos states the pain has been staying about the same. Current pain intensity is 6 on a scale of 0-10. Pain located in Back and Right shoulder area and radiates down the posterior leg. Pain described as aching The patient Reports weakness and morning stiffness. Symptoms interfere with physical activity. Pain is exacerbated by standing, lifting, getting up from sitting and walking. Pain is mitigated by medications and ice . The patient is overall improved with the injections by 90%. REVIEW OF SYSTEMS: Constitutional: (-) Fever (-) Night Sweats (-) Weight Gain (-) Weight Loss (+) Fatigue Cardiovascular: (-) Chest Pain (-) Palpitations (-) Lightheadedness (-) Swelling of Ankles (-) Hx Heart Surgery Respiratory: (-) Shortness of Breath (-) Cough (-) Wheezing (+) Snoring Gastrointestinal: (-) Incontinence (-) Abdominal Pain (-) Diarrhea (-) Constipation (-) Nausea/Vomiting (+) Heart Burn Endocrine: (+) Thyroid Disorder (-) Diabetes Hematologic: (-) Prolonged Bleeding (-) Easy Bruising Genitourinary: (-) Incontinence (-) Frequency (-) Urinary Urgency Skin: (-) Rashes (-) Itching (-) Other Lesions Neurologic: (-) Headache (-) Double Vision (-) Confusion (-) Paralysis Psychiatric: (+) Depression (-) Anxiety (-) Delusions (-) Hallucinations (-) Personal History of Alcohol or Substance Abuse (-) Family History of Alcohol or Substance Abuse OBJECTIVE: Pulse 84 Wt 161 lb (73.0kg) SpO2 97% PHYSICAL EXAMINATION: General appearance: Well appearing, in no acute distress, alert Skin: Skin color, texture, turgor normal, no rashes or lesions Neck: No pain to palpation over the cervical paraspinous muscles. No pain with neck flexion, extension, or lateral flexion Cardiovascular: Regular rate Lungs: Normal respiratory rate and rhythm Abdomen: Abdomen soft and non-tender. Back: Intact range of motion with mild pain reproduction. Spine: Reports Tenderness on palpation: Lumbar/Pelvic, axial Extremities: No deformities, edema, or skin discoloration. Good capillary refill. Musculoskeletal: Bilateral upper and lower extremity strength is normal and symmetric. No atrophy or tone abnormalities are noted. Neuro: No loss of sensation is noted. Station and Gait: antalgic gait Motor: Exhibits full strength in all four extremities. Trigger points: right periscapular muscles. ASSESSMENT: Assessment : Pt reports lower back pain that radiates intermittently left lateral LE to mid thigh He is experiencing right periscapular muscle spasms with pain that radiates into the right shoulder. He has taken baclofen to help with the spasms Pt reports he had a TPI in the periscapular region in 2011 which was very helpful. It pain persists he would like to have repeated He had a bilateral L4,5,S1 facet injection in 05-14-2017 with great results. He is going to try and wait to repeat the facet injection. Encounter Diagnosis ICD-10-CM 1. Displacement of lumbar intervertebral disc without myelopathy M51.26 HYDROcodone-acetaminophen (NORCO) 5-325 mg per tablet 2. Lumbar disc disease with radiculopathy M51.16 HYDROcodone-acetaminophen (NORCO) 5-325 mg per tablet 3. Lumbar facet arthropathy (HCC) M46.96 HYDROcodone-acetaminophen (NORCO) 5-325 mg per tablet OARRS website checked and validated. All prescriptions have been APPROPRIATELY filled. No suspicious activity was identified.- 12/24/2017 by Tabitha Vasquez MA Narcotic Agreement reviewed and signed?: N/A on December 24, 2017 The pain panel was N/A PLAN: 1) Short rx for norco 5/325 mg #12 pills for acute exacerbation of pain 2) Continue baclofen 10 mg prn for muscle spams 3) Pt remains active as pain is tolerated 4) Pt will call to schedule an appt with Andreas Burgos for TPI if pain is persistent in the right scapular region 5) RTC 6 months The above plan and management options were discussed at length with patient. Patient is in agreement with the above and verbalized understanding. Rani Mattson APRN, DIRECTOR OF SAFETY AND SECURITY December 24, 2017 Referring Provider: SELF [200] Allergies As of Date: 12/24/2017 (No Known Allergies) Date Reviewed: 12/24/2017 Reviewed by: Tabitha Vasquez MA - Fully Assessed Reason for Visit: Established Patient [175] Post Injection [Other] Primary Visit Diagnosis:Displacement of lumbar intervertebral disc without myelopathy [M51.26] Other Visit Diagnoses:Lumbar disc disease with radiculopathy [M51.16] Lumbar facet arthropathy (HCC) [M46.96] Order(s):HYDROcodone-acetaminophen (NORCO) 5-325 mg per tabletTake 1 tablet by mouth every 6 hours as needed for up to 3 days.Disp: 12 tabletRfl: 0 Prescriptions as of 12/24/2017 Sig: FLECAINIDE 100 MG TABLET Take 1 tablet by mouth twice * ATORVASTATIN 10 MG TABLET Take 1 tablet by mouth once d* FLUTICASONE 50 MCG/ACTUATION * Use 2 Sprays in each nostril * COMPOUNDED PRESCRIPTION NEBULIZER FOR HOME USE. ALBUTEROL SULFATE 2.5 MG/3 ML* Use 3 mL via nebulizer every * TAMSULOSIN 0.4 MG CAPSULE Take 1 capsule by mouth once * METOPROLOL SUCCINATE ER 25 MG* Take 1 tablet by mouth once d* PRAMIPEXOLE 0.75 MG TABLET Take 0.75 mg by mouth twice d* OMEPRAZOLE 20 MG CAPSULE,CHATA* Take 1 capsule by mouth once * HYDROCODONE 5 MG-ACETAMINOPHE* Take 1-2 tablets by mouth daryn* CHOLECALCIFEROL (VITAMIN D3) * Take 1 capsule by mouth once * HYDROCODONE 5 MG-ACETAMINOPHE* Take 1 tablet by mouth every * ZOLPIDEM 5 MG TABLET Take 1 tablet by mouth at bed* ALBUTEROL SULFATE CONCENTRATE* Inhale 0.5 mL as instructed o* SERTRALINE 50 MG TABLET Take 2 tablets by mouth once * Patient not taking: Reported on 11/19/2017 More... More... More... Problem List As Of Date 12/24/2017 Noted Resolved FUNCT DIS INTESTINE NOS [K59.9] More... FAMILY HX-MALIGNANCY NEC [Z80.8] More... Inguinal hernia without mention of obstruction * 06/06/2014 ESOPHAGEAL REFLUX [K21.9] INVALID FOR* ANXIETY STATE NOS [F41.1] INVALID FOR* Disorders of bursae and tendons in shoulder reg*INVALID FOR*07/10/2016 HEMORRHOIDS EXTERNAL THROMBOSED [K64.5] INVALID FOR*07/10/2016 MITRAL/AORTIC FAB INSUFF [I08.0] INVALID FOR*10/20/2007 BPH with obstruction/lower urinary tract sympto*INVALID FOR* HYPERTONICITY OF BLADDER [N31.8] INVALID FOR* Chest pain, unspecified [R07.9] INVALID FOR*07/10/2016 LUMB/LUMBOSAC DISC DEGEN [M51.37] INVALID FOR* Skin Cancer of Anterior Chest [C44.519] INVALID FOR* Restless leg syndrome [G25.81] INVALID FOR* Degenerative cervical disc [M50.30] INVALID FOR* GERD (gastroesophageal reflux disease) [K21.9] INVALID FOR* Osteoporosis [M81.0] INVALID FOR* Vitamin D deficiency [E55.9] INVALID FOR* Renal stone [N20.0] INVALID FOR* Erectile dysfunction [N52.9] INVALID FOR* Testalgia [N50.819] INVALID FOR*07/10/2016 Noncompliance [Z91.19] INVALID FOR*06/06/2014 Atrial fibrillation [I48.91] INVALID FOR*06/06/2014 Priority: A More... Congestive heart failure (HCC) [I50.9] INVALID FOR*06/06/2014 More... 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 Mitral valve regurgitation [I34.0] INVALID FOR* Priority: A More... Hyperlipidemia [E78.5] INVALID FOR* Priority: E More... More... More... Mechanically assisted ventilation [Z99.11] INVALID FOR*08/07/2012 Priority: B More... Stress hyperglycemia [R73.9] INVALID FOR*06/06/2014 Priority: E More... Atelectasis [J98.11] INVALID FOR*06/06/2014 Priority: B More... Hypotension, unspecified [I95.9] INVALID FOR*08/09/2012 Priority: C More... Hypertension [I10] INVALID FOR* Priority: D More... More... SUMMARY [V999.95] INVALID FOR* Priority: Mild More... Leukocytosis [D72.829] INVALID FOR* Priority: D More... Multiple thyroid nodules [E04.2] INVALID FOR* History of atrial fibrillation [Z86.79] INVALID FOR* DDD (degenerative disc disease), cervical [M50.*INVALID FOR* S/P cervical spinal fusion [Z98.1] INVALID FOR* Cervical strain [S16.1XXA] INVALID FOR* Myofascial pain [M79.1] INVALID FOR* Nonsustained ventricular tachycardia (HCC) [I47*INVALID FOR*06/06/2014 Near syncope [R55] INVALID FOR*06/06/2014 S/P mitral valve repair [Z98.890] INVALID FOR* Ventricular tachycardia [I47.2] INVALID FOR* Lumbar disc disease with radiculopathy [M51.16] INVALID FOR* Hip arthritis [M16.10] INVALID FOR* Prostate cancer (HCC) [C61] INVALID FOR* Displacement of lumbar intervertebral disc with*INVALID FOR* Elevated prostate specific antigen (PSA) [R97.2*INVALID FOR* Situational depression [F43.21] INVALID FOR* Restless legs syndrome (RLS) [G25.81] INVALID FOR* IT band syndrome [M76.30] INVALID FOR*11/19/2015 Tachy-bora syndrome (HCC) [I49.5] INVALID FOR* History of lumbar surgery [Z98.890] INVALID FOR* Lumbar facet arthropathy (HCC) [M46.96] INVALID FOR* Trochanteric bursitis of left hip [M70.62] INVALID FOR* Sinus node dysfunction (HCC) [I49.5] INVALID FOR* Cardiac syncope [R55] INVALID FOR* Medication management [Z79.899] INVALID FOR* Impaired swallowing [R13.10] INVALID FOR* Moderate episode of recurrent major depressive *INVALID FOR* Prescriptions ordered this encounter Disp Refills Start End HYDROCODONE 5 MG-ACETAMINOPHEN 325 M* 12 t* 0 12/24/2017 12/27/2017 Class: Print RX Route: ORAL Sig: Take 1 tablet by mouth every 6 hours as needed for up to 3 days. Encounter Status:Closed by RANI MATTSON on 12/24/17 PROGRESS Observed: 11/20/2017 Status: COMPLETED Source: [place] 6:16 PM [facility] O ID: [id number] Author: Butch Pulido III Service: (none) Author Type: Physician Type: Progress Notes Filed: 11/20/2017 6:16 PM Note Text: Pritesh, The PSA value is actually lower than it was a month ago which would confirm my suspicion of benign disease. No further evaluation is required at this time Butch Pulido III, MD, FAAFP PSA, FREE Collected: 11/19/2017 Status: F Source: [place] 4:43 PM [facility] TYPE CODE TESTS RESULT OUT OF REFERENCE UNITS RANGE LAB PSA 0.00-2.59 ng/mL PSA, High Diagnostic 4.58 Result Comment: Total PSA test methodology used is the Electrochemiluminescence Immunoassay. For an individual patient, the significance of a PSA level should be interpreted in a broad clinical context, including age, race, family history, digital rectal exam, prostate size, results of prior te sting (prostate biopsy, free PSA, PCA3), and use of 5-alpha reductase inhibitors. Considering the high incidence of asymptomatic cancer in the general population that may not pose an ultimate risk to a patient, the decision to recommend urological evaluation or prostate biopsy should be individualized after consideration of all these factors. REFERENCE: Ruth Ann Hurtado M.D., M.P.H., Jamir Nunez M.D., Ph.D., Kevin Camargo M.D., Suni Brush, M.P.H., Allison Cho Sc.D. Effect of Verification Bias on Screening for Prostate Cancer by Measurement of Prostatic Specific Antigen. N Engl J Med 2003,349:335-42. LAB PSAPER % PSA, Percent Free 10 DO NOT ORDER FOR SUPERIOR ONLY Result Comment: Less than 11% suggestive of prostate cancer. Greater than 23% suggestive of benign condition. Performed By: #### PSATF #### [facility] [address] [place], [place] [address] PROGRESS Observed: 11/19/2017 Status: COMPLETED Source: [place] 4:13 PM [facility] HNO ID: [id number] Author: Butch Pulido III Service: (none) Author Type: Physician Type: Progress Notes Filed: 11/19/2017 4:37 PM Note Text: SUBJECTIVE: This is a 72 year old male that is here today for 1. lab review: PSA 5.61 in September, 4.50 in Apr 2016 Pt has seen urologist at [facility] and discussed tx plan for elevated psa. They mutually agreed to conservative course of observation. Pt states he has a good quality of active life, and he does not want any aggressive evaluation or treatment for the elevated psa. PAST MEDICAL HISTORY Diagnosis Date - A-fib (HCC) - Arrhythmia - Asthma - Cardiac syncope 02/05/2016 - Chronic obstructive pulmonary disease (COPD) (HCC) - Congestive heart failure (HCC) - Degenerative cervical disc 02/05/2011 - Diverticulosis of colon (without mention of hemorrhage) Diverticulosis - Family history of other specified malignant neoplasm FX HX COLON CA - GERD (gastroesophageal reflux disease) 06/27/2011 - Hypertension 08/09/2012 - Hypertrophy of prostate without urinary obstruction and other lower urinary tract symptoms (LUTS) - Inguinal hernia without mention of obstruction or gangrene, bilateral, (not specified as recurrent) - Lumbar disc disease with radiculopathy 02/10/2014 - Mental disorder - Moderate episode of recurrent major depressive disorder (HCC) 03/24/2017 - Osteoporosis 07/15/2011 - Other and unspecified hyperlipidemia Hyperlipidemia - Other congenital hamartoses, 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 atorvastatin (LIPITOR) 10 mg tablet Take 1 tablet by mouth once daily. For cholesterol. fluticasone (FLONASE) 50 mcg/actuation nasal spray Use 2 Sprays in each nostril once daily. Rinse mouth after use. Nebulizer NEBULIZER FOR HOME USE. albuterol (PROVENTIL) 2.5 mg /3 mL (0.083 %) nebulizer solution Use 3 mL via nebulizer every 4 hours as needed for Wheezing/Shortness of Breath. Use over 5-15minutes. tamsulosin ER (FLOMAX) 0.4 mg cp24 Take 1 capsule by mouth once daily. metoprolol succinate ER (TOPROL XL) 25 mg 24 hr tablet Take 1 tablet by mouth once daily. Pramipexole (MIRAPEX) 0.75 mg tablet Take 0.75 mg by mouth twice daily as needed. omeprazole (PRILOSEC) 20 mg capsule Take 1 capsule by mouth once daily. ON AN EMPTY STOMACH HYDROcodone-acetaminophen (NORCO) 5-325 mg per tablet Take 1-2 tablets by mouth every 6 hours as needed for Pain. Cholecalciferol, Vitamin D3, 1,000 unit cap Take 1 capsule by mouth once daily. zolpidem (AMBIEN) 5 mg tablet Take 1 tablet by mouth at bedtime as needed for Sedation for up to 30 days. albuterol (PROVENTIL) 5 mg/mL nebu Inhale 0.5 mL as instructed one time only for 1 dose. 1 DOSE NOW - BACK OFFICE. PLACE 0.5 ML PER DROPPER AND 2.5 ML OF NORMAL SALINE INTO RESERVOIR. sertraline (ZOLOFT) 50 mg tablet Take 2 tablets by mouth once daily. (Patient not taking: Reported on 11/19/2017 ) No current facility-administered medications on file prior to visit. FAMILY HISTORY Problem Relation Age of Onset - Colon Cancer Father - Cancer Sister lung cancer - Parkinson's disease [OTHER] Sister Social History Substance Use Topics - Smoking status: Former Smoker Packs/day: 0.10 Years: 2.00 Types: Cigarettes - Smokeless tobacco: Never Used Comment: 1975 - Alcohol use Yes Comment: occasionally BP 130/69 Pulse 70 Resp 16 Wt 74.8 kg (165 lb) BMI 24.02 kg/m? . OBJECTIVE: APPEARANCE Well appearing, alert, in no acute distress, well-hydrated, well nourished. Appearance: well dressed well groomed, cooperative and pleasant Behavior: good eye contact Speech: fluent and coherent Mood: euthymic Affect: appropriate Perceptions: none Thought process: goal directed Thought Content: normal Intelligence level: normal Insight: good Judgment: good Lab Results for Cat AHN ( ) as of 11/19/2017 16:16 Ref. Range 10/02/2017 11:00 PSA Latest Ref Range: 0.00 - 2.59 ng/mL 5.61 (H) ASSESSMENT: elevated psa--mild increase reactive depression--doing well PLAN: free PSA same medications return to office 6 mos and as needed plan for conservative treatment of prostate disease SANIA Ramon MD, III MD CNOV Observed: 11/19/2017 Status: COMPLETED Source: [place] 4:00 PM [facility] Office Visit (FAMPWS) CARLOSCat PRITESH ([id number]) 1945 M NFR Date Time Provider Department 11/19/17 4:00 PM BUTCH PULIDO III During your visit today, we recorded the following information about you: Pulse Respiration Blood pressure Weight 70/minute 16/minute 130/69 74.8 kg Butch Pulido III MD 11/19/2017 4:37 PM Signed SUBJECTIVE: This is a 72 year old male that is here today for 1. lab review: PSA 5.61 in September, 4.50 in Apr 2016 Pt has seen urologist at [facility] and discussed tx plan for elevated psa. They mutually agreed to conservative course of observation. Pt states he has a good quality of active life, and he does not want any aggressive evaluation or treatment for the elevated psa. PAST MEDICAL HISTORY Diagnosis Date - A-fib ([facility]) - Arrhythmia - Asthma - Cardiac syncope 02/05/2016 - Chronic obstructive pulmonary disease (COPD) ([facility]) - Congestive heart failure ([facility]) - Degenerative cervical disc 02/05/2011 - Diverticulosis of colon (without mention of hemorrhage) Diverticulosis - Family history of other specified malignant neoplasm FX HX COLON CA - GERD (gastroesophageal reflux disease) 06/27/2011 - Hypertension 08/09/2012 - Hypertrophy of prostate without urinary obstruction and other lower urinary tract symptoms (LUTS) - Inguinal hernia without mention of obstruction or gangrene, bilateral, (not specified as recurrent) - Lumbar disc disease with radiculopathy 02/10/2014 - Mental disorder - Moderate episode of recurrent major depressive disorder ([facility]) 03/24/2017 - Osteoporosis 07/15/2011 - Other and unspecified hyperlipidemia Hyperlipidemia - Other congenital hamartoses, 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 atorvastatin (LIPITOR) 10 mg tablet Take 1 tablet by mouth once daily. For cholesterol. fluticasone (FLONASE) 50 mcg/actuation nasal spray Use 2 Sprays in each nostril once daily. Rinse mouth after use. Nebulizer NEBULIZER FOR HOME USE. albuterol (PROVENTIL) 2.5 mg /3 mL (0.083 %) nebulizer solution Use 3 mL via nebulizer every 4 hours as needed for Wheezing/Shortness of Breath. Use over 5-15minutes. tamsulosin ER (FLOMAX) 0.4 mg cp24 Take 1 capsule by mouth once daily. metoprolol succinate ER (TOPROL XL) 25 mg 24 hr tablet Take 1 tablet by mouth once daily. Pramipexole (MIRAPEX) 0.75 mg tablet Take 0.75 mg by mouth twice daily as needed. omeprazole (PRILOSEC) 20 mg capsule Take 1 capsule by mouth once daily. ON AN EMPTY STOMACH HYDROcodone-acetaminophen (NORCO) 5-325 mg per tablet Take 1-2 tablets by mouth every 6 hours as needed for Pain. Cholecalciferol, Vitamin D3, 1,000 unit cap Take 1 capsule by mouth once daily. zolpidem (AMBIEN) 5 mg tablet Take 1 tablet by mouth at bedtime as needed for Sedation for up to 30 days. albuterol (PROVENTIL) 5 mg/mL nebu Inhale 0.5 mL as instructed one time only for 1 dose. 1 DOSE NOW - BACK OFFICE. PLACE 0.5 ML PER DROPPER AND 2.5 ML OF NORMAL SALINE INTO RESERVOIR. sertraline (ZOLOFT) 50 mg tablet Take 2 tablets by mouth once daily. (Patient not taking: Reported on 11/19/2017 ) No current facility-administered medications on file prior to visit. FAMILY HISTORY Problem Relation Age of Onset - Colon Cancer Father - Cancer Sister lung cancer - Parkinson's disease [OTHER] Sister Social History Substance Use Topics - Smoking status: Former Smoker Packs/day: 0.10 Years: 2.00 Types: Cigarettes - Smokeless tobacco: Never Used Comment: 1975 - Alcohol use Yes Comment: occasionally BP 130/69 Pulse 70 Resp 16 Wt 74.8 kg (165 lb) BMI 24.02 kg/m? . OBJECTIVE: APPEARANCE Well appearing, alert, in no acute distress, well- hydrated, well nourished. Appearance: well dressed well groomed, cooperative and pleasant Behavior: good eye contact Speech: fluent and coherent Mood: euthymic Affect: appropriate Perceptions: none Thought process: goal directed Thought Content: normal Intelligence level: normal Insight: good Judgment: good Lab Results for Cat AHN ( ) as of 11/19/2017 16:16 Ref. Range 10/02/2017 11:00 PSA Latest Ref Range: 0.00 - 2.59 ng/mL 5.61 (H) ASSESSMENT: elevated psa--mild increase reactive depression--doing well PLAN: free PSA same medications return to office 6 mos and as needed plan for conservative treatment of prostate disease SANIA Ramon MD, III MD Frank A Cebul, III MD 11/19/2017 4:35 PM Signed PLAN: free PSA same medications return to office 6 mos and as needed plan for conservative treatment of prostate disease Butch Pulido III MD Referring Provider: SELF [200] Allergies As of Date: 11/19/2017 (No Known Allergies) Date Reviewed: 11/19/2017 Reviewed by: Suni ([facility]) KITTY Dominguez - Fully Assessed Reason for Visit: Review labs [Other] Primary Visit Diagnosis:BPH with obstruction/lower urinary tract symptoms [N40.1, N13.8] Other Visit Diagnosis:Situational depression [F43.21] Order(s):PSA FREE [SQPSATF] Order #: [id number] FUTURE Prescriptions as of 11/19/2017 Sig: FLECAINIDE 100 MG TABLET Take 1 tablet by mouth twice * ATORVASTATIN 10 MG TABLET Take 1 tablet by mouth once d* FLUTICASONE 50 MCG/ACTUATION * Use 2 Sprays in each nostril * COMPOUNDED PRESCRIPTION NEBULIZER FOR HOME USE. ALBUTEROL SULFATE 2.5 MG/3 ML* Use 3 mL via nebulizer every * TAMSULOSIN 0.4 MG CAPSULE Take 1 capsule by mouth once * METOPROLOL SUCCINATE ER 25 MG* Take 1 tablet by mouth once d* PRAMIPEXOLE 0.75 MG TABLET Take 0.75 mg by mouth twice d* OMEPRAZOLE 20 MG CAPSULE,CHATA* Take 1 capsule by mouth once * HYDROCODONE 5 MG-ACETAMINOPHE* Take 1-2 tablets by mouth daryn* CHOLECALCIFEROL (VITAMIN D3) * Take 1 capsule by mouth once * ZOLPIDEM 5 MG TABLET Take 1 tablet by mouth at bed* ALBUTEROL SULFATE CONCENTRATE* Inhale 0.5 mL as instructed o* SERTRALINE 50 MG TABLET Take 2 tablets by mouth once * Patient not taking: Reported on 11/19/2017 More... More... More... Problem List As Of Date 11/19/2017 Noted Resolved FUNCT DIS INTESTINE NOS [K59.9] More... FAMILY HX-MALIGNANCY NEC [Z80.8] More... Inguinal hernia without mention of obstruction * 06/06/2014 ESOPHAGEAL REFLUX [K21.9] INVALID FOR* ANXIETY STATE NOS [F41.1] INVALID FOR* Disorders of bursae and tendons in shoulder reg*INVALID FOR*07/10/2016 HEMORRHOIDS EXTERNAL THROMBOSED [K64.5] INVALID FOR*07/10/2016 MITRAL/AORTIC FAB INSUFF [I08.0] INVALID FOR*10/20/2007 BPH with obstruction/lower urinary tract sympto*INVALID FOR* HYPERTONICITY OF BLADDER [N31.8] INVALID FOR* Chest pain, unspecified [R07.9] INVALID FOR*07/10/2016 LUMB/LUMBOSAC DISC DEGEN [M51.37] INVALID FOR* Skin Cancer of Anterior Chest [C44.519] INVALID FOR* Restless leg syndrome [G25.81] INVALID FOR* Degenerative cervical disc [M50.30] INVALID FOR* GERD (gastroesophageal reflux disease) [K21.9] INVALID FOR* Osteoporosis [M81.0] INVALID FOR* Vitamin D deficiency [E55.9] INVALID FOR* Renal stone [N20.0] INVALID FOR* Erectile dysfunction [N52.9] INVALID FOR* Testalgia [N50.819] INVALID FOR*07/10/2016 Noncompliance [Z91.19] INVALID FOR*06/06/2014 Atrial fibrillation [I48.91] INVALID FOR*06/06/2014 Priority: A More... Congestive heart failure (HCC) [I50.9] INVALID FOR*06/06/2014 More... 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 Mitral valve regurgitation [I34.0] INVALID FOR* Priority: A More... Hyperlipidemia [E78.5] INVALID FOR* Priority: E More... More... More... Mechanically assisted ventilation [Z99.11] INVALID FOR*08/07/2012 Priority: B More... Stress hyperglycemia [R73.9] INVALID FOR*06/06/2014 Priority: E More... Atelectasis [J98.11] INVALID FOR*06/06/2014 Priority: B More... Hypotension, unspecified [I95.9] INVALID FOR*08/09/2012 Priority: C More... Hypertension [I10] INVALID FOR* Priority: D More... More... SUMMARY [V999.95] INVALID FOR* Priority: Mild More... Leukocytosis [D72.829] INVALID FOR* Priority: D More... Multiple thyroid nodules [E04.2] INVALID FOR* History of atrial fibrillation [Z86.79] INVALID FOR* DDD (degenerative disc disease), cervical [M50.*INVALID FOR* S/P cervical spinal fusion [Z98.1] INVALID FOR* Cervical strain [S16.1XXA] INVALID FOR* Myofascial pain [M79.1] INVALID FOR* Nonsustained ventricular tachycardia (HCC) [I47*INVALID FOR*06/06/2014 Near syncope [R55] INVALID FOR*06/06/2014 S/P mitral valve repair [Z98.890] INVALID FOR* Ventricular tachycardia [I47.2] INVALID FOR* Lumbar disc disease with radiculopathy [M51.16] INVALID FOR* Hip arthritis [M16.10] INVALID FOR* Prostate cancer (HCC) [C61] INVALID FOR* Lumbago [M54.5] INVALID FOR* Displacement of lumbar intervertebral disc with*INVALID FOR* Elevated prostate specific antigen (PSA) [R97.2*INVALID FOR* Nocturia [R35.1] INVALID FOR* Situational depression [F43.21] INVALID FOR* Restless legs syndrome (RLS) [G25.81] INVALID FOR* IT band syndrome [M76.30] INVALID FOR*11/19/2015 Tachy-bora syndrome (HCC) [I49.5] INVALID FOR* History of lumbar surgery [Z98.890] INVALID FOR* Lumbar facet arthropathy (HCC) [M46.96] INVALID FOR* Trochanteric bursitis of left hip [M70.62] INVALID FOR* Pain in left hip [M25.552] INVALID FOR* Sinus node dysfunction (HCC) [I49.5] INVALID FOR* Cardiac syncope [R55] INVALID FOR* Medication management [Z79.899] INVALID FOR* Impaired swallowing [R13.10] INVALID FOR* Moderate episode of recurrent major depressive *INVALID FOR* Dysphagia, unspecified [R13.10] INVALID FOR* Other instructions from your clinician: PLAN: free PSA same medications return to office 6 mos and as needed plan for conservative treatment of prostate disease Butch Pulido III MD Encounter Status:Closed by BUTCH PULIDO III, MD on 11/19/17 PSA, DIAGNOSTIC Collected: 10/02/2017 Status: F Source: [place] 11:00 AM [facility] REPOSITORY TYPE CODE TESTS RESULT OUT OF REFERENCE UNITS RANGE LAB PSA 0.00-2.59 ng/mL PSA, High Diagnostic 5.61 Result Comment: Total PSA test methodology used is the Electrochemiluminescence Immunoassay. For an individual patient, the significance of a PSA level should be interpreted in a broad clinical context, including age, race, family history, digital rectal exam, prostate size, results of prior te sting (prostate biopsy, free PSA, PCA3), and use of 5-alpha reductase inhibitors. Considering the high incidence of asymptomatic cancer in the general population that may not pose an ultimate risk to a patient, the decision to recommend urological evaluation or prostate biopsy should be individualized after consideration of all these factors. REFERENCE: Ruth Ann Hurtado M.D., M.P.H., Jamir Nunez M.D., Ph.D., Kevin Camargo M.D., Suni Brush, M.P.H., Allison Cho Sc.D. Effect of Verification Bias on Screening for Prostate Cancer by Measurement of Prostatic Specific Antigen. N Engl J Med 2003,349:335-42. Performed By: #### PSA #### [facility] [address] [place], [place] [address] PROGRESS Observed: 10/02/2017 Status: COMPLETED Source: [place] 10:32 AM [facility] REPOSITORY HNO ID: [id number] Author: William Garcia (Pa) Service: (none) Author Type: Physician Digital Community Manager Type: Progress Notes Filed: 10/12/2017 10:57 AM Note Text: [facility] CC: Prostate Cancer Follow-up HPI: This is a 72 year old male, with a Adenocarcinoma of Prostate with recent PSA of 5.61, patient has not been following with PSA since he diagnosis on biopsy 05/2014 He had been dealing with his ill and had not remembered to follow up with PSA , last PSA in 04/2016 - 4.5 He will have a PSA today and I will make recommendation based on that new PSA PATHOLOGY: DATE: 05/2014 FINAL DIAGNOSIS 1. Prostate, right base lateral, biopsy (A) - Focal high-grade prostatic intraepithelial neoplasia. 2. Prostate, right mid lateral, biopsy (B) - Benign prostatic tissue. 3. Prostate, right apex lateral, biopsy (C) - Small focus of atypical glands. 4. Prostate, right base medial, biopsy (D) - High-grade prostatic intraepithelial neoplasia. 5. Prostate, right mid medial, biopsy (E) - High-grade prostatic intraepithelial neoplasia. 6. Prostate, right apex medial, biopsy (F) - Benign fibromuscular tissue. - No prostatic glands identified. 7. Prostate, left base lateral, biopsy (G) - High-grade prostatic intraepithelial neoplasia with an adjacent small focus of atypical glands. 8. Prostate, left mid lateral, biopsy (H) - Focal high-grade prostatic intraepithelial neoplasia. 9. Prostate, left apex lateral, biopsy (I) - Benign prostatic tissue. 10. Prostate, left base medial, biopsy (J) - Benign prostatic tissue. 11. Prostate, left mid medial, biopsy (K) - Benign prostatic tissue. 12. Prostate, left apex medial, biopsy (L) - Adenocarcinoma of the prostate, Pranay score 3+3=6, involving one of one core (15%, less than 1 mm). LAB: PSA (ng/mL) Date Value 10/02/2017 5.61 04/29/2016 4.50 09/27/2015 4.02 06/15/2015 4.56 ALLERGY ALLERGIES No Known Allergies MEDICATIONS: zolpidem (AMBIEN) 5 mg tablet Take 1 tablet by mouth at bedtime as needed for Sedation for up to 30 days. atorvastatin (LIPITOR) 10 mg tablet Take 1 tablet by mouth once daily. For cholesterol. fluticasone (FLONASE) 50 mcg/actuation nasal spray Use 2 Sprays in each nostril once daily. Rinse mouth after use. albuterol (PROVENTIL) 5 mg/mL nebu Inhale 0.5 mL as instructed one time only for 1 dose. 1 DOSE NOW - BACK OFFICE. PLACE 0.5 ML PER DROPPER AND 2.5 ML OF NORMAL SALINE INTO RESERVOIR. Nebulizer NEBULIZER FOR HOME USE. albuterol (PROVENTIL) 2.5 mg /3 mL (0.083 %) nebulizer solution Use 3 mL via nebulizer every 4 hours as needed for Wheezing/Shortness of Breath. Use over 5-15minutes. flecainide (TAMBOCOR) 100 mg tablet Take 1 tablet by mouth twice daily. sertraline (ZOLOFT) 50 mg tablet Take 2 tablets by mouth once daily. tamsulosin ER (FLOMAX) 0.4 mg cp24 Take 1 capsule by mouth once daily. metoprolol succinate ER (TOPROL XL) 25 mg 24 hr tablet Take 1 tablet by mouth once daily. Pramipexole (MIRAPEX) 0.75 mg tablet Take 0.75 mg by mouth twice daily as needed. omeprazole (PRILOSEC) 20 mg capsule Take 1 capsule by mouth once daily. ON AN EMPTY STOMACH HYDROcodone-acetaminophen (NORCO) 5-325 mg per tablet Take 1-2 tablets by mouth every 6 hours as needed for Pain. Cholecalciferol, Vitamin D3, 1,000 unit cap Take 1 capsule by mouth once daily. HISTORIES: FAMILY HISTORY Problem Relation Age of Onset - Colon Cancer Father - Cancer Sister lung cancer - Parkinson's disease [OTHER] Sister PAST MEDICAL HISTORY Diagnosis Date - A-fib ([facility]) - Arrhythmia - Asthma - Cardiac syncope 02/05/2016 - Chronic obstructive pulmonary disease (COPD) ([facility]) - Congestive heart failure (HCC) - Degenerative cervical disc 02/05/2011 - Diverticulosis of colon (without mention of hemorrhage) Diverticulosis - Family history of other specified malignant neoplasm FX HX COLON CA - GERD (gastroesophageal reflux disease) 06/27/2011 - Hypertension 08/09/2012 - Hypertrophy of prostate without urinary obstruction and other lower urinary tract symptoms (LUTS) - Inguinal hernia without mention of obstruction or gangrene, bilateral, (not specified as recurrent) - Lumbar disc disease with radiculopathy 02/10/2014 - Mental disorder - Moderate episode of recurrent major depressive disorder (HCC) 03/24/2017 - Osteoporosis 07/15/2011 - Other and unspecified hyperlipidemia Hyperlipidemia - Other congenital hamartoses, 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 - Peripheral vascular disease (HCC) - Renal stone 09/05/2011 - Restless leg syndrome 07/30/2010 - Restless legs syndrome (RLS) 02/22/2015 - Tachy-bora syndrome (HCC) 11/19/2015 - Thyroid disorder - Unspecified functional disorder of intestine SPASTIC COLITIS - Unspecified hemorrhoids without mention of complication Hemorrhoids - Ventricular tachycardia (HCC) 06/28/13 flecainide - Vitamin D deficiency 07/17/2011 Social History Marital status: Spouse name: Betsy Years of education: Number of children: 2 Occupational History Occupation Employer Comment [employer] Social History Main Topics Smoking status: Former Smoker Packs/day: 0.10 Years: 2.00 Types: Cigarettes Smokeless status: Never Used Comment: 1976 Alcohol use: Yes Comment: occasionally Drug use: No Sexual activity: Yes Partners with: Female REVIEW OF SYSTEMS: General:SEE HPI, No weight loss, malaise or fevers. Genitourinary: See HPI The remainder of the ROS was negative. PHYSICAL EXAMINATION: Blood pressure 152/78, pulse 68, weight 75.3 kg (166 lb). General appearance: Well appearing, alert, in no acute distress, well-hydrated, well nourished Skin: Skin color, texture, turgor normal, no suspicious rashes or lesions Head: Normocephalic, no masses, lesions, tenderness or abnormalities Abdomen: Abdomen soft, non-tender. Bowel sounds normal. No masses, organomegaly GENITOURINARY: MALE EXAM: Rectal Exam: Prostate: size (40 grams), symmetrical, nontender, w/o nodules. Sphincter tone normal, no mass. Anus and perineum wnl. Seminal vesicle nonpalpable. No hemorrhoids IMPRESSION AND PLAN: > Hx of Adenocarcinoma of Prostate - s/p TRUS Prostate Biopsy in 05/2014 > PSA - 5.61 > LYN 40 g > 1-2 week follow up for discussion of elevated PSA William Garcia, ANGELLA, MT, PACalixtoC CNOV Observed: 10/02/2017 Status: COMPLETED Source: [place] 10:00 AM [facility] REPOSITORY Office Visit (UROLWS) Cat AHN PRITESH ([id number]) 1945 M NFR Date Time Provider Department 10/02/17 10:00 AM WILLIAM GARCIA) UROLWS During your visit today, we recorded the following information about you: Pulse Blood pressure Weight 68/minute 152/78 75.3 kg FLY Reid 10/12/2017 10:57 AM Signed [facility] CC: ANDquot; Prostate Cancer Follow-upANDquot; HPI: This is a 72 year old male, with a Adenocarcinoma of Prostate with recent PSA of 5.61, patient has not been following with PSA since he diagnosis on biopsy 05/2014 He had been dealing with his ill and had not remembered to follow up with PSA , last PSA in 04/2016 - 4.5 He will have a PSA today and I will make recommendation based on that new PSA PATHOLOGY: DATE: 05/2014 FINAL DIAGNOSIS 1. Prostate, right base lateral, biopsy (A) - Focal high-grade prostatic intraepithelial neoplasia. 2. Prostate, right mid lateral, biopsy (B) - Benign prostatic tissue. 3. Prostate, right apex lateral, biopsy (C) - Small focus of atypical glands. 4. Prostate, right base medial, biopsy (D) - High-grade prostatic intraepithelial neoplasia. 5. Prostate, right mid medial, biopsy (E) - High-grade prostatic intraepithelial neoplasia. 6. Prostate, right apex medial, biopsy (F) - Benign fibromuscular tissue. - No prostatic glands identified. 7. Prostate, left base lateral, biopsy (G) - High-grade prostatic intraepithelial neoplasia with an adjacent small focus of atypical glands. 8. Prostate, left mid lateral, biopsy (H) - Focal high-grade prostatic intraepithelial neoplasia. 9. Prostate, left apex lateral, biopsy (I) - Benign prostatic tissue. 10. Prostate, left base medial, biopsy (J) - Benign prostatic tissue. 11. Prostate, left mid medial, biopsy (K) - Benign prostatic tissue. 12. Prostate, left apex medial, biopsy (L) - Adenocarcinoma of the prostate, Pranay score 3+3=6, involving one of one core (15%, less than 1 mm). LAB: PSA (ng/mL) Date Value 10/02/2017 5.61 04/29/2016 4.50 09/27/2015 4.02 06/15/2015 4.56 ALLERGY ALLERGIES No Known Allergies MEDICATIONS: zolpidem (AMBIEN) 5 mg tablet Take 1 tablet by mouth at bedtime as needed for Sedation for up to 30 days. atorvastatin (LIPITOR) 10 mg tablet Take 1 tablet by mouth once daily. For cholesterol. fluticasone (FLONASE) 50 mcg/actuation nasal spray Use 2 Sprays in each nostril once daily. Rinse mouth after use. albuterol (PROVENTIL) 5 mg/mL nebu Inhale 0.5 mL as instructed one time only for 1 dose. 1 DOSE NOW - BACK OFFICE. PLACE 0.5 ML PER DROPPER AND 2.5 ML OF NORMAL SALINE INTO RESERVOIR. Nebulizer NEBULIZER FOR HOME USE. albuterol (PROVENTIL) 2.5 mg /3 mL (0.083 %) nebulizer solution Use 3 mL via nebulizer every 4 hours as needed for Wheezing/Shortness of Breath. Use over 5-15minutes. flecainide (TAMBOCOR) 100 mg tablet Take 1 tablet by mouth twice daily. sertraline (ZOLOFT) 50 mg tablet Take 2 tablets by mouth once daily. tamsulosin ER (FLOMAX) 0.4 mg cp24 Take 1 capsule by mouth once daily. metoprolol succinate ER (TOPROL XL) 25 mg 24 hr tablet Take 1 tablet by mouth once daily. Pramipexole (MIRAPEX) 0.75 mg tablet Take 0.75 mg by mouth twice daily as needed. omeprazole (PRILOSEC) 20 mg capsule Take 1 capsule by mouth once daily. ON AN EMPTY STOMACH HYDROcodone-acetaminophen (NORCO) 5-325 mg per tablet Take 1-2 tablets by mouth every 6 hours as needed for Pain. Cholecalciferol, Vitamin D3, 1,000 unit cap Take 1 capsule by mouth once daily. HISTORIES: FAMILY HISTORY Problem Relation Age of Onset - Colon Cancer Father - Cancer Sister lung cancer - Parkinson's disease [OTHER] Sister PAST MEDICAL HISTORY Diagnosis Date - A-fib ([facility]) - Arrhythmia - Asthma - Cardiac syncope 02/05/2016 - Chronic obstructive pulmonary disease (COPD) ([facility]) - Congestive heart failure ([facility]) - Degenerative cervical disc 02/05/2011 - Diverticulosis of colon (without mention of hemorrhage) Diverticulosis - Family history of other specified malignant neoplasm FX HX COLON CA - GERD (gastroesophageal reflux disease) 06/27/2011 - Hypertension 08/09/2012 - Hypertrophy of prostate without urinary obstruction and other lower urinary tract symptoms (LUTS) - Inguinal hernia without mention of obstruction or gangrene, bilateral, (not specified as recurrent) - Lumbar disc disease with radiculopathy 02/10/2014 - Mental disorder - Moderate episode of recurrent major depressive disorder ([facility]) 03/24/2017 - Osteoporosis 07/15/2011 - Other and unspecified hyperlipidemia Hyperlipidemia - Other congenital hamartoses, 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 - Peripheral vascular disease ([facility]) - Renal stone 09/05/2011 - Restless leg syndrome 07/30/2010 - Restless legs syndrome (RLS) 02/22/2015 - Tachy-bora syndrome ([facility]) 11/19/2015 - Thyroid disorder - Unspecified functional disorder of intestine SPASTIC COLITIS - Unspecified hemorrhoids without mention of complication Hemorrhoids - Ventricular tachycardia ([facility]) 06/28/13 flecainide - Vitamin D deficiency 07/17/2011 Social History Marital status: Spouse name: Betsy Years of education: Number of children: 2 Occupational History Occupation Employer Comment [employer] Social History Main Topics Smoking status: Former Smoker Packs/day: 0.10 Years: 2.00 Types: Cigarettes Smokeless status: Never Used Comment: 1977 Alcohol use: Yes Comment: occasionally Drug use: No Sexual activity: Yes Partners with: Female REVIEW OF SYSTEMS: General:SEE HPI, No weight loss, malaise or fevers. Genitourinary: See HPI The remainder of the ROS was negative. PHYSICAL EXAMINATION: Blood pressure 152/78, pulse 68, weight 75.3 kg (166 lb). General appearance: Well appearing, alert, in no acute distress, well-hydrated, well nourished Skin: Skin color, texture, turgor normal, no suspicious rashes or lesions Head: Normocephalic, no masses, lesions, tenderness or abnormalities Abdomen: Abdomen soft, non-tender. Bowel sounds normal. No masses, organomegaly GENITOURINARY: MALE EXAM: Rectal Exam: Prostate: size (40 grams), symmetrical, nontender, w/o nodules. Sphincter tone normal, no mass. Anus and perineum wnl. Seminal vesicle nonpalpable. No hemorrhoids IMPRESSION ANDamp; PLAN: ANDgt; Hx of Adenocarcinoma of Prostate - s/p TRUS Prostate Biopsy in 05/2014 ANDgt; PSA - 5.61 ANDgt; LYN 40 g ANDgt; 1-2 week follow up for discussion of elevated PSA ANGELLA Foster, MT, PA-C Referring Provider: SELF [200] Allergies As of Date: 10/02/2017 (No Known Allergies) Date Reviewed: 09/11/2017 Reviewed by: Suni ([facility]) KITTY Dominguez - Fully Assessed Reason for Visit: Follow Up [171] Prostate Cancer [590] Primary Visit Diagnosis:Prostate cancer (HCC) [C61] Order(s):UA DIP, URINE (POC) [0351242] Order #: [id number] UA DIP, URINE (POC) [[id number]] Order #: [id number] #:[id number] PSA/PROSTSPECAG DIAG [SQPSA] Order #: [id number]. #:[id number] Prescriptions as of 10/02/2017 Sig: ZOLPIDEM 5 MG TABLET Take 1 tablet by mouth at bed* ATORVASTATIN 10 MG TABLET Take 1 tablet by mouth once d* FLUTICASONE 50 MCG/ACTUATION * Use 2 Sprays in each nostril * ALBUTEROL SULFATE CONCENTRATE* Inhale 0.5 mL as instructed o* COMPOUNDED PRESCRIPTION NEBULIZER FOR HOME USE. ALBUTEROL SULFATE 2.5 MG/3 ML* Use 3 mL via nebulizer every * FLECAINIDE 100 MG TABLET Take 1 tablet by mouth twice * SERTRALINE 50 MG TABLET Take 2 tablets by mouth once * Patient taking differently: Take 100 mg by mouth once darion* TAMSULOSIN 0.4 MG CAPSULE Take 1 capsule by mouth once * METOPROLOL SUCCINATE ER 25 MG* Take 1 tablet by mouth once d* PRAMIPEXOLE 0.75 MG TABLET Take 0.75 mg by mouth twice d* OMEPRAZOLE 20 MG CAPSULE,CHATA* Take 1 capsule by mouth once * HYDROCODONE 5 MG-ACETAMINOPHE* Take 1-2 tablets by mouth daryn* CHOLECALCIFEROL (VITAMIN D3) * Take 1 capsule by mouth once * More... More... More... Problem List As Of Date 10/02/2017 Noted Resolved FUNCT DIS INTESTINE NOS [K59.9] More... FAMILY HX-MALIGNANCY NEC [Z80.8] More... Inguinal hernia without mention of obstruction * 06/06/2014 ESOPHAGEAL REFLUX [K21.9] INVALID FOR* ANXIETY STATE NOS [F41.1] INVALID FOR* Disorders of bursae and tendons in shoulder reg*INVALID FOR*07/10/2016 HEMORRHOIDS EXTERNAL THROMBOSED [K64.5] INVALID FOR*07/10/2016 MITRAL/AORTIC FAB INSUFF [I08.0] INVALID FOR*10/20/2007 BPH W URINARY OBS/LUTS [N40.1] INVALID FOR* HYPERTONICITY OF BLADDER [N31.8] INVALID FOR* Chest pain, unspecified [R07.9] INVALID FOR*07/10/2016 LUMB/LUMBOSAC DISC DEGEN [M51.37] INVALID FOR* Skin Cancer of Anterior Chest [C44.519] INVALID FOR* Restless leg syndrome [G25.81] INVALID FOR* Degenerative cervical disc [M50.30] INVALID FOR* GERD (gastroesophageal reflux disease) [K21.9] INVALID FOR* Osteoporosis [M81.0] INVALID FOR* Vitamin D deficiency [E55.9] INVALID FOR* Renal stone [N20.0] INVALID FOR* Erectile dysfunction [N52.9] INVALID FOR* Testalgia [N50.819] INVALID FOR*07/10/2016 Noncompliance [Z91.19] INVALID FOR*06/06/2014 Atrial fibrillation [I48.91] INVALID FOR*06/06/2014 Priority: A More... Congestive heart failure (HCC) [I50.9] INVALID FOR*06/06/2014 More... 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 Mitral valve regurgitation [I34.0] INVALID FOR* Priority: A More... Hyperlipidemia [E78.5] INVALID FOR* Priority: E More... More... More... Mechanically assisted ventilation [Z99.11] INVALID FOR*08/07/2012 Priority: B More... Stress hyperglycemia [R73.9] INVALID FOR*06/06/2014 Priority: E More... Atelectasis [J98.11] INVALID FOR*06/06/2014 Priority: B More... Hypotension, unspecified [I95.9] INVALID FOR*08/09/2012 Priority: C More... Hypertension [I10] INVALID FOR* Priority: D More... More... SUMMARY [V999.95] INVALID FOR* Priority: Mild More... Leukocytosis [D72.829] INVALID FOR* Priority: D More... Multiple thyroid nodules [E04.2] INVALID FOR* History of atrial fibrillation [Z86.79] INVALID FOR* DDD (degenerative disc disease), cervical [M50.*INVALID FOR* S/P cervical spinal fusion [Z98.1] INVALID FOR* Cervical strain [S16.1XXA] INVALID FOR* Myofascial pain [M79.1] INVALID FOR* Nonsustained ventricular tachycardia (HCC) [I47*INVALID FOR*06/06/2014 Near syncope [R55] INVALID FOR*06/06/2014 S/P mitral valve repair [Z98.890] INVALID FOR* Ventricular tachycardia [I47.2] INVALID FOR* Lumbar disc disease with radiculopathy [M51.16] INVALID FOR* Hip arthritis [M16.10] INVALID FOR* Prostate cancer (HCC) [C61] INVALID FOR* Lumbago [M54.5] INVALID FOR* Displacement of lumbar intervertebral disc with*INVALID FOR* Elevated prostate specific antigen (PSA) [R97.2*INVALID FOR* Nocturia [R35.1] INVALID FOR* Situational depression [F43.21] INVALID FOR* Restless legs syndrome (RLS) [G25.81] INVALID FOR* IT band syndrome [M76.30] INVALID FOR*11/19/2015 Tachy-bora syndrome (HCC) [I49.5] INVALID FOR* History of lumbar surgery [Z98.890] INVALID FOR* Lumbar facet arthropathy (HCC) [M46.96] INVALID FOR* Trochanteric bursitis of left hip [M70.62] INVALID FOR* Pain in left hip [M25.552] INVALID FOR* Sinus node dysfunction (HCC) [I49.5] INVALID FOR* Cardiac syncope [R55] INVALID FOR* Medication management [Z79.899] INVALID FOR* Impaired swallowing [R13.10] INVALID FOR* Moderate episode of recurrent major depressive *INVALID FOR* Dysphagia, unspecified [R13.10] INVALID FOR* Disposition: Return in about 2 weeks (around 10/16/2017). Follow-up and Disposition History Recorded Encounter Status:Closed by WILLIAM GARCIA PA-C on 10/12/17 PROGRESS Observed: 09/11/2017 Status: COMPLETED Source: [place] 1:54 PM [facility] REPOSITORY HNO ID: [id number] Author: Butch Pulido III Service: (none) Author Type: Physician Type: Progress Notes Filed: 09/11/2017 2:45 PM Note Text: SUBJECTIVE: This is a 72 year old male that is here today for Chronic Medical Conditions. 1. lumbar facet arthropathy. Still under care of Dr Johns with benefit from injection. Last one in Apr 2017. No opiate pain med needed. 2. hammertoe L 2nd toe treated with plastic splint PAST MEDICAL HISTORY Diagnosis Date - A-fib ([facility]) - Arrhythmia - Asthma - Cardiac syncope 02/05/2016 - Chronic obstructive pulmonary disease (COPD) ([facility]) - Congestive heart failure (HCC) - Degenerative cervical disc 02/05/2011 - Diverticulosis of colon (without mention of hemorrhage) Diverticulosis - Family history of other specified malignant neoplasm FX HX COLON CA - GERD (gastroesophageal reflux disease) 06/27/2011 - Hypertension 08/09/2012 - Hypertrophy of prostate without urinary obstruction and other lower urinary tract symptoms (LUTS) - Inguinal hernia without mention of obstruction or gangrene, bilateral, (not specified as recurrent) - Lumbar disc disease with radiculopathy 02/10/2014 - Mental disorder - Moderate episode of recurrent major depressive disorder (HCC) 03/24/2017 - Osteoporosis 07/15/2011 - Other and unspecified hyperlipidemia Hyperlipidemia - Other congenital hamartoses, 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 albuterol (PROVENTIL) 2.5 mg /3 mL (0.083 %) nebulizer solution Use 3 mL via nebulizer every 4 hours as needed for Wheezing/Shortness of Breath. Use over 5-15minutes. flecainide (TAMBOCOR) 100 mg tablet Take 1 tablet by mouth twice daily. sertraline (ZOLOFT) 50 mg tablet Take 2 tablets by mouth once daily. (Patient taking differently: Take 100 mg by mouth once daily. Take one pill daily ) tamsulosin ER (FLOMAX) 0.4 mg cp24 Take 1 capsule by mouth once daily. metoprolol succinate ER (TOPROL XL) 25 mg 24 hr tablet Take 1 tablet by mouth once daily. Pramipexole (MIRAPEX) 0.75 mg tablet Take 0.75 mg by mouth twice daily as needed. omeprazole (PRILOSEC) 20 mg capsule Take 1 capsule by mouth once daily. ON AN EMPTY STOMACH zolpidem (AMBIEN) 5 mg tablet Take 1 tablet by mouth at bedtime as needed for Sedation. atorvastatin (LIPITOR) 10 mg tablet Take 1 tablet by mouth once daily. For cholesterol. fluticasone (FLONASE) 50 mcg/actuation nasal spray Use 2 Sprays in each nostril once daily. Rinse mouth after use. HYDROcodone-acetaminophen (NORCO) 5-325 mg per tablet Take 1-2 tablets by mouth every 6 hours as needed for Pain. Cholecalciferol, Vitamin D3, 1,000 unit cap Take 1 capsule by mouth once daily. albuterol (PROVENTIL) 5 mg/mL nebu Inhale 0.5 mL as instructed one time only for 1 dose. 1 DOSE NOW - BACK OFFICE. PLACE 0.5 ML PER DROPPER AND 2.5 ML OF NORMAL SALINE INTO RESERVOIR. No current facility-administered medications on file prior to visit. FAMILY HISTORY Problem Relation Age of Onset - Colon Cancer Father - Cancer Sister lung cancer - Parkinson's disease [OTHER] Sister Social History Substance Use Topics - Smoking status: Former Smoker Packs/day: 0.10 Years: 2.00 Types: Cigarettes - Smokeless tobacco: Never Used Comment: 1974 - Alcohol use Yes Comment: occasionally BP 135/71 Pulse 75 Resp 16 Wt 73.9 kg (163 lb) BMI 23.73 kg/m2 . OBJECTIVE: APPEARANCE Well appearing, alert, in no acute distress, well-hydrated, well nourished. Good smooth mov'ts with walking and standing up from chair. EXTREMITIES hammertoe L second toe w/o sore or ulceration. Some lat deviation. ASSESSMENT: lumbar facet arthropathy hammertoe normal grieving PLAN: healthy diet and regular exercise continue home exercises same medications continue staying busy return to office 6 mos and as needed Butch Pulido III MD CNOV Observed: 09/11/2017 Status: COMPLETED Source: [place] 1:40 PM [facility] REPOSITORY Office Visit (FAMPWS) Cat AHN ([id number]) 1945 M NFR Date Time Provider Department 09/11/17 1:40 PM BUTCH PULIDO III During your visit today, we recorded the following information about you: Pulse Respiration Blood pressure Weight 75/minute 16/minute 135/71 73.9 kg Butch Pulido III MD 09/11/2017 2:45 PM Signed SUBJECTIVE: This is a 72 year old male that is here today for Chronic Medical Conditions. 1. lumbar facet arthropathy. Still under care of Dr Johns with benefit from injection. Last one in Apr 2017. No opiate pain med needed. 2. hammertoe L 2nd toe treated with plastic splint PAST MEDICAL HISTORY Diagnosis Date - A-fib ([facility]) - Arrhythmia - Asthma - Cardiac syncope 02/05/2016 - Chronic obstructive pulmonary disease (COPD) ([facility]) - Congestive heart failure (HCC) - Degenerative cervical disc 02/05/2011 - Diverticulosis of colon (without mention of hemorrhage) Diverticulosis - Family history of other specified malignant neoplasm FX HX COLON CA - GERD (gastroesophageal reflux disease) 06/27/2011 - Hypertension 08/09/2012 - Hypertrophy of prostate without urinary obstruction and other lower urinary tract symptoms (LUTS) - Inguinal hernia without mention of obstruction or gangrene, bilateral, (not specified as recurrent) - Lumbar disc disease with radiculopathy 02/10/2014 - Mental disorder - Moderate episode of recurrent major depressive disorder (HCC) 03/24/2017 - Osteoporosis 07/15/2011 - Other and unspecified hyperlipidemia Hyperlipidemia - Other congenital hamartoses, 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 albuterol (PROVENTIL) 2.5 mg /3 mL (0.083 %) nebulizer solution Use 3 mL via nebulizer every 4 hours as needed for Wheezing/Shortness of Breath. Use over 5-15minutes. flecainide (TAMBOCOR) 100 mg tablet Take 1 tablet by mouth twice daily. sertraline (ZOLOFT) 50 mg tablet Take 2 tablets by mouth once daily. (Patient taking differently: Take 100 mg by mouth once daily. Take one pill daily ) tamsulosin ER (FLOMAX) 0.4 mg cp24 Take 1 capsule by mouth once daily. metoprolol succinate ER (TOPROL XL) 25 mg 24 hr tablet Take 1 tablet by mouth once daily. Pramipexole (MIRAPEX) 0.75 mg tablet Take 0.75 mg by mouth twice daily as needed. omeprazole (PRILOSEC) 20 mg capsule Take 1 capsule by mouth once daily. ON AN EMPTY STOMACH zolpidem (AMBIEN) 5 mg tablet Take 1 tablet by mouth at bedtime as needed for Sedation. atorvastatin (LIPITOR) 10 mg tablet Take 1 tablet by mouth once daily. For cholesterol. fluticasone (FLONASE) 50 mcg/actuation nasal spray Use 2 Sprays in each nostril once daily. Rinse mouth after use. HYDROcodone-acetaminophen (NORCO) 5-325 mg per tablet Take 1-2 tablets by mouth every 6 hours as needed for Pain. Cholecalciferol, Vitamin D3, 1,000 unit cap Take 1 capsule by mouth once daily. albuterol (PROVENTIL) 5 mg/mL nebu Inhale 0.5 mL as instructed one time only for 1 dose. 1 DOSE NOW - BACK OFFICE. PLACE 0.5 ML PER DROPPER AND 2.5 ML OF NORMAL SALINE INTO RESERVOIR. No current facility-administered medications on file prior to visit. FAMILY HISTORY Problem Relation Age of Onset - Colon Cancer Father - Cancer Sister lung cancer - Parkinson's disease [OTHER] Sister Social History Substance Use Topics - Smoking status: Former Smoker Packs/day: 0.10 Years: 2.00 Types: Cigarettes - Smokeless tobacco: Never Used Comment: 1975 - Alcohol use Yes Comment: occasionally BP 135/71 Pulse 75 Resp 16 Wt 73.9 kg (163 lb) BMI 23.73 kg/m2 . OBJECTIVE: APPEARANCE Well appearing, alert, in no acute distress, well- hydrated, well nourished. Good smooth mov'ts with walking and standing up from chair. EXTREMITIES hammertoe L second toe w/o sore or ulceration. Some lat deviation. ASSESSMENT: lumbar facet arthropathy hammertoe normal grieving PLAN: healthy diet and regular exercise continue home exercises same medications continue staying busy return to office 6 mos and as needed SANIA Ramon MD, III MD 09/11/2017 2:16 PM Signed PLAN: healthy diet and regular exercise continue home exercises same medications continue staying busy return to office 6 mos and as needed Butch Pulido III MD Referring Provider: BUTCH PLUIDO III [[id number]] Allergies As of Date: 09/11/2017 (No Known Allergies) Date Reviewed: 09/11/2017 Reviewed by: Suni ([facility]) KITTY Dominguez - Fully Assessed Reason for Visit: Hammertoe on left foot [Other] Cmt: 3 months AND hasn't gotten better Primary Visit Diagnosis:Chronic insomnia [F51.04] Other Visit Diagnoses:Vasomotor rhinitis [J30.0] Essential hypertension [I10] Degeneration of lumbar or lumbosacral intervertebral disc [M51.37] Lumbar disc disease with radiculopathy [M51.16] Lumbar facet arthropathy (HCC) [M46.96] Order(s):zolpidem (AMBIEN) 5 mg tabletTake 1 tablet by mouth at bedtime as needed for Sedation for up to 30 days.Disp: 30 tabletRfl: 2 atorvastatin (LIPITOR) 10 mg tabletTake 1 tablet by mouth once daily. For cholesterol.Disp: 90 tabletRfl: 3 fluticasone (FLONASE) 50 mcg/actuation nasal sprayUse 2 Sprays in each nostril once daily. Rinse mouth after use.Disp: 3 BottleRfl: 11 Prescriptions as of 09/11/2017 Sig: ZOLPIDEM 5 MG TABLET Take 1 tablet by mouth at bed* ATORVASTATIN 10 MG TABLET Take 1 tablet by mouth once d* FLUTICASONE 50 MCG/ACTUATION * Use 2 Sprays in each nostril * COMPOUNDED PRESCRIPTION NEBULIZER FOR HOME USE. ALBUTEROL SULFATE 2.5 MG/3 ML* Use 3 mL via nebulizer every * FLECAINIDE 100 MG TABLET Take 1 tablet by mouth twice * SERTRALINE 50 MG TABLET Take 2 tablets by mouth once * Patient taking differently: Take 100 mg by mouth once darion* TAMSULOSIN 0.4 MG CAPSULE Take 1 capsule by mouth once * METOPROLOL SUCCINATE ER 25 MG* Take 1 tablet by mouth once d* PRAMIPEXOLE 0.75 MG TABLET Take 0.75 mg by mouth twice d* OMEPRAZOLE 20 MG CAPSULE,CHATA* Take 1 capsule by mouth once * HYDROCODONE 5 MG-ACETAMINOPHE* Take 1-2 tablets by mouth daryn* CHOLECALCIFEROL (VITAMIN D3) * Take 1 capsule by mouth once * ALBUTEROL SULFATE CONCENTRATE* Inhale 0.5 mL as instructed o* More... More... More... Problem List As Of Date 09/11/2017 Noted Resolved FUNCT DIS INTESTINE NOS [K59.9] More... FAMILY HX-MALIGNANCY NEC [Z80.8] More... Inguinal hernia without mention of obstruction * 06/06/2014 ESOPHAGEAL REFLUX [K21.9] INVALID FOR* ANXIETY STATE NOS [F41.1] INVALID FOR* Disorders of bursae and tendons in shoulder reg*INVALID FOR*07/10/2016 HEMORRHOIDS EXTERNAL THROMBOSED [K64.5] INVALID FOR*07/10/2016 MITRAL/AORTIC FAB INSUFF [I08.0] INVALID FOR*10/20/2007 BPH W URINARY OBS/LUTS [N40.1] INVALID FOR* HYPERTONICITY OF BLADDER [N31.8] INVALID FOR* Chest pain, unspecified [R07.9] INVALID FOR*07/10/2016 LUMB/LUMBOSAC DISC DEGEN [M51.37] INVALID FOR* Skin Cancer of Anterior Chest [C44.519] INVALID FOR* Restless leg syndrome [G25.81] INVALID FOR* Degenerative cervical disc [M50.30] INVALID FOR* GERD (gastroesophageal reflux disease) [K21.9] INVALID FOR* Osteoporosis [M81.0] INVALID FOR* Vitamin D deficiency [E55.9] INVALID FOR* Renal stone [N20.0] INVALID FOR* Erectile dysfunction [N52.9] INVALID FOR* Testalgia [N50.819] INVALID FOR*07/10/2016 Noncompliance [Z91.19] INVALID FOR*06/06/2014 Atrial fibrillation [I48.91] INVALID FOR*06/06/2014 Priority: A More... Congestive heart failure (HCC) [I50.9] INVALID FOR*06/06/2014 More... 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 Mitral valve regurgitation [I34.0] INVALID FOR* Priority: A More... Hyperlipidemia [E78.5] INVALID FOR* Priority: E More... More... More... Mechanically assisted ventilation [Z99.11] INVALID FOR*08/07/2012 Priority: B More... Stress hyperglycemia [R73.9] INVALID FOR*06/06/2014 Priority: E More... Atelectasis [J98.11] INVALID FOR*06/06/2014 Priority: B More... Hypotension, unspecified [I95.9] INVALID FOR*08/09/2012 Priority: C More... Hypertension [I10] INVALID FOR* Priority: D More... More... SUMMARY [V999.95] INVALID FOR* Priority: Mild More... Leukocytosis [D72.829] INVALID FOR* Priority: D More... Multiple thyroid nodules [E04.2] INVALID FOR* History of atrial fibrillation [Z86.79] INVALID FOR* DDD (degenerative disc disease), cervical [M50.*INVALID FOR* S/P cervical spinal fusion [Z98.1] INVALID FOR* Cervical strain [S16.1XXA] INVALID FOR* Myofascial pain [M79.1] INVALID FOR* Nonsustained ventricular tachycardia (HCC) [I47*INVALID FOR*06/06/2014 Near syncope [R55] INVALID FOR*06/06/2014 S/P mitral valve repair [Z98.890] INVALID FOR* Ventricular tachycardia [I47.2] INVALID FOR* Lumbar disc disease with radiculopathy [M51.16] INVALID FOR* Hip arthritis [M16.10] INVALID FOR* Prostate cancer (HCC) [C61] INVALID FOR* Lumbago [M54.5] INVALID FOR* Displacement of lumbar intervertebral disc with*INVALID FOR* Elevated prostate specific antigen (PSA) [R97.2*INVALID FOR* Nocturia [R35.1] INVALID FOR* Situational depression [F43.21] INVALID FOR* Restless legs syndrome (RLS) [G25.81] INVALID FOR* IT band syndrome [M76.30] INVALID FOR*11/19/2015 Tachy-bora syndrome (HCC) [I49.5] INVALID FOR* History of lumbar surgery [Z98.890] INVALID FOR* Lumbar facet arthropathy (HCC) [M46.96] INVALID FOR* Trochanteric bursitis of left hip [M70.62] INVALID FOR* Pain in left hip [M25.552] INVALID FOR* Sinus node dysfunction (HCC) [I49.5] INVALID FOR* Cardiac syncope [R55] INVALID FOR* Medication management [Z79.899] INVALID FOR* Impaired swallowing [R13.10] INVALID FOR* Moderate episode of recurrent major depressive *INVALID FOR* Dysphagia, unspecified [R13.10] INVALID FOR* Other instructions from your clinician: PLAN: healthy diet and regular exercise continue home exercises same medications continue staying busy return to office 6 mos and as needed Butch Pulido III MD Prescriptions ordered this encounter Disp Refills Start End ZOLPIDEM 5 MG TABLET 30 t* 2 09/11/2017 10/11/2017 Class: Print RX Route: ORAL Sig: Take 1 tablet by mouth at bedtime as needed for Sedation for up to 30 days. ATORVASTATIN 10 MG TABLET 90 t* 3 09/11/2017 Route: ORAL Sig: Take 1 tablet by mouth once daily. For cholesterol. FLUTICASONE 50 MCG/ACTUATION NASAL S* 3 [place]* 11 09/11/2017 Route: EACH NOSTRIL Sig: Use 2 Sprays in each nostril once daily. Rinse mouth after use. Medications Discontinued During This Encounter dextromethorphan-guaiFENesin (MUCINE* 08/13/2017 09/11/2017 Class: OTC Route: ORAL Sig: Take 1 tablet by mouth twice daily. Disc: Course of therapy completed zolpidem (AMBIEN) 5 mg tablet 30 t* 2 12/19/2016 09/11/2017 Class: Call Rx Route: ORAL Sig: Take 1 tablet by mouth at bedtime as needed for Sedation. Disc: Reason for discontinue is not on file. atorvastatin (LIPITOR) 10 mg tablet 90 t* 3 09/19/2016 09/11/2017 Class: [employer] Route: ORAL Sig: Take 1 tablet by mouth once daily. For cholesterol. Disc: Reason for discontinue is not on file. fluticasone (FLONASE) 50 mcg/actuati* 1 [place]* 11 09/19/2016 09/11/2017 Route: EACH NOSTRIL Sig: Use 2 Sprays in each nostril once daily. Rinse mouth after use. Disc: Reason for discontinue is not on file. Encounter Status:Closed by BUTCH PULIDO III, MD on 09/11/17 PROGRESS Observed: 08/13/2017 Status: COMPLETED Source: [place] 3:28 PM [facility] REPOSITORY HNO ID: [id number] Author: Butch Pulido III Service: (none) Author Type: Physician Type: Progress Notes Filed: 08/13/2017 3:46 PM Note Text: SUBJECTIVE: This is a 72 year old male that is here today for 1. relates that he stayed with strangers for 4 yrs from age [age] in home w/o running water, heat, electricity. Parents . Poor self esteem. 2. 11 lb wt loss since last Nov. Not eating well. 3. seen in 08/03: cxray neg. Finished course of tamiflu, guaifenisin. PAST MEDICAL HISTORY Diagnosis Date - A-fib ([facility]) - Arrhythmia - Asthma - Cardiac syncope 02/05/2016 - Chronic obstructive pulmonary disease (COPD) ([facility]) - Congestive heart failure ([facility]) - Degenerative cervical disc 02/05/2011 - Diverticulosis of colon (without mention of hemorrhage) Diverticulosis - Family history of other specified malignant neoplasm FX HX COLON CA - GERD (gastroesophageal reflux disease) 06/27/2011 - Hypertension 08/09/2012 - Hypertrophy of prostate without urinary obstruction and other lower urinary tract symptoms (LUTS) - Inguinal hernia without mention of obstruction or gangrene, bilateral, (not specified as recurrent) - Lumbar disc disease with radiculopathy 02/10/2014 - Mental disorder - Moderate episode of recurrent major depressive disorder ([facility]) 03/24/2017 - Osteoporosis 07/15/2011 - Other and unspecified hyperlipidemia Hyperlipidemia - Other congenital hamartoses, 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 - Peripheral vascular disease ([facility]) - Renal stone 09/05/2011 - Restless leg syndrome 07/30/2010 - Restless legs syndrome (RLS) 02/22/2015 - Tachy-bora syndrome ([facility]) 11/19/2015 - Thyroid disorder - Unspecified functional disorder of intestine SPASTIC COLITIS - Unspecified hemorrhoids without mention of complication Hemorrhoids - Ventricular tachycardia ([facility]) 06/28/13 flecainide - Vitamin D deficiency 07/17/2011 Current Outpatient Prescriptions on File Prior to Visit: Nebulizer NEBULIZER FOR HOME USE. albuterol (PROVENTIL) 2.5 mg /3 mL (0.083 %) nebulizer solution Use 3 mL via nebulizer every 4 hours as needed for Wheezing/Shortness of Breath. Use over 5-15minutes. flecainide (TAMBOCOR) 100 mg tablet Take 1 tablet by mouth twice daily. sertraline (ZOLOFT) 50 mg tablet Take 2 tablets by mouth once daily. tamsulosin ER (FLOMAX) 0.4 mg cp24 Take 1 capsule by mouth once daily. metoprolol succinate ER (TOPROL XL) 25 mg 24 hr tablet Take 1 tablet by mouth once daily. Pramipexole (MIRAPEX) 0.75 mg tablet Take 0.75 mg by mouth twice daily as needed. omeprazole (PRILOSEC) 20 mg capsule Take 1 capsule by mouth once daily. ON AN EMPTY STOMACH zolpidem (AMBIEN) 5 mg tablet Take 1 tablet by mouth at bedtime as needed for Sedation. atorvastatin (LIPITOR) 10 mg tablet Take 1 tablet by mouth once daily. For cholesterol. fluticasone (FLONASE) 50 mcg/actuation nasal spray Use 2 Sprays in each nostril once daily. Rinse mouth after use. HYDROcodone-acetaminophen (NORCO) 5-325 mg per tablet Take 1-2 tablets by mouth every 6 hours as needed for Pain. Cholecalciferol, Vitamin D3, 1,000 unit cap Take 1 capsule by mouth once daily. albuterol (PROVENTIL) 5 mg/mL nebu Inhale 0.5 mL as instructed one time only for 1 dose. 1 DOSE NOW - BACK OFFICE. PLACE 0.5 ML PER DROPPER AND 2.5 ML OF NORMAL SALINE INTO RESERVOIR. No current facility-administered medications on file prior to visit. FAMILY HISTORY Problem Relation Age of Onset - Colon Cancer Father - Cancer Sister lung cancer - Parkinson's disease [OTHER] Sister Social History Substance Use Topics - Smoking status: Former Smoker Packs/day: 0.10 Years: 2.00 Types: Cigarettes - Smokeless tobacco: Never Used Comment: 1975 - Alcohol use Yes Comment: occasionally BP 140/76 Pulse 68 Temp 36.6 ?C (97.8 ?F) (Tympanic) Resp 16 Wt 70.8 kg (156 lb) BMI 22.71 kg/m2 . OBJECTIVE: APPEARANCE Well appearing, alert, in no acute distress, well-hydrated, well nourished. NECK Supple, no adenopathy; thyroid symmetric, normal size, no bruits HEART RRR with normal S1 and S2, no murmurs, no gallops, no JVD appreciated LUNG clear to auscultation ASSESSMENT: influenza--resolving PLAN: stay well hydrated--progress activity as able try mucinex DM as needed for cough no longer need nebulizer same other medications Butch Pulido III MD XR CHEST 2V FRONTAL/LAT Observed: 08/03/2017 Status: F Source: [place] 8:54 AM [facility] REPOSITORY * * *Final Report* * * DATE OF EXAM: Aug 03 2017 8:54AM WOX [id number] - XR CHEST 2V FRONTAL/LAT / PROCEDURE REASON: Cough * * * * Physician Interpretation * * * * EXAMINATION: CHEST RADIOGRAPH (2 VIEW FRONTAL and LATERAL) Clinical History: Cough M: XC2_4 Comparison: Comparison is made to prior study dated 02/13/2016 RESULT: Lines, tubes, and devices: Pacemaker is unchanged. Lungs and pleura: Mild chronic interstitial lung changes bilaterally are overall stable. There is no focal consolidation or acute pleural process. There is no overt pulmonary edema. Cardiomediastinal silhouette: The cardiac, mediastinal and hilar shadows are unchanged with postsurgical changes of valvuloplasty and atrial appendage occlusion. Other: The visualized bony structures are stable with osteopenia and unchanged compression deformity of T12. No new compression deformities identified. IMPRESSION: Stable chest. No acute cardiopulmonary process. Brand Marketing Specialist: PSCB Transcribe Date/Time: Aug 03 2017 8:57A Dictated by : SHWETA HORN MD This examination was interpreted and the report reviewed and electronically signed by: SHWETA HORN MD on Aug 03 2017 8:59AM EST [id number] PROGRESS Observed: 08/03/2017 Status: COMPLETED Source: [place] 8:44 AM [facility] REPOSITORY HNO ID: [id number] Author: Lolis Welch (Rt) Service: (none) Author Type: Bag Loader Type: Progress Notes Filed: 08/03/2017 8:55 AM Note Text: Radiology Service Progress Note PATIENT NAME: Cat Ahn DATE OF SERVICE: August 03, 2017 TIME: 8:44 AM PATIENT IDENTITY VERIFICATION COMPLETED USING TWO (2) METHODS: Patient confirmed name verbally and Date of . PATIENT GENDER DATA: Male PATIENT RELEVANT IMPLANT DATA REVIEWED: Not Applicable RADIOLOGY DEPARTMENT: General X-ray: Exam(s) Completed: Chest X-Ray PERIPHERAL IV DATA: Not applicable SIGNED BY: RT Yuri August 03, 2017 8:44 AM PROGRESS Observed: 08/03/2017 Status: COMPLETED Source: [place] 8:16 AM [facility] REPOSITORY HNO ID: [id number] Author: Jackelin Jaffe Service: (none) Author Type: Nurse Practitioner Type: Progress Notes Filed: 08/03/2017 10:19 AM Note Text: HPI Patient is a reliable 72 year old male here today for 2 day history of cough and congestion. States nasal congestion. Cough is productive. Once he starts he cannot stop. Denies muscle aches. States he thinks he has felt chilled and hot. Nothing makes it better or worse. No other concerns at this time. Review of Systems Constitutional: Positive for chills and malaise/fatigue. Negative for fever. HENT: Positive for congestion and sore throat. Negative for ear pain. Respiratory: Positive for cough and shortness of breath. Negative for sputum production and wheezing. Cardiovascular: Negative. Gastrointestinal: Negative for nausea and vomiting. Musculoskeletal: Positive for myalgias. Neurological: Positive for headaches (sinus pressure). Endo/Heme/Allergies: Negative for environmental allergies. All other systems reviewed and are negative. PAST MEDICAL HISTORY Diagnosis Date - A-fib ([facility]) - Arrhythmia - Asthma - Cardiac syncope 02/05/2016 - Chronic obstructive pulmonary disease (COPD) ([facility]) - Congestive heart failure ([facility]) - Degenerative cervical disc 02/05/2011 - Diverticulosis of colon (without mention of hemorrhage) Diverticulosis - Family history of other specified malignant neoplasm FX HX COLON CA - GERD (gastroesophageal reflux disease) 06/27/2011 - Hypertension 08/09/2012 - Hypertrophy of prostate without urinary obstruction and other lower urinary tract symptoms (LUTS) - Inguinal hernia without mention of obstruction or gangrene, bilateral, (not specified as recurrent) - Lumbar disc disease with radiculopathy 02/10/2014 - Mental disorder - Moderate episode of recurrent major depressive disorder ([facility]) 03/24/2017 - Osteoporosis 07/15/2011 - Other and unspecified hyperlipidemia Hyperlipidemia - Other congenital hamartoses, 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 - Peripheral vascular disease ([facility]) - Renal stone 09/05/2011 - Restless leg syndrome 07/30/2010 - Restless legs syndrome (RLS) 02/22/2015 - Tachy-bora syndrome ([facility]) 11/19/2015 - Thyroid disorder - Unspecified functional disorder of intestine SPASTIC COLITIS - Unspecified hemorrhoids without mention of complication Hemorrhoids - Ventricular tachycardia ([facility]) 06/28/13 flecainide - Vitamin D deficiency 07/17/2011 PAST SURGICAL HISTORY Procedure Laterality Date - IRAIS REDMAN IGE - ARTHROSCOPIC RELEASE SHOULDER JOINT 09/05 adhesive capsulitis L shoulder - COLONOSCOP W/ OR W/O [facility] SPEC 07/05/2001 - COLONOSCOP W/ OR W/O [facility] SPEC 12/08/2006 Colonoscopy - COLONOSCOP W/ OR W/O [facility] SPEC 03/21/13 Colonoscopy - EGD W/O OR W/BRUSH/WASH - EGD W/O OR W/BRUSH/WASH 03/21/13 EGD - FNA WITH IMAGING 01/12/13 U/S FNA left thyroid x 2 - HEART SURGERY HX Mitral valve repair- Jul 2012 - INCISE EXTERNAL HEMORRHOID 04/22/06 - INCISE EXTERNAL HEMORRHOID 11/30/13 Exc. 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 MEDICATIONS flecainide (TAMBOCOR) 100 mg tablet Take 1 tablet by mouth twice daily. sertraline (ZOLOFT) 50 mg tablet Take 2 tablets by mouth once daily. tamsulosin ER (FLOMAX) 0.4 mg cp24 Take 1 capsule by mouth once daily. metoprolol succinate ER (TOPROL XL) 25 mg 24 hr tablet Take 1 tablet by mouth once daily. Pramipexole (MIRAPEX) 0.75 mg tablet Take 0.75 mg by mouth twice daily as needed. omeprazole (PRILOSEC) 20 mg capsule Take 1 capsule by mouth once daily. ON AN EMPTY STOMACH zolpidem (AMBIEN) 5 mg tablet Take 1 tablet by mouth at bedtime as needed for Sedation. atorvastatin (LIPITOR) 10 mg tablet Take 1 tablet by mouth once daily. For cholesterol. fluticasone (FLONASE) 50 mcg/actuation nasal spray Use 2 Sprays in each nostril once daily. Rinse mouth after use. HYDROcodone-acetaminophen (NORCO) 5-325 mg per tablet Take 1-2 tablets by mouth every 6 hours as needed for Pain. Cholecalciferol, Vitamin D3, 1,000 unit cap Take 1 capsule by mouth once daily. albuterol (PROVENTIL) 5 mg/mL nebu Inhale 0.5 mL as instructed one time only for 1 dose. 1 DOSE NOW - BACK OFFICE. PLACE 0.5 ML PER DROPPER AND 2.5 ML OF NORMAL SALINE INTO RESERVOIR. Nebulizer NEBULIZER FOR HOME USE. oseltamivir (TAMIFLU) 75 mg capsule Take 1 capsule by mouth twice daily for 5 days. albuterol (PROVENTIL) 2.5 mg /3 mL (0.083 %) nebulizer solution Use 3 mL via nebulizer every 4 hours as needed for Wheezing/Shortness of Breath. Use over 5-15minutes. predniSONE (DELTASONE) 20 mg tablet Take 1 tablet by mouth twice daily for 4 days. FAMILY HISTORY Problem Relation Age of Onset - Colon Cancer Father - Cancer Sister lung cancer - Parkinson's disease [OTHER] Sister Social History Substance Use Topics - Smoking status: Former Smoker Packs/day: 0.10 Years: 2.00 Types: Cigarettes - Smokeless tobacco: Never Used Comment: 1975 - Alcohol use Yes Comment: occasionally BP 126/80 Pulse 88 Temp 37.1 ?C (98.7 ?F) (Tympanic) Resp 18 Wt 73 kg (161 lb) SpO2 97% BMI 23.43 kg/m2 Physical Exam Constitutional: He is oriented to person, place, and time and well-developed, well-nourished, and in no distress. Vital signs are normal. Mildly ill. HENT: Head: Normocephalic and atraumatic. Right Ear: Tympanic membrane, external ear and ear canal normal. Left Ear: Tympanic membrane, external ear and ear canal normal. Nose: Mucosal edema and rhinorrhea present. Right sinus exhibits no maxillary sinus tenderness and no frontal sinus tenderness. Left sinus exhibits no maxillary sinus tenderness and no frontal sinus tenderness. Mouth/Throat: Uvula is midline, oropharynx is clear and moist and mucous membranes are normal. No oropharyngeal exudate, posterior oropharyngeal edema or posterior oropharyngeal erythema. Neck: Neck supple. Cardiovascular: Normal rate, regular rhythm and normal heart sounds. Pulmonary/Chest: Effort normal and breath sounds normal. He has no wheezes. He has no rales. Bilateral wheezes noted through out. Diminished air exchange noted at the bases. SpO2 97 %. Albuterol nebulizer given. Improved air exchange SPO2 98% post treatment. Lymphadenopathy: Head (right side): No submental, no submandibular and no tonsillar adenopathy present. Head (left side): No submental, no submandibular and no tonsillar adenopathy present. He has no cervical adenopathy. Submandibular fullness. Neurological: He is alert and oriented to person, place, and time. Skin: Skin is warm and dry. Nursing note and vitals reviewed. BUN 17 9 - 24 mg/dL Final CCM Creatinine 0.75 0.73 - 1.22 mg/dL Final CCM Sodium 139 136 - 144 mmol/L Final CCM Potassium 4.0 3.7 - 5.1 mmol/L Final CCM Chloride 103 97 - 105 mmol/L Final CCM CO2 23 22 - 30 mmol/L Final CCM Anion Gap 13 9 - 18 mmol/L Final CCM ALT 19 10 - 54 U/L Final CCM eGFR- >60 Final CCM eGFR-All Other Races >60 . Final CCM ASSESSMENT/PLAN: 1. Cough - ICD9: 786.2, ICD10: R05 (primary diagnosis) - XR CHEST 2V FRONTAL/LAT - COMPOUNDED PRESCRIPTION - ALBUTEROL SULFATE 2.5 MG/3 ML (0.083 %) SOLUTION FOR NEBULIZATION - PREDNISONE 20 MG TABLET 2. Flu-like symptoms - ICD9: 780.99, ICD10: R68.89 - XR negative (results reviewed with patient) - Will send home with albuterol nebs and Nebulizer (2-3 times a day for the next 2-3 days) - Steroid burst (see orders) - Encourage rest and fluids - s/s worsening condition discussed - Er indications discussed - If no improvement in 2-3 days should follow with PCP - COMPOUNDED PRESCRIPTION - OSELTAMIVIR 75 MG CAPSULE - ALBUTEROL SULFATE 2.5 MG/3 ML (0.083 %) SOLUTION FOR NEBULIZATION - PREDNISONE 20 MG TABLET 3. Influenza due to unidentified influenza virus with other manifestations - ICD9: 487.8, ICD10: J11.89 - XR negative (results reviewed with patient) - Will send home with albuterol nebs and Nebulizer (2-3 times a day for the next 2-3 days) - Steroid burst (see orders) - Encourage rest and fluids - s/s worsening condition discussed - Er indications discussed - If no improvement in 2-3 days should follow with PCP - COMPOUNDED PRESCRIPTION - OSELTAMIVIR 75 MG CAPSULE - ALBUTEROL SULFATE 2.5 MG/3 ML (0.083 %) SOLUTION FOR NEBULIZATION - PREDNISONE 20 MG TABLET Prescription instructions reviewed with patient as applicable. Patient advised if symptoms do not improve or if symptoms worsen sooner, to contact their primary care physician. Potential red flag symptoms discussed with the patient. Reviewed appropriate action plan to take if red flag symptoms occur. Patient agreeable to treatment plan. Total time evaluating and treating patient >25 minutes Jackelin Jaffe CNP ALLERGIES ALLERGIES DATE TYPE / CODE NAME / CODE REACTION SEVERITY SOURCE 06/07/2018 Drug No Known Unknown [facility] Allergy/416 Allergies/Q97768 Hospital 609776(SNOM 0388(RXNORM) Repository ED CT) 06/04/2018 Drug levofloxacin/F00 Unknown Unknown [facility] Allergy/580 9365880(RXNORM) Hospital 633779(SNOM Repository ED CT) Drug NO KNOWN [facility] Class/55419 ALLERGIES [facility] [place] 1003(SNOMED Repository CT) ENCOUNTERS ENCOUNTERS ADMIT/DISCHARGE ACCOUNT ADMITTING ENCOUNTER LOCATION SOURCE NUMBER CLASS 07/20/2018/07/20/19 [id number] Ambulatory [address] Repository 07/19/2018/07/19/19 [id number] Ambulatory [address] Repository 06/14/2018/06/14/20 [id number] Ambulatory [address] Repository 06/09/2018 [id number] Ambulatory [facility] Hospital ing: Repository 06/08/2018/06/08/20 [id number] Ambulatory [facility] access hospital Repository 06/08/2018/06/08/20 [id number] Ambulatory [address] Hospital ing:ENRoom: Repository AC10 06/05/2018/06/05/20 [id number] Ambulatory B[facility] [place] [facility].Critical access hospital Repository 06/04/2018/06/04/20 [id number] Ambulatory [facility] [place] [facility].Critical access hospital Repository 06/01/2018/06/02/20 [id number] Ambulatory [address] Repository 05/06/2018/05/06/20 [id number] CLAUDIO JOHNS Ambulatory [address] Other [place] Repository 04/23/2018/04/26/20 [id number] Ambulatory [address] [facility] [place] Repository 04/13/2018/04/13/20 [id number] Ambulatory [address] [place] Repository 03/15/2018/03/16/20 [id number] Ambulatory [address] [place] Repository 12/24/2017/12/25/19 [id number] Ambulatory [address] [place] Repository 11/19/2017/11/20/19 [id number] Ambulatory [address] [place] Repository 11/19/2017/11/21/19 [id number] Ambulatory [address] [place] Repository 10/02/2017/10/03/19 [id number] Ambulatory [address] [place] Repository 10/02/2017/10/13/19 [id number] Ambulatory [address] [place] Repository 09/11/2017/09/15/19 [id number] Ambulatory [address] [place] Repository 09/11/2017/09/12/19 [id number] Ambulatory [address] [place] Repository 08/13/2017/08/13/19 [id number] Ambulatory [address] [place] Repository 08/03/2017/08/03/19 [id number] Ambulatory [address] [place] Repository 08/03/2017/08/05/19 [id number] Ambulatory [address] [place] Repository PAYERS PAYERS ENCOUNTER GUARANTOR PAYER SUBSCRIBER SOURCE 06/09/2018 H PRITESH Primary H PRITESH [place] [id number] [place] Insurance:HUMANA BASHDOB: [place], [place] MEDICARE [facility] [id number] Hospital [address]Oap: [phone]) Number: Repository [phone] ) [id number] Date:[id number] [address]KB: 06/09/2018 Secondary NOT GIVENUNK [facility] Insurance:SELF PAY [facility] Number: Effective Repository Date:2018-06-04 06/08/2018 H PRITESH Primary H PRITESH [place] [id number] [place] Insurance:HUMANA BASHDOB: [place], [place] MEDICARE [facility] [id number] Hospital [address]Mua: [phone]) Number: Repository [phone] () [id number] Date:3516-02-20LO [address] [address]JF: 06/08/2018 Secondary NOT GIVENUNK [facility] Insurance:SELF PAY [facility] Number: Effective Repository Date:2018-06-08 06/08/2018 H PRITESH Primary H PRITESH [place] [id number] [place] Insurance:HUMANA BASHDOB: [place] MEDICARE [facility] [id number] Hospital [address]Qfp: [phone]) Number: Repository [phone] () [id number] Date:8843-02-34[place] [id number]: 06/08/2018 Secondary NOT GIVENUNK [place] Insurance:SELF PAY [facility] Number: Effective Repository Date:2018-06-07 06/05/2018 H PRITESH Primary H PRITESH [place] [id number] [place] Insurance:HUMANA [place]HDOB[place] [facility] [id number] Hospital [address]Erj: (330) Number: Repository [phone] () [id number] Date:[id number] [address]AW: 06/05/2018 Secondary NOT GIVENUNK [place] Insurance:SELF PAY [facility] Number: Effective Repository Date:2018-06-05 06/04/2018 H PRITESH Primary H PRITESH [place] [id number] [place] Insurance:HUMANA BASHDOB: [place] MEDICARE [facility] [id number] Hospital [address]Jhb: (330) Number: Repository [phone] () [id number] Date:[id number] [address]LF: 06/04/2018 Secondary NOT GIVENUNK [place] Insurance:SELF PAY [facility] Number: Effective Repository Date:2018-06-02
== END 2018-06-08 07:59 | disposition home or self-care (01) ==
LOC: EN 05:08 → AC 05:13
PROVIDERS: Family Provider Family Medicine; PCP Family Medicine; Referring Provider Surgery; Visit Provider Surgery
PROC: 0DJD8ZZ Inspection of Lower Intestinal Tract, Via Natural or Artificial Opening Endoscopic (ICD-10-PCS; CPT 45378; principal; 2018-06-08 06:25)
DX: K64.9 Unspecified hemorrhoids (principal); K57.30 Diverticulosis of large intestine without perforation or abscess without bleeding; D12.0 Benign neoplasm of cecum; E04.2 Nontoxic multinodular goiter; I48.0 Paroxysmal atrial fibrillation; I10 Essential (primary) hypertension; E78.00 Pure hypercholesterolemia, unspecified; N40.0 Benign prostatic hyperplasia without lower urinary tract symptoms; Z87.891 Personal history of nicotine dependence; Z80.0 Family history of malignant neoplasm of digestive organs; Z95.0 Presence of cardiac pacemaker
CPT/HCPCS: 45385; 88305; J7120; J2405

== ENCOUNTER → 2018-06-09 10:32 | Outpatient (CLI) | payer MEDICARE, SELFPAY ==
[2018-06-04 15:15] VITALS: BMI 22.8
[2018-06-08 05:40] VITALS: BMI 22.2
--- NOTE | 2018-06-09 10:34 | US_ITS ---
STUDY: THYROID ULTRASOUND REASON FOR EXAM: Male, 73 years old. Nodules TECHNIQUE: Ultrasound evaluation of the thyroid was performed with real-time and static xavier-scale imaging. COMPARISON: None. FINDINGS: RIGHT LOBE: The right lobe of the thyroid gland measures 4.1 x 1.7 x 1.5 cm. There is a homogeneous echotexture. There is a solid hypoechoic 1.5 x 0.7 x 0.8 cm nodule LEFT LOBE: The left lobe of the thyroid gland measures 4.3 x 2.0 x 2.2 cm. There is a homogeneous echotexture. There are multiple hypoechoic nodules, chief engineer research notes at least 5 measuring between 0.5 and 1.8 cm. ISTHMUS: The isthmus measures 2 mm. The regional lymph nodes are normal. US/Thyroid IMPRESSION: Normal sized homogeneous thyroid gland with multiple bilateral solid nodules more numerous in the left lobe than the right. Findings suggest goiter. However, sonography cannot distinguish between benign and aggressive nodules and further evaluation with thyroid uptake study is recommended to assess uptake characteristics. If there are suspicious uptake characteristics, biopsy would be recommended. If not a six-month follow-up would be recommended to assure stability Electronically Signed: Pierre Mendez MD at 10:23 EST , Service support ,
--- OUTSIDE RECORDS SUMMARY | 2018-07-26 12:35 | XMS RPT_ITS ---
:1945 Author Organization OHIP Care Team Providers Name Role Phone CLAUDIO JOHNS Admitting Unavailable CLAUDIO JOHNS Attending Unavailable JACKELIN JAFFE (WINDER HELPER) Referring Unavailable CEBUL III, BUTCH Gagnon Attending Unavailable CEBUL IIIBUTCH Attending Unavailable CEBUL III, BUTCH Gagnon Referring Unavailable MARIA T CORONA Referring Unavailable WILLIAM GARCIA (PA) Attending Unavailable CEBUL IIIBUTCH Attending Unavailable CEBUL IIIBUTCH Referring Unavailable RANI MATTSON (WINDER HELPER) Attending Unavailable CEBUL III, BUTCH Gagnon Attending Unavailable CEBUL III, BUTCH Gagnon Referring Unavailable RANI MATTSON (WINDER HELPER) Attending Unavailable BHARAT BELL Attending Unavailable CEBUL III, BUTCH Gagnon Referring Unavailable RANI MATTSON (WINDER HELPER) Attending Unavailable CEBUL III, BUTCH Gagnon Referring Unavailable CEBUL III, BUTCH Gagnon Attending Unavailable CEBUL SANIA, BUTCH Gagnon Referring Unavailable Juan Miguel Pulido Attending Unavailable Juan Miguel Pulido Attending Unavailable Bharat Bell Referring Unavailable Nurse, Surgery Attending Unavailable Cebul IIIButch Referring Unavailable RocklJuan Miguel Attending Unavailable Rockl Juan Miguel Referring Unavailable Cebul III, Butch Primary Care Unavailable CecarlosJuan Miguel Attending Unavailable CeJuan Miguel gonzalez Referring Unavailable Tess Butch LUI Primary Care Unavailable PROBLEMS PROBLEMS DATE TYPE CONDITION / CODE ATTENDING STATUS SOURCE 07/19/2018 Active Other residential NA Active [place] (current[facility] drug Clinic Main therapy / [facility] Z79.899(ICD-10) Repository 07/13/2018 Unknown Z80.0 - Family Juan Miguel Pulido Active [facility] history of malignant Community neoplasm of Hospital digestive organs / Repository Z80.0(ICD-10) 07/13/2018 Unknown 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 Miguel 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 / Community D12.0(ICD-10) Hospital Repository 07/13/2018 Unknown K57.30 - CebulJuan Miguel Active [facility] Diverticulosis of [facility] large intestine Hospital without perforation Repository or abscess without bleeding / K57.30(ICD-10) 07/13/2018 Unknown K64.9 - Unspecified CeJuan Miguel gonzalez Active [facility] hemorrhoids / Community K64.9(ICD-10) Hospital Repository 06/04/2018 Unknown E04.2 - Nontoxic CebuJuan Miguel kilgore Active [place] multinodular goiter Community / E04.2(ICD-10) Hospital Repository 04/13/2018 Active Other intervertebral CLAUDIO JOHNS Active [place] disc degeneration, Clinic Other lumbosacral region / [facility] M51.37(ICD-10) Repository 04/13/2018 Active Intervertebral disc CLAUDIO JOHNS Active [place] disorders with Clinic Other radiculopathy, [facility] lumbar region / Repository M51.16(ICD-10) 11/19/2017 Active Benign prostatic NA Active [place] hyperplasia with Clinic Main lower urinary tract [place] symptoms / Repository N40.1(ICD-10) 11/19/2017 Active 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 Main [place] Repository PROCEDURES PROCEDURES No Procedure Records FoundRESULTS RESULTS PROGRESS Observed: 07/20/2018 Status: COMPLETED Source: [place] 12:47 PM [facility] REPOSITORY HNO ID: [id number] Author: Butch Pulido III Service: (none) Author Type: Physician Type: Progress Notes Filed: 07/20/2018 12:47 PM Note Text: Pritesh, Good news?the lab results look fine. Continue healthy, balanced diet and stay physically active. Same medications. Butch Pulido III, MD, FAAFP PROGRESS Observed: 07/20/2018 Status: COMPLETED Source: [place] 10:[address] [facility] REPOSITORY [facility] ID: [id number] Author: Butch Pulido III Service: (none) Author [...] PAST MEDICAL HISTORY Diagnosis Date - A-fib ([facility]) - Arrhythmia - Asthma - Cardiac syncope 02/05/2016 - Chronic obstructive pulmonary disease (COPD) ([facility]) - Congestive heart failure ([facility]) - Degenerative cervical disc 02/05/2011 - Diverticulosis [...] skull - Pacemaker - Peripheral vascular disease ([facility]) - Renal stone 09/05/2011 - Restless leg [...] MD CNOV Observed: 07/20/2018 Status: COMPLETED Source: [place] 10:[address] [facility] REPOSITORY Office Visit (FAMPWS) Cat AHN ([id number]) 1945 M NFR Date Time Provider Department [...] PAST MEDICAL HISTORY Diagnosis Date - A-fib ([facility]) - Arrhythmia - Asthma - Cardiac syncope 02/05/2016 - Chronic obstructive pulmonary disease (COPD) ([facility]) - Congestive heart failure ([facility]) - Degenerative cervical disc 02/05/2011 - Diverticulosis [...] Moderate episode of recurrent major depressive disorder ([facility]) 03/24/2017 - Osteoporosis 07/15/2011 - Other and unspecified hyperlipidemia Hyperlipidemia - Other congenital hamartoses, not elsewhere classified ([facility]) skull - Pacemaker - Peripheral vascular disease ([facility]) - Renal stone 09/05/2011 - Restless leg syndrome 07/30/2010 - Restless legs syndrome (RLS) 02/22/2015 - Tachy-bora syndrome ([facility]) 11/19/2015 - Thyroid disorder - Unspecified functional disorder of intestine SPASTIC COLITIS - Unspecified hemorrhoids without mention of complication Hemorrhoids - Ventricular tachycardia ([facility]) 06/28/13 flecainide - Vitamin D deficiency 07/17/2011 [...] III MD Referring Provider: BUTCH PULIDO III [[id number]] Allergies As of Date: 07/20/2018 (No Known [...] PANEL, NONFAST Collected: 07/19/2018 Status: F Source: [place] 9:55 AM [facility] [place] REPOSITORY TYPE CODE TESTS RESULT OUT OF [...] Desk Reference: National Heart, Lung, and Blood [place]. National Institutes of Health. 2001: NIH Publication No. 01-3305. 2. An International Atherosclerosis Society position paper: global recommendations for the management of dyslipidemia: executive summary, Atherosclerosis. 2014: 232(2):410-413. Performed By: #### LIPNF #### [facility] [address] [id number] BASIC METABOLIC PANL Collected: 07/19/2018 Status: F Source: [place] 9:[address] [facility] REPOSITORY TYPE CODE TESTS RESULT OUT OF REFERENCE UNITS RANGE LAB GLU 74-99 mg/dL Glucose 97 Result Comment: The Italian Diabetes Association (ADA) provides guidance for cutoff [...] Standards of Medical Care in Diabetes 2016, Italian Diabetes Association. Diabetes Care. 2016.39(Suppl 1). LAB [...] actual GFR. Performed By: #### BMP #### [facility] [address] [place], [place] [address] CNPTOUTREA Observed: 07/06/2018 Status: COMPLETED Source: [place] 12:[address] [facility] REPOSITORY Patient Outreach (FAMPST) Cat AHN ([id number]) 1945 M [facility] Date Time Provider Department 07/06/18 BUTCH PULIDO III FAMPST During your visit today, we recorded the following information about you: Allergies As of Date: 07/06/2018 (No Known Allergies) Date Reviewed: 06/14/2018 Reviewed by: Mahogany Abreu Ma - Fully Assessed Visit Diagnosis:Medication management [Z79.899] Order(s):BASIC METABOLIC PNL [SQBMP] Order #: [id number] FUTURE LIPID PANEL BASIC [SQLIPB] Order #: [id number] FUTURE Prescriptions as of 07/06/2018 Sig: PRAMIPEXOLE 0.75 MG TABLET TAKE 1 [...] Use 2 Sprays in each nostril * X ZOLPIDEM 5 MG TABLET Take 1 tablet by mouth at bed* CHOLECALCIFEROL (VITAMIN D3) * Take 1 capsule by mouth once * More... More... More... Problem List As Of Date 07/06/2018 Noted Resolved Unspecified functional disorder of intestine [...] INVALID FOR* Skin Cancer of Anterior Chest [C44.509] INVALID FOR* Restless leg syndrome [G25.81] INVALID [...] Displacement of lumbar intervertebral disc with*INVALID FOR* Encounter Status:Closed by STACI BELLOUSELaury on 07/21/18 CNOV Observed: 06/14/2018 Status: COMPLETED Source: [place] 9:[address] [facility] REPOSITORY Office Visit (PNMDNA) Cat AHN ([id number]) 1945 M NFR Date Time Provider Department 06/14/18 9:00 AM RANI MATTSON (LUIS F) FELIPE During your visit today, we recorded the following information about you: Pulse Weight Height 93/minute 73 kg 1.709 m Rani Mattson APRN.CNP 06/14/2018 9:34 AM Signed SUBJECTIVE: Cat Ahn presents to [facility] Pain Management Department for a followup appointment [...] reports 99% improvement He takes baclofen and Kermit when necessary Encounter Diagnosis ICD-10-CM 1. Lumbar [...] months This note was partially generated using Citizen[employer] voice recognition system. The above plan and management options were discussed at length with patient. Patient is in agreement with the above and verbalized understanding. Rani Mattson APRN, WINDER HELPER June 14, 2018 Referring Provider: SELF [[id number]] [...] 06/14/18 PROGRESS Observed: 06/14/2018 Status: COMPLETED Source: [place] 8:59 AM [facility] [place] REPOSITORY HNO ID: [id number] Author: Rani Lazo (Delineator) Kelly Service: (none) Author Type: Nurse Practitioner Type: Progress Notes Filed: 06/14/2018 9:34 AM Note Text: SUBJECTIVE: [facility] for a followup [...] bilateral L4, 5, S1 facet injections on ?18 and reports 99% improvement He takes baclofen and Kermit when necessary Encounter Diagnosis ICD-10-CM 1. Lumbar [...] months This note was partially generated using Citizen[employer]VC voice recognition system. The above plan and management options were discussed at length with patient. Patient is in agreement with the above and verbalized understanding. Rani Mattson APRN, WINDER HELPER June 14, 2018 THYROID Observed: 06/09/2018 Status: F Source: [place] 10:34 AM [facility] Imaging Services [address] [place] [address] Thyroid MR#: [id number] Acct: [id number] Name: Cat AHN Rep #: [id number] : 1945 M 73 From: José Mendez MD PCP: Butch Pulido III, MD Status: REG CLI Study: Thyroid Date of Exam: 06/09/18 Exam# [id number] Ordering Dr: Juan Miguel Pulido MD STUDY: [...] homogeneous echotexture. There are multiple hypoechoic nodules, graphic art sales representative notes at least 5 measuring between 0.5 [...] Pulido III, MD; Juan Miguel Pulido MD Golf Cart Attendant: Signed OPERATIVE REPORT - Observed: 06/08/2018 Status: F Source: [place] ENDOSCOPY 7:00 AM [facility] Medical Records Department [address] [place] [address] Operative Report - Endoscopy MR#: [id number] Acct: [id number] Name: Cat AHN Rep #: [id number] : 1945 73 From: Juan Miguel Pulido MD PCP: Butch Pulido III, MD Status: REG [facility] Patient Name: Cat Ahn Procedure Date: 06/08/2018 [...] for surveillance. Procedure Code(s): --- Professional --- 14741, Colonoscopy, flexible; with removal of tumor(s), polyp(s), or other lesion(s) by snare technique Diagnosis Code(s): --- Professional --- K64.9, Unspecified hemorrhoids D12.0, Benign neoplasm of cecum Z80.0, Family history of malignant neoplasm of digestive organs K57.30, Diverticulosis of large intestine without perforation or abscess without bleeding CPT copyright 2017 Italian Medical Association. All rights reserved. The codes documented in this report are preliminary and upon client account manager review may be revised to meet current compliance requirements. Juan Miguel Pulido MD 06/08/2018 6:59:37 AM This report has been signed electronically. Number of Addenda: 0 Note Initiated On: 06/08/2018 6:08 AM 06/08/18 0659 Date Juan Miguel Pulido MD Cosigner Signature: Date (if indicated) CC: Butch Pulido III, MD; Juan Miguel Pulido MD Date Dictated: 06/08/18607 Date Transcribed: Golf Cart Attendant: KAMINI Signed COLON BIOPSY (CHOOSE Observed: 06/08/2018 Status: F Source: [place] SITE) 12:00 AM [facility] Patient: Cat AHN : 1945 (73/M) Acct Num: [id number] Phys: Juan Miguel Pulido MD Unit Num: [id number] Loc: EN Specimen: [id number] Received: 06/08/18 - 7 Spec Type: COLON BX TISSUES 1 TISSUES: Cecum, NOS GROSS DESCRIPTION Received in fixative is one container labeled with the patient's name and designated cecal polyp. The specimen consists of multiple irregular fragments of armijo soft tissue mixed with fecal material that in aggregate measure 1.5 x 0.2 x 0.1 cm. The specimen is totally submitted in one cassette. / FRANCIS:mary 06/08/18 TC:1 CPT: 96716 HEADER OPERATION: Colonoscopy (MAC) PRE-OP DIAGNOSIS: Family history of colon cancer TISSUE SUBMITTED: Cecal polyp MICROSCOPIC DESCRIPTION Slides are reviewed. MICROSCOPIC DIAGNOSIS Cecal polyp, biopsy: Fragments of tubular adenoma. Fragments of fecal material. FRANCIS:mary 06/09/18 Signed Scott Herman 06/09/18 <signature on file> Performed By: #### PCOLBX #### [facility] [address] [place] [place], [address] SURGERY VISIT REPORT Observed: 06/04/2018 Status: F Source: [place] 4:05 PM [facility] [address] [place] [address] OFFICE VISIT Date of Service: 06/04/18 MR#: [id number] Acct: [id number] Name: Cat AHN Rep #: [id number] : 1945 Provider: Juan Miguel Pulido MD Age/Sex: 73/M Location: [facility] Status: Signed Intake Vital Signs06/04/18 Height 5 ft 9.5 in 06/04/18 Weight: 157 lb 1 oz 06/04/18 Body Mass Index (BMI) 22.8 06/04/18 Blood Pressure 174/74 H Intake Visit Reasons: C-SCOPE ADEEL PER DR BELL Chief Complaint: discuss colonoscopy, fam hx colon cancer Rubber Goods Tester Water Required: No Is patient in pain?: No [...] mg PO DAILY 06/04/18 [History Confirmed 06/04/18] [facility] Medical History Multiple thyroid nodules (Acute) Family [...] Smoking Status: Former smoker HPI HPI HPI: Cat AHN, is a 73 M who presents to the office today for surgical planning for a colonoscopy. He also has multi nodular thyroid disease. 73-year-old gentleman. He lost his to ovarian cancer this past year. He has had a very difficult time. His primary care physician is Dr. Butch Pulido III and his electric sign wirer is Dr. Toan Bell. The patient has [...] modified barium swallow study performed at the [facility] October 23, 2016 which was [...] Appearance: average body habitus Orientation: alert, awake [facility] Head: normal to inspection Neck Other: Kyphosis [...] nodules E04.2 06/04/18 1605 <Electronically signed by Juan Miguel Pulido MD> Date Juan Miguel Pulido MD Cosigner Signature: Date (if applicable) CC: Butch Pulido III, MD; Bharat Bell MD PROGRESS Observed: 06/01/2018 Status: COMPLETED Source: [place] 5:[address] [facility] REPOSITORY HNO ID: [id number] Author: Bharat Bell Service: (none) Author Type: [...] N/A Beta ishmael for ASHD with prior KS or prior LVEF<40 (NQF 0070) - N/A [...] PAST MEDICAL HISTORY Diagnosis Date - A-fib ([facility]) - Arrhythmia - Asthma - Cardiac syncope 02/05/2016 - Chronic obstructive pulmonary disease (COPD) ([facility]) - Congestive heart failure ([facility]) - Degenerative cervical disc 02/05/2011 - Diverticulosis [...] Moderate episode of recurrent major depressive disorder ([facility]) 03/24/2017 - Osteoporosis 07/15/2011 - Other and unspecified hyperlipidemia Hyperlipidemia - Other congenital hamartoses, 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 - Peripheral vascular disease ([facility]) - Renal stone 09/05/2011 - Restless leg syndrome 07/30/2010 - Restless legs syndrome (RLS) 02/22/2015 - Tachy-bora syndrome ([facility]) 11/19/2015 - Thyroid disorder - Unspecified functional disorder of intestine SPASTIC COLITIS - Unspecified hemorrhoids without mention of complication Hemorrhoids - Ventricular tachycardia ([facility]) 06/28/13 flecainide - Vitamin D deficiency 07/17/2011 [...] children: 2 Occupational History Occupation Employer Comment [employer] Social History Main Topics Smoking status: Former [...] MD EKG1 Observed: 06/01/2018 Status: F Source: [place] 4:[address] [facility] REPOSITORY NAME : Cat AHN PID : [id number] : 1945 Gender : Male Race : [...] ms QTC Calculation(Bezet) : 469 ms R [place] : -9 degrees T [place] : 3 degrees Test Reason : Location : 136 : [place] Overread By : BHARAT BELL MD Edited By : BHARAT BELL MD Referred By : BUTCH PULIDO III Acquired by : LUISA REYNOLDS Observed: 06/01/2018 Status: COMPLETED Source: [place] 3:[address] [facility] REPOSITORY Office Visit (CAWSTR) Cat AHN ([id number]) 1945 M NFR Date Time Provider Department [...] N/A Beta ishmael for ASHD with prior KS or prior LVEF<40 (NQF 0070) - N/A [...] PAST MEDICAL HISTORY Diagnosis Date - A-fib ([facility]) - Arrhythmia - Asthma - Cardiac syncope 02/05/2016 - Chronic obstructive pulmonary disease (COPD) ([facility]) - Congestive heart failure ([facility]) - Degenerative [...] PAST SURGICAL HISTORY Procedure Laterality Date - JOLLYHeri ЮЛИЯ IGE - ARTHROSCOPIC RELEASE SHOULDER JOINT 09/05 [...] children: 2 Occupational History Occupation Employer Comment [employer] Social History Main Topics Smoking status: Former [...] the following areas and commit to making residential changes. EAT A WHOLE FOOD, PLANT BASED [...] accepted: Orders Referring Provider: BUTCH PULIDO III [[id number]] Allergies As of Date: 06/01/2018 (No Known Allergies) Date Reviewed: 06/01/2018 Reviewed by: Cherelle Daniel LPN - Fully Assessed Reason for Visit: Established Patient [175] Cmt: AF Primary Visit Diagnosis:Preop cardiovascular exam [Z01.810] Other Visit Diagnosis:S/P MVR (mitral valve replacement) [Z95.2] Order(s):COMPLETE ECG [] Order #: [id number]. #:[id number]--[id number]: 1 ECHO [402427] Order #: [id number]: 1 FUTURE ECG COMPLETE W INTERPRETATION [ECG01] Order #: [id number] FUTURE Prescriptions as of 06/01/2018 Sig: ATORVASTATIN [...] the following areas and commit to making residential changes. EAT A WHOLE FOOD, PLANT BASED [...] 06/01/18 CNNURSE Observed: 06/01/2018 Status: COMPLETED Source: [place] 11:[address] [facility] REPOSITORY Nurse Visit (CAWSTR) Cat AHN ([id number]) 1945 M NFR Date Time Provider Department 06/01/18 11:30 AM NURSE CARD ADMIN [facility] CAWSTR During your visit today, we recorded the following information about you: Sami Eng RN 06/03/2018 11:52 AM Signed Ekg completed per order. Pt tolerated procedure without distress. Sami Eng RN Referring Provider: BHARAT BELL [[id number]] Allergies As of Date: 06/01/2018 (No Known [...] More... Visit Notes: >> Sami Eng RN [facility] Jun 03, 2018 11:52 AM Status: Signed Ekg completed per order. Pt tolerated procedure without distress. Sami Eng RN Encounter Status:Closed by SAMI ENG RN on 06/03/18 NURSING PROG Observed: 05/06/2018 Status: COMPLETED Source: [place] 10:40 AM CLINIC OTHER CAMPUS REPOSITORY HNO ID: [id number] Author: Kimberly (Rn) DALTON Rosenthal Service: Nursing Author Type: Registered Nurse Type: Nursing Progress Note Filed: 05/06/2018 11:03 AM Note Text: Nursing Progress Note Patient Name: Cat Ahn Patient Location: [place] Surgery/ME Surgery 1032 Pt received in PACU [...] PT ED Observed: 05/06/2018 Status: COMPLETED Source: [place] 10:39 AM [facility] REPOSITORY HNO ID: [id number] Author: Kimberly (Rn) DALTON Rosenthal Service: Nursing [...] Signed By: Kimberly Rosenthal RN In Department[facility] XR FLUOROSCOPY Observed: 05/06/2018 Status: F Source: [place] 10:31 AM [facility] REPOSITORY * * *Final Report* * * DATE OF EXAM: May 06 2018 10:31AM MDR 5513 - XR FLUOROSCOPY / PROCEDURE REASON: [...] procedure note for details regarding this procedure. Golf Cart Attendant: OSWALDO Transcribe Date/Time: May 06 2018 10:46A Dictated by : MARCOS SHRESTHA MD This examination was interpreted and the report reviewed and electronically signed by: MARCOS SHRESTHA MD on May 06 2018 10:47AM EST [id number] OPERATIVE NO Observed: 05/06/2018 Status: COMPLETED Source: [place] 10:29 AM [facility] OTHER CAMPUS REPOSITORY [facility] ID: [id number] Author: Claudio Johns Service: Pain Management Author [...] HISTORY PHYSICAL Observed: 05/06/2018 Status: COMPLETED Source: [place] 9:49 AM [facility] OTHER CAMPUS REPOSITORY O ID: [id number] Author: Claudio Johns Service: Pain Management Author [...] PAST MEDICAL HISTORY Diagnosis Date - A-fib ([facility]) - Arrhythmia - Asthma - Cardiac syncope 02/05/2016 - Chronic obstructive pulmonary disease (COPD) ([facility]) - Congestive heart failure (HCC) - Degenerative [...] children: 2 Occupational History Occupation Employer Comment [employer] Social History Main Topics Smoking status: Former [...] PT ED Observed: 05/06/2018 Status: COMPLETED Source: [place] 9:02 AM [facility] REPOSITORY HNO ID: [id number] Author: Fiorella (Rn) DALTON Montero Service: (none) [...] Signed By: Fiorella Montero RN In Department: [facility] CNNURSE Observed: 04/23/2018 Status: COMPLETED Source: [place] 10:[address] [facility] REPOSITORY Nurse Visit (FAMPWS) Cat AHN ([id number]) 1945 M NFR Date Time Provider Department 04/23/18 10:00 AM [place] NURSE FAMPWS During your visit today, we recorded the following information about you: Temperature 96.7 degrees Sharlaher Cobos REIMBURSEMENT LIAISON 04/23/2018 9:49 AM Signed 73 year old male here for INACTIVATED INFLUENZA VACCINE. 8332-7249 Season Patient is identified by name and date of : Yes [] CONTRAINDICATIONS color enhanced section Age less than 6 months? No Allergy to eggs, chicken, chicken feathers, or chicken dander? No Allergy to thimerosal (a preservative) or formaldehyde, gelatin? No History of severe reaction to any vaccine component or a previous dose of influenza vaccination? No History of Guillain-[place] Syndrome within 6 weeks after a previous [...] sheet given? Yes See immunization activity in [facility] for details of immunizations adminstered today. Patient age: [age] year old For The 9721-1459 Flu Season 6-35 months old: Fluzone 0.25 [...] [Z23] Order(s):INFLUENZA SEASONAL HIGH DOSE AGE 65+ [13728LMC] Order #: [id number] Prescriptions as of 04/23/2018 Sig: ATORVASTATIN 10 [...] 04/23/18 PROGRESS Observed: 04/23/2018 Status: COMPLETED Source: [place] 9:47 AM CLINIC [facility]IN [place] REPOSITORY HNO ID: [id number] Author: Sharla Cobos LPN Service: (none) Author Type: (none) Type: Progress Notes Filed: 04/23/2018 9:49 AM Note Text: 73 year old male here for INACTIVATED INFLUENZA VACCINE. 2492-8942 Season Patient is identified by name and date of : Yes [] CONTRAINDICATIONS color enhanced section Age less than 6 months? No Allergy to eggs, chicken, chicken feathers, or chicken dander? No Allergy to thimerosal (a preservative) or formaldehyde, gelatin? No History of severe reaction to any vaccine component or a previous dose of influenza vaccination? No History of Guillain-[place] Syndrome within 6 weeks after a previous [...] sheet given? Yes See immunization activity in [facility] for details of immunizations adminstered today. Patient age: [age] year old For The 1742-4990 Flu Season 6-35 months old: Fluzone 0.25 [...] 04/13/2018 Status: COMPLETED Source: [place] 10:30 AM [facility] REPOSITORY Office Visit (PNMDNA) Cat AHN ([id number]) 1945 M NFR Date Time Provider Department 04/13/18 10:30 AM RANI MATTSON (LUIS F) PNMDNA During your visit today, we recorded the following information about you: Pulse Weight 88/minute 71.7 kg Rani Mattson APRN.CNP 04/13/2018 12:05 PM Signed SUBJECTIVE: Cat Ahn presents to [facility] Pain Management Department for a followup appointment [...] like to repeat He takes baclofen and Kermit very sparingly He still continues to grieve [...] Management Center 2. He takes baclofen and Kermit 5/325 very sparingly. No refills needed today 3. Interventional procedure options discussed. Ordered and schedule bilateral L4, 5, S1 facet injections 4. Patient is active his pain is tolerated 5) F/U in 3 months This note was partially generated using Citizen[employer] voice recognition system. The above plan and management options were discussed at length with patient. Patient is in agreement with the above and verbalized understanding. Rani Mattson, ACCOUNTING SPECIALIST, WINDER HELPER April 13, 2018 Referring Provider: SELF [200] [...] AGT PVRT FACET JT LMBR/SAC 1 LEVEL [[id number]] Order #: [id number] NJX DX/THER AGT PVRT FACET JT LMBR/SAC 2ND LEVEL [[id number]] Order #: [id number] Prescriptions as of 04/13/2018 Sig: ATORVASTATIN 10 [...] 04/13/18 PROGRESS Observed: 04/13/2018 Status: COMPLETED Source: [place] 10:18 AM [facility] [place] REPOSITORY HNO ID: [id number] Author: Rani Lazo (Delineator) Kelly Service: (none) Author Type: Nurse Practitioner Type: Progress Notes Filed: 04/13/2018 12:05 PM Note Text: SUBJECTIVE: Cat Ahn presents to [facility] Pain Management Department for a followup appointment [...] like to repeat He takes baclofen and Kermit very sparingly He still continues to grieve [...] Management Center 2. He takes baclofen and Kermit 5/325 very sparingly. No refills needed today 3. Interventional procedure options discussed. Ordered and schedule bilateral L4, 5, S1 facet injections 4. Patient is active his pain is tolerated 5) F/U in 3 months This note was partially generated using Citizen[employer] voice recognition system. The above plan and management options were discussed at length with patient. Patient is in agreement with the above and verbalized understanding. Rani Mattson APRN, WINDER HELPER April 13, 2018 HOSP Observed: 04/13/2018 Status: COMPLETED Source: [place] 12:00 AM CLINIC OTHER CAMPUS REPOSITORY Patient:Cat Ahn MRN: <[id number]> Height:5' 10(1.778 m) Weight:150 lb (68.04 kg) [...] for the following basenames: K,HCT Progress Notes ([facility]): Sharla Cobos MENDY 04/23/2018 9:49 AM [...] dose of influenza vaccination? No History of Guillain-[place] Syndrome within 6 weeks after a previous [...] sheet given? Yes See immunization activity in [facility] for details of immunizations adminstered today. Patient age: [age] year old For [place] 4785-0123 Flu Season 6-35 months old: Fluzone 0.25 [...] in one months time. Progress Notes ([facility]): Rani Mattson APRN.WINDER HELPER 04/13/2018 12:05 PM Signed SUBJECTIVE: Cat Ahn presents to [facility] Pain Management Department for a followup appointment [...] like to repeat He takes baclofen and Kermit very sparingly He still continues to grieve [...] Management Center 2. He takes baclofen and Kermit 5/325 very sparingly. No refills needed today 3. Interventional procedure options discussed. Ordered and schedule bilateral L4, 5, S1 facet injections 4. Patient is active his pain is tolerated 5) F/U in 3 months This note was partially generated using Citizen[employer] voice recognition system. The above plan and management options were discussed at length with patient. Patient is in agreement with the above and verbalized understanding. Rani Mattson APRN, WINDER HELPER April 13, 2018 Previous Version PROGRESS Observed: 2018 Status: COMPLETED Source: [place] 9:56 AM [facility] [place] REPOSITORY O ID: [id number] Author: Butch Pulido III Service: (none) Author [...] PAST MEDICAL HISTORY Diagnosis Date - A-fib ([facility]) - Arrhythmia - Asthma - Cardiac syncope 02/05/2016 - Chronic obstructive pulmonary disease (COPD) ([facility]) - Congestive heart failure ([facility]) - Degenerative cervical disc 02/05/2011 - Diverticulosis [...] Moderate episode of recurrent major depressive disorder ([facility]) 03/24/2017 - Osteoporosis 07/15/2011 - Other and unspecified hyperlipidemia Hyperlipidemia - Other congenital hamartoses, 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 REPOSITORY [facility] ([id number]) 1945 M [facility] Date Time Provider Department 03/15/18 9:40 AM [...] PAST MEDICAL HISTORY Diagnosis Date - A-fib ([facility]) - Arrhythmia - Asthma - Cardiac syncope 02/05/2016 - Chronic obstructive pulmonary disease (COPD) ([facility]) - Congestive heart failure (HCC) - Degenerative [...] Moderate episode of recurrent major depressive disorder ([facility]) 03/24/2017 - Osteoporosis 07/15/2011 - Other and unspecified hyperlipidemia Hyperlipidemia - Other congenital hamartoses, 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 - Peripheral vascular disease ([facility]) - Renal stone 09/05/2011 - Restless leg syndrome 07/30/2010 - Restless legs syndrome (RLS) 02/22/2015 - Tachy-bora syndrome ([facility]) 11/19/2015 - Thyroid disorder - Unspecified functional disorder of intestine SPASTIC COLITIS - Unspecified hemorrhoids without mention of complication Hemorrhoids - Ventricular tachycardia ([facility]) 06/28/13 flecainide - Vitamin D deficiency 07/17/2011 [...] III MD Referring Provider: BUTCH PULIDO III [[id number]] Allergies As of Date: 2018 (No Known Allergies) Date Reviewed: 2018 Reviewed by: Suni ([facility]) KITTY Dominguez - Fully Assessed Reason for [...] CONSULT TO GENERAL SURGERY [9011] Order #: [id number]: 1 Prescriptions as of 2018 Sig: METOPROLOL [...] 03/15/18 PROGRESS Observed: 12/24/2017 Status: COMPLETED Source: [place] 9:55 AM [facility] [place] REPOSITORY O ID: [id number] Author: Rani Lazo (Delineator) Kelly Service: (none) Author Type: Nurse Practitioner Type: Progress Notes Filed: 12/24/2017 10:42 AM Note Text: SUBJECTIVE: Cat Ahn presents to [facility] Pain Management Department for a followup [...] 2017 CNOV Observed: 12/24/2017 Status: COMPLETED Source: [place] 9:[address] [facility] REPOSITORY Office Visit ([facility]) Cat AHN ([id number]) 1945 M NFR Date Time Provider Department 12/24/17 9:40 AM [facility]TS[facility] During your visit today, we recorded the following information about you: Pulse Weight 84/minute 73 kg Rani Mattson APRN.WINDER HELPER 12/24/2017 10:42 AM Signed SUBJECTIVE: Cat Ahn presents to [facility] Pain Management Department for a followup appointment [...] above and verbalized understanding. Rani Mattson APRN, WINDER HELPER December 24, 2017 Referring Provider: SELF [200] [...] 12/24/17 PROGRESS Observed: 11/20/2017 Status: COMPLETED Source: [place] 6:[address] [facility] REPOSITORY HNO ID: [id number] Author: Butch Pulido III Service: (none) Author Type: Physician Type: Progress Notes Filed: 11/20/2017 6:16 PM Note Text: Pritesh, The PSA value is actually lower than it was a month ago which would confirm my suspicion of benign disease. No further evaluation is required at this time Butch Pulido III, MD, FAAFP PSA, FREE Collected: 11/19/2017 Status: F Source: [place] 4:[address] [facility] REPOSITORY TYPE CODE TESTS RESULT OUT [...] Nunez M.D., Ph.D., Kevin Camargo M.D., Suni Brush M.P.H., Allison Cho Sc.D. Effect of Verification Bias on Screening for Prostate Cancer by Measurement of Prostatic Specific Antigen. N Engl J Med 2003,349:335-42. LAB PSAPER % PSA, Percent Free 10 DO NOT ORDER FOR SUPERIOR ONLY Result Comment: Less than 11% suggestive of prostate cancer. Greater than 23% suggestive of benign condition. Performed By: #### PSATF #### [facility] [address] [place], [place] [address] PROGRESS Observed: 11/19/2017 Status: COMPLETED Source: [place] 4:[address] [facility] REPOSITORY HNO ID: [id number] Author: Butch Pulido III Service: (none) Author Type: Physician Type: Progress Notes Filed: 11/19/2017 4:37 PM Note Text: SUBJECTIVE: This is a 72 year old male that is here today for 1. lab review: PSA 5.61 in September, 4.50 in Apr 2016 Pt has seen urologist at [facility] and discussed tx plan for elevated psa. [...] MD CNOV Observed: 11/19/2017 Status: COMPLETED Source: [place] 4:[address] [facility] REPOSITORY Office Visit ([facility]) ANABELLECat ([id number]) 1945 M NFR Date Time Provider Department 11/19/17 4:00 PM CEBUTCH GONZALEZ III During your visit today, we recorded the following information about you: Pulse Respiration Blood pressure Weight 70/minute 16/minute 130/69 74.8 kg Butch Pulido III MD 11/19/2017 4:37 PM Signed SUBJECTIVE: This is a 72 year old male that is here today for 1. lab review: PSA 5.61 in September, 4.50 in Apr 2016 Pt has seen urologist at [facility] and discussed tx plan for elevated psa. They mutually agreed to conservative course of observation. Pt states he has a good quality of active life, and he does not want any aggressive evaluation or treatment for the elevated psa. PAST MEDICAL HISTORY Diagnosis Date - A-fib ([facility]) - Arrhythmia - Asthma - Cardiac syncope 02/05/2016 - Chronic obstructive pulmonary disease (COPD) ([facility]) - Congestive heart failure ([facility]) - Degenerative cervical disc 02/05/2011 - Diverticulosis [...] Moderate episode of recurrent major depressive disorder ([facility]) 03/24/2017 - Osteoporosis 07/15/2011 - Other and [...] Allergies) Date Reviewed: 11/19/2017 Reviewed by: Suni ([facility]) KITTY Dominguez - Fully Assessed Reason for Visit: Review labs [Other] Primary Visit Diagnosis:BPH with obstruction/lower urinary tract symptoms [N40.1, N13.8] Other Visit Diagnosis:Situational depression [F43.21] Order(s):PSA FREE [SQPSATF] Order #: [id number] FUTURE Prescriptions as of 11/19/2017 Sig: FLECAINIDE [...] PSA, DIAGNOSTIC Collected: 10/02/2017 Status: F Source: [place] 11:[address] [facility] REPOSITORY TYPE CODE TESTS RESULT OUT [...] Kevin Camargo M.D., Suni Brush, M.P.H., Allison Cho, ScTamanna. Effect of Verification Bias on Screening for Prostate Cancer by Measurement of Prostatic Specific Antigen. N Engl J Med 2003,349:335-42. Performed By: #### PSA #### [facility] [address] [place], [place] [address] PROGRESS Observed: 10/02/2017 Status: COMPLETED Source: [place] 10:[address] [facility] REPOSITORY HNO ID: [id number] Author: William Garcia (Pa) Service: (none) Author Type: Physician Sound Truck Operator Type: Progress Notes Filed: 10/12/2017 10:57 AM Note Text: [facility] CC: Prostate Cancer Follow-up HPI: This is [...] PAST MEDICAL HISTORY Diagnosis Date - A-fib ([facility]) - Arrhythmia - Asthma - Cardiac syncope 02/05/2016 - Chronic obstructive pulmonary disease (COPD) ([facility]) - Congestive heart failure (HCC) - Degenerative [...] children: 2 Occupational History Occupation Employer Comment [employer] Social History Main Topics Smoking status: Former [...] discussion of elevated PSA ANGELLA Foster, [place], PAUrban MORAN Observed: 10/02/2017 Status: COMPLETED Source: [place] 10:00 AM [facility] [place] REPOSITORY Office Visit (UROLWS) ANABELLECat ([id number]) 1945 M NFR Date Time Provider Department 10/02/17 10:00 AM WILLIAM GARCIA) UROLWS During your visit today, we recorded the following information about you: Pulse Blood pressure Weight 68/minute 152/78 75.3 kg FLY Reid 10/12/2017 10:57 AM Signed [facility] CC: ANDquot; Prostate Cancer Follow-upANDquot; HPI: This [...] PAST MEDICAL HISTORY Diagnosis Date - A-fib ([facility]) - Arrhythmia - Asthma - Cardiac syncope 02/05/2016 - Chronic obstructive pulmonary disease (COPD) ([facility]) - Congestive heart failure ([facility]) - Degenerative cervical disc 02/05/2011 - Diverticulosis [...] Moderate episode of recurrent major depressive disorder ([facility]) 03/24/2017 - Osteoporosis 07/15/2011 - Other and unspecified hyperlipidemia Hyperlipidemia - Other congenital hamartoses, 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 - Peripheral vascular disease ([facility]) - Renal stone 09/05/2011 - Restless leg syndrome 07/30/2010 - Restless legs syndrome (RLS) 02/22/2015 - Tachy-bora syndrome ([facility]) 11/19/2015 - Thyroid disorder - Unspecified functional disorder of intestine SPASTIC COLITIS - Unspecified hemorrhoids without mention of complication Hemorrhoids - Ventricular tachycardia ([facility]) 06/28/13 flecainide - Vitamin D deficiency 07/17/2011 Social History Marital status: Spouse name: Betsy Years of education: Number of children: 2 Occupational History Occupation Employer Comment [employer] Social History Main Topics Smoking status: Former [...] Allergies) Date Reviewed: 09/11/2017 Reviewed by: Suni ([facility]) KITTY Dominguez - Fully Assessed Reason for Visit: Follow Up [171] Prostate Cancer [590] Primary Visit Diagnosis:Prostate cancer (HCC) [C61] Order(s):UA DIP, URINE (POC) [[id number]] Order #: [id number] UA DIP, URINE (POC) [8079011] Order #: [id number]. #:[id number] PSA/PROSTSPECAG DIAG [SQPSA] Order #: [id number]. #:[id number] Prescriptions as of 10/02/2017 Sig: ZOLPIDEM 5 [...] 10/12/17 PROGRESS Observed: 09/11/2017 Status: COMPLETED Source: [place] 1:[address] [facility] REPOSITORY HNO ID: [id number] Author: Butch Pulido III Service: (none) Author [...] PAST MEDICAL HISTORY Diagnosis Date - A-fib ([facility]) - Arrhythmia - Asthma - Cardiac syncope 02/05/2016 - Chronic obstructive pulmonary disease (COPD) ([facility]) - Congestive heart failure (HCC) - Degenerative [...] MD CNOV Observed: 09/11/2017 Status: COMPLETED Source: [place] 1:[address] [facility] REPOSITORY Office Visit (FAMPWS) Cat AHN ([id number]) 1945 M NFR Date Time Provider Department [...] legs syndrome (RLS) 02/22/2015 - Tachy-bora syndrome ([facility]) 11/19/2015 - Thyroid disorder - Unspecified functional disorder of intestine SPASTIC COLITIS - Unspecified hemorrhoids without mention of complication Hemorrhoids - Ventricular tachycardia ([facility]) 06/28/13 flecainide - Vitamin D deficiency 07/17/2011 [...] III MD Referring Provider: BUTCH PULIDO III [[id number]] Allergies As of Date: 09/11/2017 (No Known Allergies) Date Reviewed: 09/11/2017 Reviewed by: Suni ([facility]) KITTY Dominguez - Fully Assessed Reason for [...] 09/11/17 PROGRESS Observed: 08/13/2017 Status: COMPLETED Source: [place] 3:28 PM [facility] REPOSITORY HNO ID: [id number] Author: Butch Pulido III Service: (none) Author [...] PAST MEDICAL HISTORY Diagnosis Date - A-fib ([facility]) - Arrhythmia - Asthma - Cardiac syncope 02/05/2016 - Chronic obstructive pulmonary disease (COPD) ([facility]) - Congestive heart failure ([facility]) - Degenerative cervical disc 02/05/2011 - Diverticulosis [...] Moderate episode of recurrent major depressive disorder ([facility]) 03/24/2017 - Osteoporosis 07/15/2011 - Other and unspecified hyperlipidemia Hyperlipidemia - Other congenital hamartoses, 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 - Peripheral vascular disease ([facility]) - Renal stone 09/05/2011 - Restless leg syndrome 07/30/2010 - Restless legs syndrome (RLS) 02/22/2015 - Tachy-bora syndrome ([facility]) 11/19/2015 - Thyroid disorder - Unspecified functional disorder of intestine SPASTIC COLITIS - Unspecified hemorrhoids without mention of complication Hemorrhoids - Ventricular tachycardia ([facility]) 06/28/13 flecainide - Vitamin D deficiency 07/17/2011 [...] 2V FRONTAL/LAT Observed: 08/03/2017 Status: F Source: [place] 8:54 AM [facility] [place] REPOSITORY * * *Final Report* * * [...] IMPRESSION: Stable chest. No acute cardiopulmonary process. Golf Cart Attendant: PSCB Transcribe Date/Time: Aug 03 2017 8:57A Dictated by : SHWETA HORN MD This examination was interpreted and the report reviewed and electronically signed by: SHWETA HORN MD on Aug 03 2017 8:59AM EST [id number] PROGRESS Observed: 08/03/2017 Status: COMPLETED Source: [place] 8:[address] [facility] REPOSITORY HNO ID: [id number] Author: Lolis Welch (Rt) Service: (none) Author Type: Human Resource Management Instructor Type: Progress Notes Filed: 08/03/2017 8:55 AM [...] AM PROGRESS Observed: 08/03/2017 Status: COMPLETED Source: [place] 8:[address] [facility] REPOSITORY HNO ID: [id number] Author: Jackelin Jaffe Service: (none) Author Type: [...] PAST MEDICAL HISTORY Diagnosis Date - A-fib ([facility]) - Arrhythmia - Asthma - Cardiac syncope 02/05/2016 - Chronic obstructive pulmonary disease (COPD) ([facility]) - Congestive heart failure ([facility]) - Degenerative cervical disc 02/05/2011 - Diverticulosis [...] Moderate episode of recurrent major depressive disorder ([facility]) 03/24/2017 - Osteoporosis 07/15/2011 - Other and unspecified hyperlipidemia Hyperlipidemia - Other congenital hamartoses, 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 - Peripheral vascular disease ([facility]) - Renal stone 09/05/2011 - Restless leg syndrome 07/30/2010 - Restless legs syndrome (RLS) 02/22/2015 - Tachy-bora syndrome (HCC) 11/19/2015 - Thyroid disorder - Unspecified functional disorder of intestine SPASTIC COLITIS - Unspecified hemorrhoids without mention of complication Hemorrhoids - Ventricular tachycardia ([facility]) 06/28/13 flecainide - Vitamin D deficiency 07/17/2011 PAST SURGICAL HISTORY Procedure Laterality Date - IRAIS REDMAN IGE - ARTHROSCOPIC RELEASE SHOULDER JOINT 09/05 adhesive capsulitis L shoulder - COLONOSCOP W/ OR W/O [facility] SPEC 07/05/2001 - COLONOSCOP W/ OR W/O [facility] SPEC 12/08/2006 Colonoscopy - COLONOSCOP W/ OR W/O [facility] SPEC 03/21/13 Colonoscopy - EGD W/O [...] SEVERITY SOURCE 06/07/2018 Drug No Known Unknown [facility] Allergy/416 Allergies/A00778 Hospital 250118(SNOM 0388(RXNORM) Repository ED CT) 06/04/2018 Drug levofloxacin/F00 Unknown Unknown [facility] Allergy/804 7125666(RXNORM) Hospital 473640(SNOM Repository ED CT) Drug NO KNOWN [facility] Class/21592 ALLERGIES Other [place] 1003(SNOMED Repository CT) ENCOUNTERS ENCOUNTERS ADMIT/DISCHARGE ACCOUNT ADMITTING ENCOUNTER LOCATION SOURCE NUMBER CLASS 07/20/2018/07/21/19 [id number] Ambulatory [address] Repository 07/19/2018/07/19/19 [id number] Ambulatory [address] Repository 06/14/2018/06/14/[id number] Repository 06/09/2018 [id number] Ambulatory [facility] ing:US Repository 06/08/2018/06/08/20 [id number] Ambulatory BMSBuilding:B [place] [address].[facility] Repository 06/08/2018/06/08/20 [id number] Ambulatory [address] ing:ENRoom: Repository AC10 06/05/2018/06/05/20 [id number] Ambulatory BMSBuilding:B [place] [address].[facility] Repository 06/04/2018/06/04/20 [id number] Ambulatory BMSBuilding:B [place] [address].[facility] Repository 06/01/2018/06/02/[id number] Repository 05/06/2018/05/06/20 [id number] CLAUDIO JOHNS Ambulatory [address] Other [place] Repository 04/23/2018/04/26/20 [id number] Ambulatory [address] Main [place] Repository 04/13/2018/04/13/20 [id number] Ambulatory [address] Main [place] Repository 03/15/2018/03/16/20 [id number] Ambulatory [address] Main [place] Repository 12/24/2017/12/25/19 [id number] Ambulatory [address] Main [place] Repository 11/19/2017/11/20/19 [id number] Ambulatory [address] Main [place] Repository 11/19/2017/11/21/19 [id number] Ambulatory [address] Main [place] Repository 10/02/2017/10/03/19 [id number] Ambulatory [address] Main [place] Repository 10/02/2017/10/13/19 [id number] Ambulatory [address] Main [place] Repository 09/11/2017/09/15/19 [id number] Ambulatory [address] Main [place] Repository 09/11/2017/09/12/19 [id number] Ambulatory [address] Main [place] Repository 08/13/2017/08/13/19 [id number] Ambulatory [address] Main [place] Repository 08/03/2017/08/03/19 [id number] Ambulatory [address] Main [place] Repository 08/03/2017/08/05/19 [id number] Ambulatory [address] Main [place] Repository PAYERS PAYERS ENCOUNTER GUARANTOR PAYER SUBSCRIBER SOURCE 06/09/2018 H PRITESH Primary H PRITESH Watson [id number] [place] Insurance:[place] PPOPolicy [id number] 15[address]Jex: 330) Number: Repository [phone] HP) [id number] Date:[id number] [address]JQ: 06/09/2018 Secondary NOT GIVENUNK [place] Insurance:SELF PAY [facility] Number: Effective Repository Date:2018-06-04 06/08/2018 H PRITESH Primary H PRITESH Watson [id number] [place] Insurance:HUMANA BASHDOB: [place], [place] MEDICARE [facility] [id number] [address]Cav: (330) Number: Repository [phone] () [id number] Date:7519-47-19XP [address] [address]LO: 06/08/2018 Secondary NOT GIVENUNK [place] Insurance:SELF PAY [facility] Number: Effective Repository Date:2018-06-08 06/08/2018 H PRITESH Primary H PRITESH [place] [id number] [place] Insurance:HUMANA [place] PPOPolicy [id number] [address]Cmv: (330) Number: Repository [phone] () [id number] Date:2272-95-47JZ [address] [address]IR: 06/08/2018 Secondary NOT GIVENUNK [place] Insurance:SELF PAY [facility] Number: Effective Repository Date:2018-06-07 06/05/2018 H PRITESH Primary H PRITESH [place] [id number] [place] Insurance:HUMANA [place] OPolicy [id number] [address]Dhj: (330) Number: Repository [phone] () [id number] Date:9018-94-05NR [address] [address]OC: 06/05/2018 Secondary NOT GIVENUNK [place] Insurance:SELF PAY [facility] Number: Effective Repository Date:2018-06-05 06/04/2018 H PRITESH Primary H PRITESH [place] [id number] [place] Insurance:HUMANA [place] OPolicy [id number] Hospital [address]Hdu: (330) Number: Repository [phone] () [id number] Date:[id number] [address] [address]JD: 06/04/2018 Secondary NOT GIVENUNK [place] Insurance:SELF PAY [facility] Number: Effective Repository Date:2018-06-02
== END ==
PROVIDERS: Family Provider Family Medicine; PCP Family Medicine; Referring Provider Surgery; Visit Provider Surgery
DX: E04.2 Nontoxic multinodular goiter (principal)
CPT/HCPCS: 76536

== ENCOUNTER → 2019-05-30 09:06 | Outpatient (CLI) | payer MEDICARE, SELFPAY ==
[2018-06-08 05:40] VITALS: BMI 22.2
--- NOTE | 2019-05-30 09:15 | US_ITS ---
STUDY: THYROID ULTRASOUND REASON FOR EXAM: Male, 74 years old. Thyroid nodule follow-up TECHNIQUE: Ultrasound evaluation of the thyroid was performed with real-time and static xavier-scale imaging. COMPARISON: 06/09/2018 thyroid ultrasound FINDINGS: RIGHT LOBE: The right lobe of the thyroid gland measures 4.9 x 1.5 x 2.0 cm. There is a heterogeneous echotexture. There are at least 2 nodules in the right thyroid measuring 0.1 x 0.9 x 0.5 cm and 0.7 x 0.8 x 0.7 cm. These are primarily isoechoic and unchanged since the prior study. There is a lobulated appearance of the right thyroid with vascularity. This is similar to the prior study. LEFT LOBE: The left lobe of the thyroid gland measures 4.9 x 1.9 x 2.7 cm. There is a heterogeneous. There are several nodules on the left side of the thyroid from measuring 2, 1.8, 1.0, 1.4, and 0.8 cm. These are relatively stable since prior study and show increased vascularity in the left thyroid compared to the right. These are similar in size to the prior study allowing for any differences in technique. ISTHMUS: The isthmus measures 3 mm . The regional lymph nodes are normal. US/Thyroid IMPRESSION: Enlarged lobulated thyroid multinodular goiter, stable since prior study., Recommend continued follow-up ultrasound. Electronically Signed: Fiorella Islas MD at 17:37 EST Tel , Service support ,
== END ==
PROVIDERS: Family Provider Family Medicine; PCP Family Medicine; Referring Provider Surgery; Visit Provider Surgery
DX: E04.2 Nontoxic multinodular goiter (principal)
CPT/HCPCS: 76536

== ENCOUNTER → 2020-05-02 08:24 | Outpatient (CLI) | payer MEDICARE, SELFPAY ==
[2019-06-02 08:52] VITALS: BMI 22.2
--- NOTE | 2020-05-02 08:26 | US_ITS ---
STUDY: THYROID ULTRASOUND REASON FOR EXAM: Male, 75 years old. Thyroid Nodules TECHNIQUE: Ultrasound evaluation of the thyroid was performed with real-time and static xavier-scale imaging. COMPARISON: Comparison is made with prior examination dated 05/30/2019. FINDINGS: RIGHT LOBE: The right lobe of the thyroid gland measures 4.3 cm x 1.5 cm x 1.4 cm. There is a heterogeneous echotexture. With again, 2 nodules are seen in the right lobe measuring 9 mm x 7 mm x 6 mm and 8 mm x 7 mm x 7 mm. These nodules are solid. LEFT LOBE: The left lobe of the thyroid gland measures 5.1 cm x 2.1 cm x 2.4 cm. There is a heterogeneous echotexture. There is a 2.2 cm x 3.9 cm x 1.6 cm solid nodule in the inferior pole. Biopsy recommended. There is a 1.3 cm x 1.3 cm x 1.4 cm cystic nodule. There is also evidence of a 8 mm x 9 mm x 9 mm slightly echogenic nodule. ISTHMUS: The isthmus measures 3.0 mm. The regional lymph nodes are normal. US/Thyroid IMPRESSION: Dominant complex nodule in the inferior pole of the left lobe of the thyroid. Biopsy is recommended. Electronically Signed: Roberto Cantrell, at 11:02 EST , Service support ,
== END ==
PROVIDERS: PCP Family Medicine; Referring Provider Surgery; Visit Provider Surgery
DX: E04.2 Nontoxic multinodular goiter (principal)
CPT/HCPCS: 76536

== ENCOUNTER 2020-09-17 17:12 | Emergency (ER) | payer MEDICARE, SELFPAY ==
[2020-09-17 17:13] VITALS: BP 141/89; PULSE 95; RESP 20; TEMP 36.6; O2SAT 99; BMI 23.1
--- NOTE | 2020-09-17 17:38 | ED.DCSUM_ITS ---
History of Present Illness Chief Complaint: Other, Pain/Inj Detail of Chief Complaint: Neck pain Informant: Patient, Family Onset: Hours - Onset 0800 Context: Sudden Onset Timing: Continuous Quality: Pain Location: Posterior neck Current Severity: Mild Maximum Severity: Moderate Worsened by: Certain movements Relieved by: Nothing Associated Symptoms: No paresthesia, anesthesia motors. Status post fusion C4-6 Narrative: Patient is a 75-year-old male who presents with atraumatic posterior neck pain predominantly on the right side. He apparently turned his head felt a pop and had pain since. He has not taken anything because he has vomited 4 times. He denies blood or coffee grounds in his emesis. He denies paresthesia, anesthesia motors upper lower extremity. He has no other complaints. He contacted his [facility], Dr. Maximino Gore. Recommended going to the [facility] orthopedic urgent care. He was brought here instead. Prior similar symptoms: No Recent Illness/Hospitalization: No - Past Medical History (1) Multiple thyroid nodules Status: Acute (2) History of atrial fibrillation Status: Chronic (3) History of hyperlipidemia Status: Chronic (4) History of mitral valve prolapse Status: Chronic (5) History of sleep apnea Status: Chronic Past Medical History - Allergies and Home Meds Allergies/Adverse Reactions: Allergies ropinirole [From Requip] Allergy (Verified 09/17/20 17:20) Other Primary Care Physician: Genaro Pulido III, MD [Primary Care Provider] - Prior records reviewed: Yes Surgical History: noncontributory, - - Cardiac catheterization, MAZE procedure, TKR, Inguinal hernia repair, Rotator cuff repair, TURP, Disc fusion C5-6-7, MV replacement. Lives: Alone Smoking Status: Former smoker Alcohol: None Drugs: None Review of Systems General: Denies: Chills, Fever, Malaise, Subjective, Sweats Eyes: Denies: Visual changes - bilaterally, Blurred Vision - bilaterally Cardiovascular: Denies: Chest pain Respiratory: Denies: Dyspnea Musculoskeletal: Reports: Neck pain. Denies: Myalgias, Arthralgias, Back pain Neurological: Denies: Headache, Weakness, Parasthesia, Numbness Physical Exam Vital Signs/Narrative: Vital Signs Temp Pulse Resp BP Pulse Ox 09/17/20 17:13 97.8 F 95 20 H 141/89 H 99 Inital Vital Signs reviewed: Yes General: Well nourished, Well developed, No Acute Distress Head: Normocephalic, Atraumatic Eyes: Perrl, EOMI. Negative for: Pale conjunctiva, Scleral icterus ENT: Moist mucous membranes, No rhinorrhea Neck: No lymphadenopathy, No JVD, - - Pain palpation over the right paracervical muscles with spasm noted. He has limited range of motion due to prior surgery. Negative for: Supple, Nontender Cardiovascular: Regular rate, Regular rhythm, No murmurs Respiratory: No distress, CTA bilaterally, Chest nontender Skin: Normal color, No rash Neurological: Alert, Oriented x3, Cranial nerves II-XII grossly intact, Normal Strength, Normal Sensation, Normal DTR - Bicep, brachioradialis and tricep reflexes are 1-2+ and symmetric., - - Axillary, median, radial and ulnar function intact. Psychological: Normal affect, Normal Mood Diagnostic/Tx/Re-eval Chest X-Ray - ED: Read by ED Physician, - - Please read diagnostic testing portion of the chart 09/17/20 18:26 Cerv Spine 2 or 3 Views [RAD] Stat Three-view x-ray of the cervical spine was obtained. Hardware noted secondary to fusion of C4-6. Degenerative changes noted. Patient also has a pacemaker/defibrillator. The upper lung portions are unremarkable. - Medical Decision Making Patient with torticollis/posterior neck muscle spasm. He was medicated with Zofran for his nausea and vomiting morphine for his pain. Since spine surgeon requested x-rays x-rays were obtained. Patient's pain has improved significantly. Plan is discharge with pain medicine and follow-up with spine surgeon as needed ED Disposition - Plan for ED Patient: Disposition: Home or Assisted Living Diagnosis: Acute neck pain Instructions: ED Neck Pain Prescriptions: Hydrocodone Bitart/Apap 5-325 [[place] 5MG-325MG] 1 tablet PO Q6H PRN PRN 3 Days #10 tablet PRN Reason: Pain Transmission Status: Sent to [facility] Referrals: Genaro Pulido III, MD [Primary Care Provider] - As Needed Oleg Gore DO [NON-STAFF] - As Needed
[2020-09-17] MEDS: Ondansetron 4 MG/2 ML Vial IV (18:17)
[2020-09-17] MEDS: Morphine 4 MG/ML Syringe IV (18:19)
--- NOTE | 2020-09-17 18:26 | RAD_ITS ---
INDICATION: Injury/Pain EXAMINATION/TECHNIQUE: X-RAY - XR Spine Cervical 4 or 5 Views COMPARISON: None. FINDINGS: VERTEBRAE: Preserved vertebral body height. No fracture. No spondylolisthesis. Preservation of the normal cervical lordosis. Mild multilevel facet arthropathy. There is anterior fusion at C5-C7 with disc spacers and plate and screw construct. No evidence of hardware failure or loosening. DISCS: Mild multilevel disc space narrowing. NECK SOFT TISSUES: No prevertebral soft tissue widening. LUNG APICES: Clear. RAD/Cerv Spine 2 or 3 Views IMPRESSION: No acute abnormalities. Anterior fusion at C5-C7 with no evidence of hardware failure or loosening. Mild multilevel cervical spondylosis. Electronically Signed: Capo Bright MD at 18:45 EDT Tel , Service support ,
[2020-09-17 20:11] VITALS: RESP 18
== END 2020-09-17 20:13 | disposition home or self-care (01) ==
PROVIDERS: Emergency Provider Emergency Medicine; PCP Family Medicine
DX: M54.2 Cervicalgia (principal); E78.5 Hyperlipidemia, unspecified; I34.1 Nonrheumatic mitral (valve) prolapse; I48.91 Unspecified atrial fibrillation; Z87.891 Personal history of nicotine dependence; Z90.79 Acquired absence of other genital organ(s); Z98.1 Arthrodesis status; Z95.0 Presence of cardiac pacemaker
CPT/HCPCS: 72040; 99285; J2405

== ENCOUNTER 2020-09-20 14:01 | Emergency (ER) | payer MEDICARE, SELFPAY ==
[2020-09-20] VITALS (10 sets, daily range): BP systolic 141–152; BP diastolic 73–87; PULSE 69–79; RESP 14–23; TEMP 36.8; O2SAT 96–99; BMI 22.8
--- NOTE | 2020-09-20 14:28 | CT_ITS ---
STUDY: CT BRAIN WITHOUT CONTRAST REASON FOR EXAM: Male, 75 years old. Severe persistent headache RADIATION DOSAGE (If Supplied By Facility): CTDIvol = ( 44.99 ) mGy, DLP = ( 812.98 ) mGycm TECHNIQUE: Transaxial CT imaging of the brain was performed without administration of intravenous contrast material. Individualized dose optimization techniques were used for this CT. COMPARISON: No relevant priors. FINDINGS: Normal soft tissue structures. Normal calvarium. Normal size ventricles and extra-axial spaces for the patient''s age. Normal white matter tracts of the cerebral hemispheres. Normal basal ganglia and thalami. Normal brainstem. Normal cerebellum. There is evidence of subarachnoid hemorrhage in the region of the [place]. This is more pronounced along the right side. Small amount of blood is also seen along the posterior aspect of the third ventricle. There are no findings of an acute ischemic infarction. Atherosclerotic calcification of the cavernous portions of the internal carotid arteries. Hypoplasia of the left maxillary sinus. CT/Brain/Head without Contrast IMPRESSION: Subarachnoid hemorrhage. This is seen in the region of the [place] more prominent on the right side. A small amount of blood is also seen in the posterior aspect of the third ventricle. N.B. : The above information has been verbally conveyed by Roberto Cantrell MD to Carl Patterson MD, on 09/20/2020 15:49:16 (ET). Electronically Signed: Roberto Cantrell MD at 15:50 EDT , Service support ,
--- NOTE | 2020-09-20 14:40 | ED.VIS.GEN ---
History of Present Illness Chief Complaint: Other, Pain/Inj Informant: Patient Onset: Days - Onset Thursday Context: Sudden Onset Timing: Continuous Quality: Global head pain Location: Pain. Severe today as if his head was going to explode Current Severity: Severe Maximum Severity: Severe Worsened by: Nothing Relieved by: Nothing Associated Symptoms: No visual symptoms, nausea persistent neck pain since seen on Thursday Narrative: Patient is an elderly male with history of cervical fusion many years ago who was seen on Thursday for neck pain. X-ray did not reveal any acute pathology but there was significant degenerative changes noted. He presents now because he is complaining of severe global headache that started abruptly. He states the neck pain decreases to a score of 4 after taking [place] and last for approximately 1.5 hours then increases. There is no history of trauma. He denies double vision, blurred vision loss of vision. He states he had trouble swallowing Thursday. He has had no trouble with speech. There is been no drooling. He denies problems with balance. He denies cardiac respiratory symptoms. He denies nausea, vomiting or diarrhea. He denies paresthesia, anesthesia or motor weakness. He denies fever or chills. Prior similar symptoms: No - Neck is new neck pain is not Recent Illness/Hospitalization: Yes - For neck pain - Past Medical History (1) Multiple thyroid nodules Status: Acute (2) History of atrial fibrillation Status: Chronic (3) History of hyperlipidemia Status: Chronic (4) History of mitral valve prolapse Status: Chronic (5) History of sleep apnea Status: Chronic Past Medical History - Allergies and Home Meds Allergies/Adverse Reactions: Allergies ropinirole [From Requip] Allergy (Verified 09/20/20 14:05) Other Primary Care Physician: Genaro Pulido III, MD [Primary Care Provider] - Surgical History: noncontributory, - - Cardiac catheterization, MAZE procedure, TKR, Inguinal hernia repair, Rotator cuff repair, TURP, Disc fusion C5-6-7, MV replacement. Lives: Alone Smoking Status: Former smoker Alcohol: None Drugs: None Review of Systems General: Denies: Chills, Fever, Malaise, Subjective, Sweats Eyes: Denies: Visual changes - bilaterally, Blurred Vision - bilaterally, Diplopia ENT: Reports: - - Read HPI. Denies: Bilateral ear pain, Rhinorrhea, Sore throat Cardiovascular: Denies: Chest pain, Palpitations, Heart racing Respiratory: Denies: Dyspnea, Cough, Dyspnea on exertion, Orthopnea Gastrointestinal: Denies: Abdominal pain, Nausea, Vomiting, Diarrhea, Melena, Hematochezia Genitourinary: Denies: Dysuria, Hematuria, Frequency Musculoskeletal: Reports: Neck pain. Denies: Myalgias, Arthralgias, Back pain, Swelling, Extremity Pain, -, - Skin: Denies: Rash, Wounds Neurological: Reports: Headache. Denies: Weakness, Parasthesia Endocrine: Denies: Polyuria, Polydipsia Hematologic: Denies: Easy bruising, Easy bleeding Physical Exam Vital Signs/Narrative: Vital Signs Temp Pulse Resp BP Pulse Ox 09/20/20 14:02 98.3 F 79 14 150/85 H 98 Inital Vital Signs reviewed: Yes General: Well nourished, Well developed, No Acute Distress Head: Normocephalic, Atraumatic. Negative for: Trauma, Tenderness Eyes: Perrl, EOMI, - - There is no nystagmus. There is no APD.. Negative for: Pale conjunctiva, Scleral icterus ENT: Moist mucous membranes, No rhinorrhea, TM's clear, - - There is no tenderness over the temporal artery right or left. Neck: Supple, No lymphadenopathy, No JVD. Negative for: Nontender Cardiovascular: Regular rate, No murmurs, Irregular Respiratory: No distress, CTA bilaterally, Chest nontender Abdomen: Soft, Nontender, Nondistended, Normal bowel sounds Rectal: Deferred Back: Nontender, Normal Inspection. Negative for: CVA tenderness Extremities: Nontender, No edema. Negative for: Tenderness, Edema, Calf Tenderness Skin: Normal color, No rash Neurological: Alert, Oriented x3, Cranial nerves II-XII grossly intact, Normal Strength, Normal Sensation, Normal DTR - There is no clonus or Babinski sign., Normal Gait, - - Finger nose to finger is performed without past pointing. There is no truncal ataxia. Psychological: Depressed Diagnostic/Tx/Re-eval Impressions Brain CT 09/20/20 14:28 IMPRESSION: Subarachnoid hemorrhage. This is seen in the region of the [place] more prominent on the right side. A small amount of blood is also seen in the posterior aspect of the third ventricle. N.B. : The above information has been verbally conveyed by Roberto Cantrell MD to Carl Patterson MD, on 09/20/2020 15:49:16 (ET). Electronically Signed: Roberto Cantrell MD at 15:50 EDT , Service support , ADDENDUM: 09/20/20 1557 IMPRESSION: Subarachnoid hemorrhage. This is seen in the region of the [place] more prominent on the right side. A small amount of blood is also seen in the posterior aspect of the third ventricle. N.B. : The above information has been verbally conveyed by Roberto Cantrell MD to Carl Patterson MD, on 09/20/2020 15:49:16 (ET). Electronically Signed: Roberto Cantrell MD at 15:50 EDT , Service support , 09/20/20 14:28 Brain/Head without Contrast [CT] Stat Laboratory Results 09/20/20 09/20/20 14:40 14:40 WBC 15.0 H RBC 3.96 L Hgb 12.4 L Hct 37.7 L MCV 95.2 H MCH 31.3 MCHC 32.9 RDW Std Deviation 43.5 RDW Coeff of Diane 12.4 Plt Count 328 MPV 9.3 Immature Gran % (Auto) 0.500 Neut % (Auto) 78.3 H Lymph % (Auto) 10.1 L Wood % (Auto) 10.6 H Eos % (Auto) 0.1 Baso % (Auto) 0.4 Absolute Neuts (auto) 11.7 H Absolute Lymphs (auto) 1.51 Nucleated RBC % 0 Differential Comment SCANNED ESR 16 Sodium 138 Potassium 3.9 Chloride 106 Carbon Dioxide 24.0 Anion Gap 8 BUN 28 H Creatinine 0.83 Estim Creat Clear Calc 73.80 Est GFR (MDRD) Af Amer 115 Est GFR (MDRD) Non-Af 95 BUN/Creatinine Ratio 33.7 H Glucose 122 H Calcium 9.0 Malcolm case with neurosurgeon at [facility]. Goal is systolic of 140. Nurse was made aware this. Hemorrhagic stroke order set was initiated. Patient has been accepted at [facility]. This has been explained to patient and daughter and reason why transport is needed. - Medical Decision Making CT of the head was obtained to rule out intracranial bleed. ESR to evaluate for giant cell arteritis. Patient was medicated for his headache. CBC and BMP were ordered as well. - Critical Care Time Critical care time (excluding procedures): 30-74 minutes - Total critical care time 33 minutes. This included obtaining history, physical, review of prior records and medication, documentation, initiation of therapy, review of CAT scan and discussion with neurosurgeon at [facility] and transfer nurse., Discussing w/Patient &/or Family/[employer], Discussing w/Consultants, Arranging Admission or Transfer ED Disposition - Plan for ED Patient: Disposition: [facility] Diagnosis: Subarachnoid hemorrhage Referrals: Genaro Pulido III, MD [Primary Care Provider] -
[2020-09-20] MEDS: Ondansetron 4 MG/2 ML Vial IV (14:42)
[2020-09-20] MEDS: Morphine 4 MG/ML Syringe IV ×2 (14:42→15:42)
[2020-09-20 15:07] LABS: Erythrocyte Sedimentation Rate 16 mm/hr (0-20)
[2020-09-20 15:11] LABS: Absolute Lymphocyte Count 1.51 X10^3/uL (0.83-4.51); Absolute Neutrophil Count 11.7 X10^3/uL (2.0-7.7); Basophil# 0.06 X10^3/uL; Basophil% 0.4 % (0-1); Eosinophil# 0.02 X10^3/uL; Eosinophils% 0.1 % (0-5); Hematocrit 37.7 % (40-54); Hemoglobin 12.4 g/dL (13.0-16.5); Lymphocyte # 1.51 X10^3/ul (4.0); Lymphocyte % 10.1 % (19-41); Mean Corp Hgb Conc 32.9 g/dL (32-36); Mean Corpuscular Hgb 31.3 pg (27.0-32.0); Mean Corpuscular Volume 95.2 fL (80-94); Mean Platelet Vol. 9.3 fl (6.2-12.0); Monocyte# 1.58 X10^3/uL; Monocyte% 10.6 % (0-10); NRBC Flagged by Analyzer 0 % (0-5); Neutrophil # 11.72 X10^3/uL (2.7-7.7); Neutrophil % 78.3 % (47-70); POSITIVE DIFFERENTIAL YES; Platelet Count 328 K/mm3 (150-450); RBC Distribution Width CV 12.4 % (11.6-14.6); RBC Distribution Width SD 43.5 fl (35.1-43.9); Red Blood Count 3.96 M/mm3 (4.6-6.2)
[2020-09-20 15:12] LABS: Differential Indicated SCAN CRITERIA MET
[2020-09-20 15:17] LABS: Anion Gap 8 (5-15); BUN 28 mg/dL (7-18); BUN/Creat Ratio 33.7 RATIO (10-20); Chloride 106 mmol/L (98-107); Creatinine, Serum 0.83 mg/dL (0.70-1.30); EST Glomerular Filtration Rate 95 mL/min (>60); Est Glom Filt Rate - Afr Amer 115 mL/min (>60); Glucose 122 mg/dL (74-106); Potassium 3.9 mmol/L (3.5-5.1); Sodium Level 138 mmol/L (136-145)
[2020-09-20 15:35] LABS: Differential Comment SCANNED
[2020-09-20] MEDS: NIMODIPINE 30 MG CAPSULE 60 MG PO (16:22)
[2020-09-20 16:35] LABS: International Normalized Ratio 1.2; Prothrombin Time (Protime)PT. 14.3 SECONDS (11.7-14.9)
[2020-09-20 16:36] LABS: Partial Thromboplast Time 25.7 Seconds (24.1-36.2)
[2020-09-20] MEDS: Labetalol 100 MG/20 ML Vial 10 MG IV (16:47)
[2020-09-21 11:09] LABS: Pathologist Review Reviewed
== END 2020-09-20 17:06 | disposition short-term general hospital (02) ==
PROVIDERS: Emergency Provider Emergency Medicine; PCP Family Medicine
DX: I60.9 Nontraumatic subarachnoid hemorrhage, unspecified (principal); E78.5 Hyperlipidemia, unspecified; I48.91 Unspecified atrial fibrillation; I34.1 Nonrheumatic mitral (valve) prolapse; Z87.891 Personal history of nicotine dependence; Z90.79 Acquired absence of other genital organ(s); Z98.1 Arthrodesis status
CPT/HCPCS: 70450; 80048; 85025; 85610; 85652; 85730; 96361; 96374; 96375; 96376; 99285; J7030; A4216; J2405